=== PATIENT | male | born 1960 | race Caucasian/White ===

== ENCOUNTER 2019-10-28 10:31 | Outpatient (CLI) | payer BC, SELFPAY ==
--- NOTE | ~2019-10-28 | XR_ITS ---
EXAMINATION: XR chest 2V EXAM DATE: 10/28/2019 10:51 INDICATION: Right upper respiratory infection, cough. TECHNIQUE: Frontal and lateral projections of the chest obtained and reviewed. Comparison is made to prior examination from 04/17/2006. FINDINGS: Right midlung zone granuloma. The lungs are otherwise clear. There are no pleural effusio ns. The cardiomediastinal silhouette is within normal limits. There is no pneumothorax suspected. The bones and soft tissues are unremarkable. There is no significant interval change. IMPRESSION: No acute cardiopulmonary findings. Reviewed, dictated and finalized at location A. STRIKER
[2019-10-30 10:50] LABS: CMV IgM Antibody <30.00 AU/mL (<30.00)
[2019-10-30 16:32] LABS: EBV Nuclear Ab Interpretation Past; EBV Virus Capsid Ag IgM Ab <36.00 U/mL (<36.00)
[2019-10-31 10:47] LABS: CMV IgG Antibody <0.60 U/mL (<0.60)
== END 2019-10-28 10:32 | disposition home or self-care (01) ==
PROVIDERS: PCP Family Medicine; Visit Provider Nurse Practitioner Family
DX: J06.9 Acute upper respiratory infection, unspecified (principal)
CPT/HCPCS: 36415; 71046; 86644; 86645; 86664; 86665

== ENCOUNTER 2019-12-03 15:30 | Outpatient (CLI) | payer BC, SELFPAY ==
--- NOTE | ~2019-12-03 | XR_ITS ---
EXAMINATION: XR chest 2V EXAM DATE: 12/03/2019 16:09 INDICATION: Productive cough. TECHNIQUE: Frontal and lateral projections of the chest obtained and reviewed. Comparison is made to prior examination from 10/28/2019. FINDINGS: Right midlung zone granuloma unchanged. The lungs are otherwise clear. There are no pleur al effusions. The cardiomediastinal silhouette is within normal limits. There is no pneumothorax langford spected. The bones and soft tissues are unremarkable. IMPRESSION: No acute cardiopulmonary findings. Reviewed, dictated and finalized at location B.
== END 2019-12-03 15:31 | disposition home or self-care (01) ==
PROVIDERS: PCP Family Medicine; Visit Provider Nurse Practitioner Family
DX: R05 Cough (principal); R53.83 Other fatigue
CPT/HCPCS: 71046

== ENCOUNTER 2019-12-06 09:54 | Outpatient (CLI) | payer BC, SELFPAY ==
[2019-12-06 10:09] LABS: Basophils Percent Auto 0.6 % (0.2-1.2); Eosinophils Absolute Auto 0.1 K/mm3 (0-0.3); Eosinophils Percent Auto 2.2 % (0-4.4); Hematocrit 38.2 % (42.0-52.0); Hemoglobin 13.4 g/dL (14.0-18.0); Immature Granulocyte Absolute 0.02 K/mm3 (0.00-0.031); Immature Granulocyte Percent A 0.3 % (0-0.5); Lymphocytes Absolute Auto 2.55 K/mm3 (0.9-3.2); Mean Corpuscular HGB Conc 35.1 g/dl (32-36); Mean Corpuscular Hemoglobin 33.8 pg (26-34); Mean Corpuscular Volume 96.2 fl (80-100); Mean Platelet Volume 8.7 fl (7.4-10.4); Monocytes Absolute Auto 0.6 K/mm3 (0.1-0.6); Monocytes Percent Auto 9.9 % (2.6-8.5); Platelet Count Result 212 k/mm3 (150-375); Red Blood Count 3.97 M/mm3 (4.6-6.20); Red Cell Distribution Width 11.9 % (11.5-14.5); White Blood Count 6.4 K/mm3 (4.5-10.0)
[2019-12-06 10:21] LABS: Blood Urea Nitrogen 17 mg/dL (9-20); Calcium 8.6 mg/dL (8.4-10.2); Carbon Dioxide 28 mmol/L (22-30); Chloride 101 mmol/L (98-107); Estimated Glomerular Filt Rate > 60; Glucose 115 mg/dL (75-110); Potassium 4.2 mmol/L (3.4-5.0); Sodium 136 mmol/L (137-145)
[2019-12-06 11:07] LABS: Vitamin D 25 Hydroxy 41.8 ng/mL
[2019-12-09 15:58] LABS: Testosterone Total 374 ng/dL (250-1100)
== END 2019-12-06 09:55 | disposition home or self-care (01) ==
PROVIDERS: PCP Family Medicine; Visit Provider Nurse Practitioner Family
DX: R53.83 Other fatigue (principal)
CPT/HCPCS: 36415; 80048; 82306; 84403; 84443; 85025

== ENCOUNTER 2020-10-29 10:27 | Outpatient (CLI) | payer OTHER, SELFPAY ==
[2020-10-29 10:47] LABS: Basophils Absolute Auto 0.1 K/mm3 (0.0-0.1); Basophils Percent Auto 0.9 % (0.2-1.2); Eosinophils Absolute Auto 0.1 K/mm3 (0-0.3); Eosinophils Percent Auto 1.9 % (0-4.4); Hematocrit 42.7 % (42.0-52.0); Immature Granulocyte Absolute 0.01 K/mm3 (0.00-0.031); Immature Granulocyte Percent A 0.2 % (0-0.5); Lymphocytes Absolute Auto 2.13 K/mm3 (0.9-3.2); Lymphocytes Percent Auto 33.4 % (18.3-44.2); Mean Corpuscular HGB Conc 35.1 g/dl (32-36); Mean Corpuscular Hemoglobin 34.4 pg (26-34); Mean Corpuscular Volume 97.9 fl (80-100); Mean Platelet Volume 8.8 fl (7.4-10.4); Monocytes Absolute Auto 0.7 K/mm3 (0.1-0.6); Monocytes Percent Auto 10.8 % (2.6-8.5); Neutrophils Absolute Auto 3.4 K/mm3 (1.3-6.7); Neutrophils Percent Auto 52.8 % (45.5-73.1); Platelet Count Result 217 k/mm3 (150-375); Red Blood Count 4.36 M/mm3 (4.6-6.20); Red Cell Distribution Width 12.3 % (11.5-14.5); White Blood Count 6.4 K/mm3 (4.5-10.0)
[2020-10-29 13:18] LABS: Alanine Aminotransferase 38 U/L (4-50); Albumin Level 4.7 g/dL (3.5-5.1); Alkaline Phosphatase 61 U/L (38-126); Anion Gap 6 mmol/L (8-16); Aspartate Amino Transferase 36 U/L (17-59); Bilirubin,Total 1.2 mg/dL (0.2-1.3); Blood Urea Nitrogen 17 mg/dL (9-20); Calcium 9.4 mg/dL (8.4-10.2); Carbon Dioxide 29 mmol/L (22-30); Chloride 103 mmol/L (98-107); Cholesterol 262 mg/dL (0-200); Estimated Glomerular Filt Rate 56; Glucose 121 mg/dL (75-110); HDL Direct 54 mg/dL; Magnesium 2.1 mg/dL (1.6-2.3); Potassium 4.3 mmol/L (3.4-5.0); Sodium 138 mmol/L (137-145); Triglycerides 190 mg/dL (<150)
[2020-10-29 13:29] LABS: LDL Cholesterol Direct 194 mg/dL
[2020-10-29 13:49] LABS: Prostate Specific Antigen 1.9 ng/mL (< OR = 4.0)
[2020-11-02 11:29] LABS: Testosterone Free 71.8 pg/mL (35.0-155.0); Testosterone Total 443 ng/dL (250-1100)
== END 2020-10-29 10:28 | disposition home or self-care (01) ==
PROVIDERS: PCP Family Medicine; Visit Provider Nurse Practitioner Family
DX: I10 Essential (primary) hypertension (principal); R20.2 Paresthesia of skin; E78.2 Mixed hyperlipidemia; Z13.29 Encounter for screening for other suspected endocrine disorder; E56.9 Vitamin deficiency, unspecified; Z12.5 Encounter for screening for malignant neoplasm of prostate; R79.89 Other specified abnormal findings of blood chemistry
CPT/HCPCS: 36415; 80053; 80061; 82306; 82607; 83735; 84153; 84402; 84403; 84443; 85025; G0103

== ENCOUNTER → 2021-01-07 01:43 | Outpatient (CLI) | payer OTHER, SELFPAY ==
[2021-01-07 19:39] LABS: SARS-CoV-2 RNA PCR Negative
== END ==
PROVIDERS: PCP Family Medicine; Visit Provider Internal Medicine Gastroenterology
DX: Z01.812 Encounter for preprocedural laboratory examination (principal); Z20.822 Contact with and (suspected) exposure to COVID-19
CPT/HCPCS: C9803; U0003; U0005

== ENCOUNTER 2021-01-10 00:48 | Day surgery (SDC) | payer OTHER, SELFPAY ==
[2020-12-30 10:37] VITALS: BMI 28.3
[2021-01-10 08:00] VITALS: BP 136/78; PULSE 97; RESP 18; TEMP 36.6; O2SAT 100; BMI 28.5
[2021-01-10] MEDS: LACTATED RINGERS 1,000 ML 150 ML IV CONT (08:07)
--- NOTE | 2021-01-10 08:25 | PM.HPGS ---
History of Present Illness History of Present Illness Consent: Risks, benefits, and alternatives have been discussed and questions answered. Patient agrees to proceed with procedure. Chief complaint: neoplasm screening, family hx colon CA Narrative: Erickson Hart II is a 60 year old male referred for colon cancer screening. His father had colon cancer Review of Systems Review of Systems: All systems reviewed & are unremarkable except as noted in HPI and below PMFSH Past Medical History Medical History BMI 28.0-28.9,adult Family History Family History Father Carcinoma of colon Family history of primary malignant neoplasm of liver Mother No problems noted. 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 Gender identity (if verbalized by the patient): Male Spiritual care concerns: No Meds Home Medications and Allergies Home Medications Medication Instructions Recorded Confirmed Type albuterol sulfate 90 mcg/actuation 2 inhalation INHALATION Q4H PRN 12/03/19 10/29/20 Rx aerosol inhaler #6.7 gm losartan 100 mg tablet 100 mg PO DAILY #90 tablet 11/01/20 Rx Allergies Allergy/AdvReac Type Severity Reaction Status Date / Time Penicillins Allergy Unknown Unknown Verified 12/30/20 10:40 Vital Signs Vital Signs - 24 hr 01/10/21 08:00 Temperature 36.6 C Pulse Rate 97 Respiratory Rate 18 Blood Pressure 136/78 Pulse Oximetry 100 Exam Resp: Auscultation: clear to auscultation bilaterally Cardio: Rate: regular rate Rhythm: regular rhythm GI: GI Palp: Yes Soft to palpation and No Tenderness to palpation present (GI) Assessment and Plan Assessment and plan (1) Screening for colon cancer: Code(s): Z12.11 - Encounter for screening for malignant neoplasm of colon Status: Acute Assessment and Plan: Colonoscopy with possible biopsy or polypectomy or cautery or injection of substances.
--- NOTE | 2021-01-10 08:44 | P.PNAN_ITS ---
Anes - Initial Pre Proc Eval Procedure: Operation Date: 01/10/21 09:00 Proposed Procedures p Screening Colonoscopy - Sammy Belle MD Date/Time: 01/10/21 08:44 Surgeon: Sammy Belle MD Pre Op Diagnosis: neoplasm screening, family hx colon CA Patient Data Age: 60 Gender: M Height: 6 ft 2 in Weight: 100.9 kg Last Vital Signs Temp 97.8 F 01/10/21 08:00 Pulse 97 01/10/21 08:00 Resp 18 01/10/21 08:00 BP 136/78 01/10/21 08:00 Pulse Ox 100 01/10/21 08:00 Allergies Allergy/AdvReac Type Severity Reaction Status Date / Time Penicillins Allergy Unknown Unknown Verified 12/30/20 10:40 Home Medications Medication Instructions Recorded Confirmed Type albuterol sulfate 90 mcg/actuation 2 inhalation INHALATION Q4H PRN 12/03/19 10/29/20 Rx aerosol inhaler #6.7 gm losartan 100 mg tablet 100 mg PO DAILY #90 tablet 11/01/20 Rx Patient hx anesthesia problems: none Family hx anesthesia problems: none PMFSH Past Medical History Medical History (Updated 01/10/21 @ 08:44 by Sundar Gonzales MD) BMI 28.0-28.9,adult Mixed hyperlipidemia Family History Family History Father Carcinoma of colon Family history of primary malignant neoplasm of liver Mother No problems noted. 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 Questions were solicited and answers provided to the satisfaction of the patient/family/POA.
[2021-01-10 09:19] VITALS: BP 108/71; PULSE 67; RESP 18; O2SAT 100
[2021-01-10 09:29] VITALS: BP 122/78; PULSE 63; RESP 13; O2SAT 99
[2021-01-10 09:39] VITALS: BP 130/72; PULSE 65; RESP 14; O2SAT 97
== END 2021-01-10 10:05 | disposition home or self-care (01) ==
PROVIDERS: PCP Family Medicine; Visit Provider Internal Medicine Gastroenterology
PROC: 0DJD8ZZ Inspection of Lower Intestinal Tract, Via Natural or Artificial Opening Endoscopic (ICD-10-PCS; CPT 45378; principal; 2021-01-10 09:00)
DX: Z12.11 Encounter for screening for malignant neoplasm of colon (principal); K57.30 Diverticulosis of large intestine without perforation or abscess without bleeding; Z80.0 Family history of malignant neoplasm of digestive organs; E78.2 Mixed hyperlipidemia; F17.290 Nicotine dependence, other tobacco product, uncomplicated; Z79.51 Long term (current) use of inhaled steroids
CPT/HCPCS: 45378; C9803; J2704; J7120; U0003; U0005

== ENCOUNTER 2021-03-04 09:19 | Outpatient (CLI) | payer OTHER, SELFPAY ==
[2021-03-04 09:39] LABS: Basophils Absolute Auto 0.1 K/mm3 (0.0-0.1); Basophils Percent Auto 0.9 % (0.2-1.2); Eosinophils Absolute Auto 0.1 K/mm3 (0-0.3); Eosinophils Percent Auto 2.4 % (0-4.4); Hematocrit 41.5 % (42.0-52.0); Hemoglobin 14.6 g/dL (14.0-18.0); Immature Granulocyte Absolute 0.02 K/mm3 (0.00-0.031); Immature Granulocyte Percent A 0.3 % (0-0.5); Lymphocytes Absolute Auto 1.91 K/mm3 (0.9-3.2); Lymphocytes Percent Auto 32.8 % (18.3-44.2); Mean Corpuscular HGB Conc 35.2 g/dl (32-36); Mean Corpuscular Hemoglobin 34.5 pg (26-34); Mean Corpuscular Volume 98.1 fl (80-100); Monocytes Absolute Auto 0.7 K/mm3 (0.1-0.6); Monocytes Percent Auto 11.1 % (2.6-8.5); Neutrophils Absolute Auto 3.1 K/mm3 (1.3-6.7); Neutrophils Percent Auto 52.5 % (45.5-73.1); Platelet Count Result 204 k/mm3 (150-375); Red Blood Count 4.23 M/mm3 (4.6-6.20); Red Cell Distribution Width 12.4 % (11.5-14.5); White Blood Count 5.8 K/mm3 (4.5-10.0)
[2021-03-04 09:54] LABS: Anion Gap 6 mmol/L (8-16); Blood Urea Nitrogen 18 mg/dL (9-20); Calcium 9.4 mg/dL (8.4-10.2); Carbon Dioxide 29 mmol/L (22-30); Chloride 104 mmol/L (98-107); Cholesterol 223 mg/dL (0-200); Estimated Glomerular Filt Rate > 60; Glucose 121 mg/dL (75-110); HDL Direct 51 mg/dL; Sodium 139 mmol/L (137-145); Triglycerides 122 mg/dL (<150)
[2021-03-04 13:55] LABS: Hemoglobin A1C 5.8 % (<5.7)
[2021-03-04 15:30] LABS: LDL Cholesterol Direct 141 mg/dL
== END 2021-03-04 09:20 | disposition home or self-care (01) ==
PROVIDERS: PCP Family Medicine; Visit Provider Nurse Practitioner Family
DX: R94.4 Abnormal results of kidney function studies (principal); E78.2 Mixed hyperlipidemia; D64.9 Anemia, unspecified; R73.09 Other abnormal glucose
CPT/HCPCS: 36415; 80048; 80061; 83036; 85025

== ENCOUNTER 2021-04-29 10:36 | Outpatient (CLI) | payer OTHER, SELFPAY ==
[2021-04-29 11:01] LABS: Iron 102 ug/dL (49-181)
[2021-04-29 11:12] LABS: Percent Iron Saturation 33 % (20-50)
== END 2021-04-29 10:37 | disposition home or self-care (01) ==
PROVIDERS: PCP Family Medicine; Visit Provider Nurse Practitioner Family
DX: D64.9 Anemia, unspecified (principal)
CPT/HCPCS: 36415; 83540; 83550

== ENCOUNTER 2022-03-17 09:18 | Outpatient (CLI) | payer OTHER, SELFPAY ==
[2022-03-17 10:13] LABS: Hematocrit 41.5 % (42.0-52.0); Hemoglobin 14.2 g/dL (14.0-18.0); Mean Corpuscular HGB Conc 34.2 g/dl (32-36); Mean Corpuscular Hemoglobin 33.8 pg (26-34); Mean Corpuscular Volume 98.8 fl (80-100); Mean Platelet Volume 9.4 fl (7.4-10.4); Platelet Count Result 220 k/mm3 (150-375); Red Cell Distribution Width 12.6 % (11.5-14.5); White Blood Count 5.6 K/mm3 (4.5-10.0)
[2022-03-17 10:27] LABS: Alanine Aminotransferase 32 U/L (6-50); Albumin Level 4.5 g/dL (3.5-5.1); Alkaline Phosphatase 60 U/L (38-126); Anion Gap 7 mmol/L (8-16); Aspartate Amino Transferase 30 U/L (17-59); Bilirubin,Total 0.8 mg/dL (0.2-1.3); Blood Urea Nitrogen 17 mg/dL (9-20); Carbon Dioxide 29 mmol/L (22-30); Chloride 103 mmol/L (98-107); Cholesterol 254 mg/dL (0-200); Estimated Glomerular Filt Rate > 60; Glucose 127 mg/dL (65-110); HDL Direct 47 mg/dL; Potassium 4.7 mmol/L (3.4-5.0); Sodium 139 mmol/L (137-145); Triglycerides 189 mg/dL (<150)
[2022-03-17 10:38] LABS: LDL Cholesterol Direct 158 mg/dL
[2022-03-17 10:58] LABS: Prostate Specific Antigen 2.6 ng/mL (< OR = 4.0)
[2022-03-17 11:07] LABS: Vitamin D 25 Hydroxy 62.6 ng/mL
[2022-03-22 10:33] LABS: Testosterone Total 417 ng/dL (250-1100)
== END 2022-03-17 09:19 | disposition home or self-care (01) ==
LOC: ANHLAB 09:19
PROVIDERS: PCP Family Medicine; Visit Provider Nurse Practitioner Family
DX: E55.9 Vitamin D deficiency, unspecified (principal); I10 Essential (primary) hypertension; Z12.5 Encounter for screening for malignant neoplasm of prostate; R79.89 Other specified abnormal findings of blood chemistry; Z13.29 Encounter for screening for other suspected endocrine disorder
CPT/HCPCS: 36415; 80053; 80061; 82306; 84153; 84402; 84403; 84443; 85027; G0103

== ENCOUNTER 2022-04-25 17:44 | Outpatient (CLI) | payer OTHER, SELFPAY ==
[2022-04-25 17:58] LABS: Hematocrit 39.5 % (42.0-52.0); Hemoglobin 13.9 g/dL (14.0-18.0); Mean Corpuscular HGB Conc 35.2 g/dl (32-36); Mean Corpuscular Hemoglobin 34.5 pg (26-34); Mean Platelet Volume 8.8 fl (7.4-10.4); Platelet Count Result 231 k/mm3 (150-375); Red Blood Count 4.03 M/mm3 (4.6-6.20); Red Cell Distribution Width 12.3 % (11.5-14.5); White Blood Count 6.9 K/mm3 (4.5-10.0)
[2022-04-25 18:56] LABS: Hemoglobin A1C 5.9 % (<5.7)
== END 2022-04-25 17:45 | disposition home or self-care (01) ==
LOC: ANHLAB 17:46
PROVIDERS: PCP Family Medicine; Visit Provider Nurse Practitioner Family
DX: R73.09 Other abnormal glucose (principal); D64.9 Anemia, unspecified
CPT/HCPCS: 36415; 83036; 85027

== ENCOUNTER → 2022-07-07 09:39 | Outpatient (CLI) | payer OTHER, SELFPAY ==
--- NOTE | ~2022-07-07 | CT_ITS ---
EXAMINATION: CT abdomen pelvis wo/w con DATE: 07/07/2022 10:48 INDICATION: Right lower quadrant pain and right hip pain for one month. TECHNIQUE: Computed tomography (CT) of the abdomen and pelvis was performed without and with 100 cc O mnipaque 350 intravenous contrast. The dose-length product was 1514.48 mGy-cm. Automated exposure con trol and iterative reconstruction technique were employed. COMPARISON: CT dated 06/05/2012 FINDINGS: Lung bases are unremarkable. No significant pleural or pericardial effusion. Heart size is normal. There are calcified granulomas of the spleen. Ureters are normal in course and caliber withou t evidence for stone or hydronephrosis. Bladder is unremarkable. The liver, spleen, pancreas, adrenal glands and kidneys are unremarkable. The appendix is mildly thic kened and enhancing measuring 9 mm transversely. No significant periappendiceal inflammation is ident ified. No free air or free fluid. No evidence for abscess. Colonic diverticulosis without evidence fo r diverticulitis. Prostate gland is enlarged. No obstruction. There is atherosclerosis of the aorta w ithout aneurysm. No lymphadenopathy. Mild lumbar spondylosis. Small fat-containing umbilical hernia. Small fat-containing right inguinal hernia. No free air or free fluid. IMPRESSION: 1. Mildly thickened enhancing appendix measuring 9 mm transversely. No surrounding inflammatory lopez es are seen. Findings are equivocal for acute appendicitis. Clinically correlate. Reviewed, dictated and finalized at location A. IMPRESSION: 1. Mildly thickened enhancing appendix measuring 9 mm transversely. No surround ing inflammatory changes are seen. Findings are equivocal for acute appendiciti s. Clinically correlate.
[2022-07-07 10:37] LABS: Estimated Glomerular Filt Rate > 60
== END ==
PROVIDERS: PCP Family Medicine; Visit Provider Nurse Practitioner Family
DX: R10.31 Right lower quadrant pain (principal)
CPT/HCPCS: 74178; Q9967

== ENCOUNTER 2022-07-07 13:48 | Outpatient (CLI) | payer OTHER, SELFPAY ==
[2022-07-07 14:21] LABS: Basophils Absolute Auto 0.1 K/mm3 (0.0-0.1); Basophils Percent Auto 0.9 % (0.2-1.2); Eosinophils Absolute Auto 0.1 K/mm3 (0-0.3); Eosinophils Percent Auto 1.1 % (0-4.4); Hematocrit 42.2 % (42.0-52.0); Hemoglobin 14.5 g/dL (14.0-18.0); Immature Granulocyte Absolute 0.02 K/mm3 (0.00-0.031); Immature Granulocyte Percent A 0.3 % (0-0.5); Lymphocytes Absolute Auto 1.85 K/mm3 (0.9-3.2); Lymphocytes Percent Auto 28.1 % (18.3-44.2); Mean Corpuscular HGB Conc 34.4 g/dl (32-36); Mean Corpuscular Hemoglobin 33.7 pg (26-34); Mean Corpuscular Volume 98.1 fl (80-100); Monocytes Absolute Auto 0.6 K/mm3 (0.1-0.6); Monocytes Percent Auto 9.3 % (2.6-8.5); Neutrophils Percent Auto 60.3 % (45.5-73.1); Platelet Count Result 240 k/mm3 (150-375); Red Cell Distribution Width 12.6 % (11.5-14.5); White Blood Count 6.6 K/mm3 (4.5-10.0)
[2022-07-07 14:28] LABS: Alanine Aminotransferase 32 U/L (6-50); Albumin Level 4.5 g/dL (3.5-5.1); Alkaline Phosphatase 71 U/L (38-126); Anion Gap 7 mmol/L (8-16); Aspartate Amino Transferase 27 U/L (17-59); Bilirubin,Total 0.6 mg/dL (0.2-1.3); Blood Urea Nitrogen 16 mg/dL (9-20); Calcium 9.2 mg/dL (8.4-10.2); Carbon Dioxide 30 mmol/L (22-30); Chloride 101 mmol/L (98-107); Estimated Glomerular Filt Rate > 60; Glucose 176 mg/dL (65-110); Potassium 4.5 mmol/L (3.4-5.0); Sodium 138 mmol/L (137-145); Uric Acid 6.3 mg/dL (3.5-8.5)
== END 2022-07-07 13:49 | disposition home or self-care (01) ==
LOC: ANHLAB 13:49
PROVIDERS: PCP Family Medicine; Visit Provider Nurse Practitioner Family
DX: R10.31 Right lower quadrant pain (principal)
CPT/HCPCS: 36415; 80053; 84550; 85025

== ENCOUNTER → 2022-10-27 08:49 | Outpatient (CLI) | payer OTHER, SELFPAY ==
--- NOTE | ~2022-10-27 | XR_ITS ---
AP view of the pelvis and AP and lateral views of the right hip Clinical history: Pain Findings: No acute fracture or dislocation is seen. Osseous alignment is anatomic. Minimal bony promi nence present at the femoral head neck junctions. Bilateral hip and SI joint spaces are preserved. So ft tissues are unremarkable. Impression: Minimal degenerative change of the bilateral hip joints. Reviewed, dictated and finalized at location . 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
--- NOTE | ~2022-10-27 | XR_ITS ---
EXAMINATION: XR lumbar spine 6V w bending DATE: 10/27/2022 09:39 INDICATION: Chronic low back pain TECHNIQUE: Anteroposterior, lateral in neutral, flexion and extension, and bilateral oblique views of the lumbar spine, and cone-down lateral view of the lumbosacral junction were obtained. COMPARISON: CT, 07/07/2022 FINDINGS: There are 2 mm of retrolisthesis of L2 on L3 and L3 on L4. No hypermobility is present with flexion or extension. The vertebral body heights are maintained. There is mild loss of intervertebra l disc space height throughout the lumbar spine. Small degenerative osteophytes project from the ante rior endplates of multiple vertebral bodies. There is mild facet joint osteoarthritis of the lower janet mbar spine. IMPRESSION: 1. Mild lumbar spondylosis without acute findings. Reviewed, dictated and finalized at location B. 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
== END ==
PROVIDERS: PCP Family Medicine; Visit Provider Nurse Practitioner Family
DX: R20.2 Paresthesia of skin (principal); M25.551 Pain in right hip; M43.06 Spondylolysis, lumbar region
CPT/HCPCS: 72114; 73502

== ENCOUNTER → 2022-12-08 14:56 | Outpatient (CLI) | payer OTHER, SELFPAY ==
--- NOTE | ~2022-12-08 | MR_ITS ---
EXAMINATION: MR hip RT wo/w con DATE: 12/08/2022 15:56 INDICATION: Worsening right hip pain TECHNIQUE: Magnetic resonance imaging (MRI) of the right hip was performed without intravenous contr ast. Sequences included full-field axial PD-weighted FS FSE and T1-weighted FSE, coronal of the pelvi s with PD-weighted FS FSE, T2-weighted FSE and T1-weighted FSE, small field of view of the right hip with axial PD-weighted FS FSE, sagittal PD-weighted FS FSE, coronal PD-weighted FS FSE and coronal T2 weighted FSE. Additional radial T1-weighted FGR oriented orthogonal to the acetabular rim were obt ained for evaluation of the labrum. Postcontrast T1-weighted FS FSE and axial view of the pelvis and coronal small field of view of the right hip were obtained. COMPARISON: None FINDINGS: Bones/labrum/cartilage: Alignment is normal. No fracture, avascular necrosis or pathologic marrow replacing process. Mild ri ght hip osteoarthritis with partial thickness cartilage loss without degenerative subchondral changes most prominent along the superolateral aspect of the joint space. There is a tear of the superolater al right acetabular labrum. Similar findings suggested but not diagnostically evaluated the contralat eral left hip on the larger [id number] images. Fluid: Symmetric physiologic amount of fluid within both hip joints. Soft tissues: Normal and symmetric muscle bulk and signal in the pelvis and visualized proximal thighs. The bilater al iliopsoas tendons are normal. Mild increased fluid signal and enhancement along the greater trocha nter consistent with mild gluteus medius and minimus bursitis. There is mild right gluteus minimus te ndinopathy without discrete tear. The remaining bilateral gluteal tendons are normal. Additional mild fluid signal and enhancement consistent with mild left ischial bursitis with mild tendinopathy witho ut discrete tear at the proximal left semimembranosus tendon. The remaining bilateral proximal hamstr ing tendons are normal. Mild sigmoid diverticulosis without adjacent from trace stranding to suggest diverticular colitis. Limited evaluation of visceral organs of the pelvis is otherwise unremarkable. No pathologically enlarged pelvic/inguinal lymphadenopathy. IMPRESSION: 1. Mild right hip osteoarthritis with tear at the superolateral right acetabular labrum. Similar find ings suggested but not diagnostically evaluated the contralateral left hip on the larger [id number] w images. 2. Mild left ischial bursitis with mild tendinopathy without tear of the proximal left semimembranosu s tendon. 3. Mild right gluteus medius and minimus bursitis and mild right gluteus minimus tendinopathy without discrete tear. Reviewed, dictated and finalized at location B. IMPRESSION: 1. Mild right hip osteoarthritis with tear at the superolateral right acetabula r labrum. Similar findings suggested but not diagnostically evaluated the contr alateral left hip on the larger [id number] images. 2. Mild left ischial bursitis with mild tendinopathy without tear of the proxim al left semimembranosus tendon. 3. Mild right gluteus medius and minimus bursitis and mild right gluteus minimu s tendinopathy without discrete tear.
== END ==
PROVIDERS: PCP Family Medicine; Visit Provider Nurse Practitioner Family
DX: R20.2 Paresthesia of skin (principal); M16.11 Unilateral primary osteoarthritis, right hip; M70.71 Other bursitis of hip, right hip
CPT/HCPCS: 73723; A9577

== ENCOUNTER → 2023-07-13 07:10 | Outpatient (CLI) | payer OTHER, SELFPAY ==
--- NOTE | ~2023-07-13 | XR_ITS ---
XR chest 2V DATE: 07/13/2023 07:25 INDICATION: Cough TECHNIQUE: PA and lateral views COMPARISON: None FINDINGS: Normal heart size. No hilar or mediastinal enlargement. No pulmonary infiltrate or consolid ation, pleural effusion or pulmonary vascular congestion or pneumothorax. IMPRESSION: No active cardiopulmonary disease Reviewed, dictated and finalized at location B.
== END ==
PROVIDERS: PCP Nurse Practitioner Family; Visit Provider Nurse Practitioner Family
DX: R05.9 Cough, unspecified (principal)
CPT/HCPCS: 71046

== ENCOUNTER 2023-08-14 06:52 | Outpatient (CLI) | payer OTHER, SELFPAY ==
[2023-08-14 07:15] LABS: Hematocrit 41.6 % (42.0-52.0); Hemoglobin 14.3 g/dL (14.0-18.0); Mean Corpuscular HGB Conc 34.4 g/dl (32-36); Mean Corpuscular Hemoglobin 33.6 pg (26-34); Mean Corpuscular Volume 97.9 fl (80-100); Mean Platelet Volume 8.7 fl (7.4-10.4); Platelet Count Result 215 k/mm3 (150-375); Red Blood Count 4.25 M/mm3 (4.6-6.20); Red Cell Distribution Width 12.4 % (11.5-14.5); White Blood Count 5.6 K/mm3 (4.5-10.0)
[2023-08-14 07:47] LABS: Glucose Fasting 130 mg/dL
[2023-08-14 19:02] LABS: Hemoglobin A1C 6.1 % (<5.7)
[2023-08-14 23:19] LABS: Alanine Aminotransferase 27 U/L (6-50); Albumin Level 4.2 g/dL (3.5-5.1); Alkaline Phosphatase 61 U/L (38-126); Anion Gap 7 mmol/L (8-16); Aspartate Amino Transferase 27 U/L (17-59); Bilirubin,Total 0.6 mg/dL (0.2-1.3); Blood Urea Nitrogen 19 mg/dL (9-20); Calcium 9.3 mg/dL (8.4-10.2); Carbon Dioxide 28 mmol/L (22-30); Chloride 103 mmol/L (98-107); Cholesterol 219 mg/dL (0-200); Estimated Glomerular Filt Rate 56; Glucose 131 mg/dL (65-110); HDL Direct 45 mg/dL; Potassium 4.6 mmol/L (3.4-5.0); Sodium 138 mmol/L (137-145); Triglycerides 150 mg/dL (<150)
[2023-08-14 23:30] LABS: LDL Cholesterol Direct 146 mg/dL
[2023-08-18 19:38] LABS: Testosterone Free 90.5 pg/mL (35.0-155.0); Testosterone Total 484 ng/dL (250-1100)
[2023-08-19 12:22] LABS: ANCA Screen Negative (Negative); Myeloperoxidase Ab <1.0 AI (<1.0); Proteinase-3 Ab <1.0 AI (<1.0); S cerevisiae Ab (IgA) 15.9 U (<=20.0); S cerevisiae Ab (IgG) 4.9 U (<=20.0)
== END 2023-08-14 06:53 | disposition home or self-care (01) ==
LOC: ANHLAB 06:54
PROVIDERS: Nurse Practitioner Family; PCP Nurse Practitioner Family; Visit Provider Nurse Practitioner Family
DX: I10 Essential (primary) hypertension (principal); R10.31 Right lower quadrant pain; Z12.5 Encounter for screening for malignant neoplasm of prostate; Z13.29 Encounter for screening for other suspected endocrine disorder; Z13.220 Encounter for screening for lipoid disorders; R79.89 Other specified abnormal findings of blood chemistry; R73.09 Other abnormal glucose
CPT/HCPCS: 36415; 80053; 80061; 82951; 82952; 83036; 84153; 84402; 84403; 84443; 85027; 86036; 86671; G0103

== ENCOUNTER 2023-11-23 07:38 | Outpatient (CLI) | payer OTHER, SELFPAY ==
[2023-11-23 08:45] LABS: Hematocrit 42.8 % (42.0-52.0); Hemoglobin 14.5 g/dL (14.0-18.0); Mean Corpuscular HGB Conc 33.9 g/dl (32-36); Mean Corpuscular Hemoglobin 33.3 pg (26-34); Mean Corpuscular Volume 98.4 fl (80-100); Mean Platelet Volume 9.4 fl (7.4-10.4); Platelet Count Result 246 k/mm3 (150-375); Red Blood Count 4.35 M/mm3 (4.6-6.20); Red Cell Distribution Width 12.3 % (11.5-14.5); White Blood Count 8.1 K/mm3 (4.5-10.0)
[2023-11-23 09:26] LABS: Prostate Specific Antigen 2.2 ng/mL (< OR = 4.0)
[2023-11-23 09:56] LABS: Hemoglobin A1C 6.6 % (<5.7)
[2023-11-23 10:54] LABS: Anion Gap 4 mmol/L (8-16); Blood Urea Nitrogen 20 mg/dL (9-20); Calcium 9.1 mg/dL (8.4-10.2); Carbon Dioxide 30 mmol/L (22-30); Chloride 102 mmol/L (98-107); Estimated Glomerular Filt Rate > 60; Glucose 123 mg/dL (65-110); Potassium 4.3 mmol/L (3.4-5.0); Sodium 136 mmol/L (137-145)
== END 2023-11-23 07:39 | disposition home or self-care (01) ==
LOC: ANHLAB 07:39
PROVIDERS: Physician Assistant Medical; PCP Family Medicine; Visit Provider Nurse Practitioner Family
DX: N28.9 Disorder of kidney and ureter, unspecified (principal); D64.9 Anemia, unspecified; R97.20 Elevated prostate specific antigen [PSA]; R73.03 Prediabetes
CPT/HCPCS: 36415; 80048; 83036; 84153; 85027; G0103

== ENCOUNTER 2024-05-19 13:18 | Outpatient (CLI) | payer OTHER, SELFPAY ==
[2024-05-19 13:48] LABS: Hematocrit 39.8 % (42.0-52.0); Hemoglobin 14.1 g/dL (14.0-18.0); Mean Corpuscular HGB Conc 35.4 g/dl (32-36); Mean Corpuscular Hemoglobin 34.8 pg (26-34); Mean Corpuscular Volume 98.3 fl (80-100); Platelet Count Result 225 k/mm3 (150-375); Red Blood Count 4.05 M/mm3 (4.6-6.20); Red Cell Distribution Width 12.2 % (11.5-14.5); White Blood Count 5.6 K/mm3 (4.5-10.0)
[2024-05-19 14:01] LABS: Alanine Aminotransferase 31 U/L (6-50); Albumin Level 4.4 g/dL (3.5-5.1); Alkaline Phosphatase 62 U/L (38-126); Anion Gap 9 mmol/L (4-12); Aspartate Amino Transferase 30 U/L (17-59); Bilirubin,Total 0.8 mg/dL (0.2-1.3); Blood Urea Nitrogen 17 mg/dL (9-20); Calcium 9.1 mg/dL (8.4-10.2); Carbon Dioxide 29 mmol/L (22-30); Chloride 99 mmol/L (98-107); Estimated Glomerular Filt Rate 56; Glucose 97 mg/dL (65-110); Potassium 4.3 mmol/L (3.4-5.0); Sodium 137 mmol/L (137-145)
[2024-05-19 15:40] LABS: D Dimer < 0.27 ug/mL (<0.48)
== END 2024-05-19 13:19 | disposition home or self-care (01) ==
LOC: ANHLAB 13:19
PROVIDERS: PCP Family Medicine; Visit Provider Nurse Practitioner Family
DX: R06.02 Shortness of breath (principal); R07.9 Chest pain, unspecified
CPT/HCPCS: 36415; 80053; 85027; 85380

== ENCOUNTER 2024-06-13 15:50 | Outpatient (CLI) | payer OTHER, SELFPAY ==
[2024-06-13 16:07] LABS: Basophils Absolute Auto 0.1 K/mm3 (0.0-0.1); Eosinophils Absolute Auto 0.1 K/mm3 (0-0.3); Hematocrit 41.3 % (42.0-52.0); Hemoglobin 14.6 g/dL (14.0-18.0); Immature Granulocyte Absolute 0.01 K/mm3 (0.00-0.031); Immature Granulocyte Percent A 0.1 % (0-0.5); Lymphocytes Absolute Auto 2.34 K/mm3 (0.9-3.2); Lymphocytes Percent Auto 33.5 % (18.3-44.2); Mean Corpuscular HGB Conc 35.4 g/dl (32-36); Mean Corpuscular Hemoglobin 34.8 pg (26-34); Mean Corpuscular Volume 98.6 fl (80-100); Monocytes Absolute Auto 0.9 K/mm3 (0.1-0.6); Monocytes Percent Auto 13.3 % (2.6-8.5); Neutrophils Absolute Auto 3.5 K/mm3 (1.3-6.7); Neutrophils Percent Auto 50.1 % (45.5-73.1); Platelet Count Result 217 k/mm3 (150-375); Red Blood Count 4.19 M/mm3 (4.6-6.20); Red Cell Distribution Width 12.3 % (11.5-14.5)
[2024-06-13 16:18] LABS: Alanine Aminotransferase 21 U/L (6-50); Albumin Level 4.6 g/dL (3.5-5.1); Alkaline Phosphatase 59 U/L (38-126); Anion Gap 8 mmol/L (4-12); Aspartate Amino Transferase 23 U/L (17-59); Bilirubin,Total 0.8 mg/dL (0.2-1.3); Blood Urea Nitrogen 22 mg/dL (9-20); Calcium 9.2 mg/dL (8.4-10.2); Carbon Dioxide 29 mmol/L (22-30); Chloride 100 mmol/L (98-107); Estimated Glomerular Filt Rate 56; Glucose 88 mg/dL (65-110); Potassium 4.3 mmol/L (3.4-5.0); Sodium 137 mmol/L (137-145)
[2024-06-13 16:27] LABS: Iron 138 ug/dL (49-181)
[2024-06-13 16:38] LABS: Percent Iron Saturation 41 % (20-50)
[2024-06-13 17:23] LABS: Folic Acid 19.8 ng/mL (2.76->20)
== END 2024-06-13 15:51 | disposition home or self-care (01) ==
LOC: ANHLAB 15:52
PROVIDERS: PCP Family Medicine; Visit Provider Nurse Practitioner Family
DX: R10.30 Lower abdominal pain, unspecified (principal); D64.9 Anemia, unspecified
CPT/HCPCS: 36415; 80053; 82607; 82746; 83540; 83550; 85025

== ENCOUNTER 2024-06-13 23:42 | Inpatient (IN) | payer OTHER, SELFPAY ==
--- NOTE | ~2024-06-13 | XR_ITS ---
XR chest 1V portable Ordering provider: Kevin Figueroa MD History: 63 years Male with . chest pain . Comparison: July 13, 2023 FINDINGS: MEDIASTINUM: The cardiac silhouette is not enlarged. LUNGS: No infiltrates, effusions or pneumothorax. OTHER: No free air under the diaphragm. IMPRESSION: No acute cardiopulmonary pathology. Reviewed, dictated and finalized at location A.
--- NOTE | 2024-06-13 23:44 | ECG_ITS ---
Test Date: 2024-06-13 23:47:45 Measurements Intervals [place] Rate: 90 P: 71 WI: 195 QRS: 61 QRSD: 112 T: 41 QT: 355 QTc: 436 Interpretive Statements SINUS RHYTHM POSSIBLE LEFT ATRIAL ENLARGEMENT INTRAVENTRICULAR CONDUCTION DELAY ST-T WAVE ABNORMALITY IN DIFFUSE LEADS- CONSIDER ISCHEMIA ABNORMAL ECG No previous ECG available for comparison Electronically Signed On 06-14-2024 07:50:27 CDT by Osmani Campos D.O.
[2024-06-13 23:47] VITALS: BP 180/92; PULSE 84; RESP 15; TEMP 36.5; O2SAT 100
[2024-06-14] VITALS (19 sets, daily range): BP systolic 112–150; BP diastolic 64–86; PULSE 54–87; RESP 12–24; TEMP 36.3–36.9; O2SAT 95–100; BMI 27.9; BMI 27.8
[2024-06-14 00:01] LABS: Basophils Absolute Auto 0.1 K/mm3 (0.0-0.1); Basophils Percent Auto 0.6 % (0.2-1.2); Eosinophils Absolute Auto 0.2 K/mm3 (0-0.3); Eosinophils Percent Auto 2.6 % (0-4.4); Hematocrit 41.1 % (42.0-52.0); Hemoglobin 14.6 g/dL (14.0-18.0); Immature Granulocyte Absolute 0.01 K/mm3 (0.00-0.031); Immature Granulocyte Percent A 0.1 % (0-0.5); Lymphocytes Absolute Auto 2.84 K/mm3 (0.9-3.2); Lymphocytes Percent Auto 35.2 % (18.3-44.2); Mean Corpuscular HGB Conc 35.5 g/dl (32-36); Mean Corpuscular Hemoglobin 34.8 pg (26-34); Mean Corpuscular Volume 97.9 fl (80-100); Mean Platelet Volume 9.2 fl (7.4-10.4); Monocytes Percent Auto 12.3 % (2.6-8.5); Neutrophils Percent Auto 49.2 % (45.5-73.1); Platelet Count Result 220 k/mm3 (150-375); Red Cell Distribution Width 12.3 % (11.5-14.5); White Blood Count 8.1 K/mm3 (4.5-10.0)
[2024-06-14] MEDS: NITROGLYCERIN SL 0.4 MG TABLET SUBLINGUAL (00:11)
[2024-06-14 00:12] LABS: Alanine Aminotransferase 22 U/L (6-50); Albumin Level 4.6 g/dL (3.5-5.1); Alkaline Phosphatase 82 U/L (38-126); Anion Gap 11 mmol/L (4-12); Aspartate Amino Transferase 26 U/L (17-59); Bilirubin,Total 0.5 mg/dL (0.2-1.3); Blood Urea Nitrogen 26 mg/dL (9-20); Calcium 9.4 mg/dL (8.4-10.2); Carbon Dioxide 25 mmol/L (22-30); Chloride 99 mmol/L (98-107); Estimated CRCL calculation 56 ml/min; Estimated Glomerular Filt Rate 51; Glucose 157 mg/dL (65-110); Lipase 128 U/L (23-300); Potassium 3.9 mmol/L (3.4-5.0); Sodium 135 mmol/L (137-145)
[2024-06-14 00:19] LABS: Prothrombin Time 13.7 Seconds (11.1-14.7)
[2024-06-14 00:20] LABS: Partial Thromboplastin Time 27.6 Seconds (22.3-36.8)
--- NOTE | 2024-06-14 00:20 | ED.GENADULT ---
HPI - General Adult General Chief complaint: Chest Pain Stated complaint: chest pain Time Seen by Provider: 06/13/24 23:47 History of Present Illness HPI narrative: Patient is a 63-year-old gentleman presents emergency department with chief complaint of left arm discomfort and fluttering in his chest. Patient states symptoms ongoing for the last month report that been getting more frequent and reports that they are worse with exertion. Patient reports that he is scheduled for a stress test next week but reports that today that discomfort in his arm continued after he stops exerting himself patient reports was worse whenever [place] and also reports that it was worse whenever he walked up the stairs. Related Data Allergies Allergy/AdvReac Type Severity Reaction Status Date / Time Penicillins Allergy Unknown Unknown Verified 05/19/24 12:36 Review of Systems Review of Systems: A 10 system review of systems was completed on the patient and is negative except for what is stated in the HPI. Nursing and ancillary documentation was reviewed. [facility] Past Medical History Medical History Acute bronchitis Cataract associated with other syndromes Elevated hemoglobin A1c Labral tear of hip joint Mixed hyperlipidemia New onset type 2 diabetes mellitus Paresthesia of right leg Prediabetes Screening for colon cancer Screening for malignant neoplasm of prostate Family History Family History Father Carcinoma of colon Family history of primary malignant neoplasm of liver Cerebrovascular accident Mother Acute myocardial infarction Other Diabetes mellitus Hypertension Social History Social History Smoking status: Current some day smoker (has one cigar every couple of months) Tobacco type: cigars Second hand tobacco smoke exposure: Yes Smoking end date: 09/24/81 Alcohol intake: current Drinks per week: 10 Substance use: never Substance use type: does not use Do You Feel Safe in your Home?: Yes Lack of Transportation: YES Lack of Food: Never True Current Housing: I Have Housing Concerned About Future Housing: No Difficulty Paying Gas/Electric Bills: No Difficulty Paying for Meds: No Currently Unemployed: No Education: Bachelor's Degree Difficulty w/ Childcare or Family Care: No Living arrangements: with family Occupation/Education: occupation 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 HEAD: Normocephalic, atraumatic. EYES: PERRLA and EOMI. ENT: Nares clear, no rhinorrhea or epistaxis. Mucous membranes moist. NECK: Supple. CHEST: Clear to auscultation. No respiratory distress. HEART: Regular rate and rhythm. No murmur heard. Normal peripheral pulses. ABDOMEN: Soft, nontender, nondistended, normal active bowel sounds. EXTREMITIES: Normal range of motion. No edema. SKIN: Warm, dry, no rash. NEURO: No focal deficits. Alert and oriented x3. PSYCH: Normal mood and affect. Course Vital Signs Vital signs: Vital Signs Temperature 36.5 C 06/13/24 23:47 Pulse Rate 84 06/13/24 23:47 Respiratory Rate 15 06/13/24 23:47 Blood Pressure 180/92 H 06/13/24 23:47 Pulse Oximetry 100 06/13/24 23:47 Oxygen Delivery Room Air 06/13/24 23:47 Temperature 36.5 C 06/13/24 23:47 Pulse Rate 86 06/14/24 01:47 Respiratory Rate 15 06/14/24 01:47 Blood Pressure 112/86 06/14/24 01:47 Pulse Oximetry 99 06/14/24 01:47 Oxygen Delivery Room Air 06/13/24 23:47 Medical Decision Making MDM Narrative Medical decision making narrat
[2024-06-14 00:24] LABS: Troponin I 0.016 ng/mL (0.000-0.034)
--- NOTE | 2024-06-14 03:00 | ECG_ITS ---
Test Date: 2024-06-14 02:52:52 Measurements Intervals [place] Rate: 63 P: 62 MD: 189 QRS: 12 QRSD: 115 T: 23 QT: 427 QTc: 440 Interpretive Statements SINUS RHYTHM INTRAVENTRICULAR CONDUCTION DELAY BORDERLINE ST-T WAVE ABNORMALITY- ANT/INF LEADS BORDERLINE ECG Compared to ECG 06/13/2024 23:47:45 Possible ischemia no longer present Electronically Signed On 06-14-2024 07:53:01 CDT by Osmani Campos D.O.
[2024-06-14 03:46] LABS: Troponin I 0.058 ng/mL (0.000-0.034)
--- NOTE | 2024-06-14 04:52 | PC.NURSE ---
Report to GINGER Peña. Reports no questions at this time.
--- NOTE | 2024-06-14 05:03 | ADMGEN ---
This patient, Erickson Hart II, was admitted to IMU Room 210-01 at 0500. Patient/family oriented to hospital policies and general routines including ID bracelet, bed and alarms, visiting hours, pain management, procedures, bathroom and other care routines, personal items, smoking policy, room service/diet, and visiting hours. Information on how to activate the Rapid Response Team has been discussed. Patient/Family are encouraged to report perceived risks to care and to ask questions if they do not understand what they are told or what they should do.
[2024-06-14 06:47] LABS: Troponin I 0.135 ng/mL (0.000-0.034)
--- NOTE | 2024-06-14 08:44 | PM.IMHP ---
H&P: HPI History of Present Illness Date/Time: 06/14/24 08:44 Chief Complaint: Chest pain Narrative: Patient is a 63-year-old gentleman presents emergency department with chief complaint of left arm discomfort and fluttering in his chest. Patient states symptoms ongoing for the last month report that been getting more frequent and reports that they are worse with exertion. Patient reports that he is scheduled for a stress test next week but reports that today that discomfort in his arm continued after he stops exerting himself patient reports was worse whenever he was walking around at the [place] and also reports that it was worse whenever he walked up the stairs. Review of Systems Review of Systems: - CONSTITUTIONAL: Denies weight loss, fever and chills. - HEENT: Denies changes in vision and hearing - RESPIRATORY: Denies SOB and cough. - CV: reports palpitations and CP. - GI: Denies abdominal pain, nausea, vomiting and diarrhea. - : Denies dysuria and urinary frequency. - MSK: Denies myalgia and joint pain. - SKIN: Denies rash and pruritus. - NEUROLOGICAL: Denies headache and syncope. - PSYCHIATRIC: Denies recent changes in mood. Denies anxiety and depression. [facility] Past Medical History Medical History Acute bronchitis Cataract associated with other syndromes Elevated hemoglobin A1c Labral tear of hip joint Mixed hyperlipidemia New onset type 2 diabetes mellitus Paresthesia of right leg Prediabetes Screening for colon cancer Screening for malignant neoplasm of prostate Family History Family History Father Carcinoma of colon Family history of primary malignant neoplasm of liver Cerebrovascular accident Mother Acute myocardial infarction Other Diabetes mellitus Hypertension Social History Social History Smoking status: Current some day smoker Tobacco type: cigars Second hand tobacco smoke exposure: Yes Smoking end date: 09/24/81 Alcohol intake: current Drinks per week: 10 Substance use: never Substance use type: does not use Do You Feel Safe in your Home?: Yes Lack of Transportation: No Lack of Food: Never True Current Housing: I Have Housing Concerned About Future Housing: No Difficulty Paying Gas/Electric Bills: No Difficulty Paying for Meds: No Currently Unemployed: No Education: Decline to Answer Difficulty w/ Childcare or Family Care: No Living arrangements: with family Occupation/Education: occupation 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 Gender identity (if verbalized by the patient): Male Spiritual care concerns: No Meds Home Medications and Allergies Home Medications Medication Instructions Recorded Confirmed Type blood sugar diagnostic (OneTouch #100 ea 11/30/23 06/14/24 Rx Ultra Test strips) blood-glucose meter (OneTouch #1 ea 11/30/23 06/14/24 Rx Ultra2 Meter) lancets 30 gauge (OneTouch #100 ea 11/30/23 06/14/24 Rx UltraSoft 2 Lancet) losartan 100 mg tablet 100 mg PO DAILY #90 tabs 03/17/24 06/14/24 Rx metformin 500 mg tablet,extended 500 mg PO DAILY 06/14/24 06/14/24 History release 24 hr Allergies Allergy/AdvReac Type Severity Reaction Status Date / Time Penicillins Allergy Unknown Unknown Verified 05/19/24 12:36 Vital Signs Vital Signs - 24 hr 06/13/24 23:47 06/14/24 01:47 06/14/24 04:12 Temperature 97.7 F Pulse Rate 84 86 87 Respiratory Rate 15 15 15 Blood Pressure 180/92 H 112/86 146/82 H Pulse Oximetry 100 99 97 Oxygen Delivery Room Air 06/14/24 05:17 06/14/24 05:06 06/14/24 05:00 Temperature 97.4 F L Pulse Rate 80 69 Respiratory Rate 18 Blood Pressure 150/74 H Pulse Oximetry 98 Oxygen Delivery Room Air 06/14/24
[2024-06-14] MEDS: ASPIRIN 81 MG CHEWABLE TABLET PO (09:12)
--- NOTE | 2024-06-14 09:12 | PM.CNCAR ---
Assessment and Plan Assessment and plan (1) Chest pain: Code(s): R07.9 - Chest pain, unspecified Status: Acute (2) Elevated troponin: Code(s): R79.89 - Other specified abnormal findings of blood chemistry Status: Acute Plan this is a 63-year-old man with hypertension and non insulin-dependent diabetes who enters the hospital with exertional chest and left arm discomfort of recent onset which has been accelerating and culminating in unstable angina/ acute coronary syndrome. Appropriate medical therapy for this has been recommended. I will also start a beta-speedy which is of course indicated in the setting of ACS. If he is stable as he is at the moment we will plan for angiography on Sunday. If his condition destabilize is obviously that will occur urgently over the weekend. Cornel Jay MD [facility] History of Present Illness History of Present Illness Consult date/time: 06/14/24 09:12 Reason For Visit: chest pain, elevated troponin Narrative: this is a 63-year-old man without prior history of heart disease who enters the hospital with chest pain with exertion it has been going on for about a month or 2. The symptoms have been accelerating and he has decided to come to the emergency room last evening for evaluation. He states that over the course of the last 1-2 months he has noticed that with activity such as climbing an incline or hill or walking distances with a load to carry he is having some discomfort in the left axilla associated with shortness of breath. The 1st of these episodes occurred when he was attending the [facility] and noticed the symptoms and had to sit down to rest the symptoms have been very easily alleviated by resting. Yesterday he had an episode of these symptoms that occurred while climbing up the stairs to get to his bedroom and the symptoms were more persistent and did not resolve with rest very easily for that reason he decided to come to the emergency department for admit for evaluation. He his PCP has been notified of the symptoms and has actually scheduled him for a stress test which has not yet occurred. He has no other complaints his electrocardiogram shows sinus rhythm with some nonspecific T-wave abnormalities and no significant current of injury is identified. His troponin levels were normal on admission and had a slight rise to 0.1 and in this setting I am seeing him in consultation. Because of the troponin elevation a heparin drip has been ordered which has not yet been started. He is receiving aspirin, statin and appears to be very comfortable at this time. Explained to the patient and his was in the room that these are symptoms highly suggestive of unstable angina and rather than a stress test we would recommend proceeding with the angiogram. I discussed the details of coronary angiography and the risks he is agreeable to proceeding with this. The procedure is clearly not an emergency and this would be routinely planned for Sunday. Review of Systems Constitutional: Constitutional: Reports no additional constitutional complaints Eyes: Eyes: Reports no additional eye complaints ENT: Reports system reviewed and no additional complaints, except as documented Cardiovascular: Cardiovascular: Reports as per HPI and Reports chest pain Respiratory: Respiratory: Reports dyspnea on exertion Gastrointestinal: Gastrointestinal: Reports no additional gastrointestinal complaints Genitourinary: Genitourinary: Reports no additional male genitourinary complaints Musculoskeletal: Musculoskeletal: Reports no additional musculoskeletal complaints Integumentary/Breasts: Skin/Breast: Reports system reviewed and no additional complaints, except as docu Neurologic: Reports system reviewed and no additional complaints, except as documented Endocrine: Endocrine: Reports no additional endocrine complaints Hematologic/Lymphatic: Hematologic/Lymphatic: Reports
[2024-06-14] MEDS: ATORVASTATIN 40 MG TABLET 80 MG PO (09:15)
[2024-06-14] MEDS: LOSARTAN POTASSIUM 100 MG TABLET PO (09:22)
[2024-06-14 09:28] LABS: Basophils Absolute Auto 0.1 K/mm3 (0.0-0.1); Basophils Percent Auto 0.9 % (0.2-1.2); Eosinophils Absolute Auto 0.2 K/mm3 (0-0.3); Eosinophils Percent Auto 2.5 % (0-4.4); Hematocrit 42.1 % (42.0-52.0); Hemoglobin 14.9 g/dL (14.0-18.0); Immature Granulocyte Absolute 0.01 K/mm3 (0.00-0.031); Immature Granulocyte Percent A 0.2 % (0-0.5); Lymphocytes Absolute Auto 2.02 K/mm3 (0.9-3.2); Lymphocytes Percent Auto 31.4 % (18.3-44.2); Mean Corpuscular HGB Conc 35.4 g/dl (32-36); Mean Corpuscular Hemoglobin 34.5 pg (26-34); Mean Corpuscular Volume 97.5 fl (80-100); Monocytes Absolute Auto 0.7 K/mm3 (0.1-0.6); Neutrophils Absolute Auto 3.5 K/mm3 (1.3-6.7); Platelet Count Result 215 k/mm3 (150-375); Red Blood Count 4.32 M/mm3 (4.6-6.20); Red Cell Distribution Width 12.1 % (11.5-14.5); White Blood Count 6.4 K/mm3 (4.5-10.0)
[2024-06-14] MEDS: HEPARIN SODIUM 5,000 UNITS/ML VIAL 4000 UNITS IV PUSH ×2 (09:28→18:32)
[2024-06-14] MEDS: METOPROLOL TARTRATE 25 MG TABLET PO ×2 (09:29→20:59)
[2024-06-14] MEDS: HEPARIN SOD/D5W 100 UNITS/ML 25,000 UNITS/250 ML BAG 10 UNITS IV CONT (09:30)
[2024-06-14 09:36] LABS: Cholesterol 213 mg/dL (0-200); HDL Direct 42 mg/dL; Triglycerides 129 mg/dL (<150)
[2024-06-14 09:39] LABS: Prothrombin Time 13.5 Seconds (11.1-14.7)
[2024-06-14 09:44] LABS: Hemoglobin A1C 6.2 % (<5.7)
[2024-06-14 09:47] LABS: LDL Cholesterol Direct 147 mg/dL
[2024-06-14 11:58] LABS: Glucose Point of Care 176 mg/dl (65-105)
[2024-06-14 16:41] LABS: Partial Thromboplastin Time 48.6 Seconds (22.3-36.8)
[2024-06-14 16:57] LABS: Glucose Point of Care 93 mg/dl (65-105)
[2024-06-14 20:38] LABS: Glucose Point of Care 120 mg/dl (65-105)
[2024-06-15] VITALS (18 sets, daily range): BP systolic 111–146; BP diastolic 65–73; PULSE 52–78; RESP 18–20; TEMP 36.2–36.6; O2SAT 98–100
[2024-06-15 01:21] LABS: Partial Thromboplastin Time 116.1 Seconds (22.3-36.8)
[2024-06-15] MEDS: HEPARIN SOD/D5W 100 UNITS/ML 25,000 UNITS/250 ML BAG 12 UNITS IV CONT (07:00)
[2024-06-15 08:06] LABS: Glucose Point of Care 135 mg/dl (65-105)
[2024-06-15 08:32] LABS: Basophils Absolute Auto 0.1 K/mm3 (0.0-0.1); Eosinophils Absolute Auto 0.2 K/mm3 (0-0.3); Eosinophils Percent Auto 2.1 % (0-4.4); Hematocrit 43.2 % (42.0-52.0); Hemoglobin 15.4 g/dL (14.0-18.0); Immature Granulocyte Absolute 0.02 K/mm3 (0.00-0.031); Immature Granulocyte Percent A 0.3 % (0-0.5); Lymphocytes Absolute Auto 2.51 K/mm3 (0.9-3.2); Lymphocytes Percent Auto 34.6 % (18.3-44.2); Mean Corpuscular HGB Conc 35.6 g/dl (32-36); Mean Corpuscular Hemoglobin 34.8 pg (26-34); Mean Corpuscular Volume 97.7 fl (80-100); Mean Platelet Volume 9.4 fl (7.4-10.4); Monocytes Absolute Auto 0.6 K/mm3 (0.1-0.6); Monocytes Percent Auto 8.6 % (2.6-8.5); Neutrophils Absolute Auto 3.9 K/mm3 (1.3-6.7); Neutrophils Percent Auto 53.4 % (45.5-73.1); Platelet Count Result 233 k/mm3 (150-375); Red Blood Count 4.42 M/mm3 (4.6-6.20); Red Cell Distribution Width 12.2 % (11.5-14.5); White Blood Count 7.3 K/mm3 (4.5-10.0)
[2024-06-15 08:33] LABS: Alanine Aminotransferase 21 U/L (6-50); Albumin Level 4.6 g/dL (3.5-5.1); Alkaline Phosphatase 65 U/L (38-126); Anion Gap 9 mmol/L (4-12); Aspartate Amino Transferase 24 U/L (17-59); Bilirubin,Total 1.2 mg/dL (0.2-1.3); Blood Urea Nitrogen 18 mg/dL (9-20); Calcium 9.1 mg/dL (8.4-10.2); Carbon Dioxide 23 mmol/L (22-30); Chloride 101 mmol/L (98-107); Estimated CRCL calculation 70 ml/min; Estimated Glomerular Filt Rate > 60; Glucose 177 mg/dL (65-110); Magnesium 2.3 mg/dL (1.6-2.3); Potassium 4.3 mmol/L (3.4-5.0); Sodium 133 mmol/L (137-145)
[2024-06-15 08:41] LABS: Partial Thromboplastin Time 96.3 Seconds (22.3-36.8)
[2024-06-15] MEDS: ATORVASTATIN 40 MG TABLET 80 MG PO (08:44)
[2024-06-15] MEDS: ASPIRIN 81 MG CHEWABLE TABLET PO (08:44)
[2024-06-15] MEDS: METOPROLOL TARTRATE 25 MG TABLET PO ×2 (08:45→20:44)
[2024-06-15] MEDS: LOSARTAN POTASSIUM 100 MG TABLET PO (08:45)
--- NOTE | 2024-06-15 10:15 | PM.PNCARD ---
Progress Note: A&P Assessment and Plan (1) Chest pain: Code(s): R07.9 - Chest pain, unspecified Status: Acute (2) Elevated troponin: Code(s): R79.89 - Other specified abnormal findings of blood chemistry Status: Acute Plan 63-year-old man with previous history of hypertension and non insulin-dependent diabetes. He is anticipating left heart catheterization tomorrow for evaluation of recent onset of exertional angina. Will discontinue heparin prior to the catheterization and further recommendations regarding treatment will be determined by the angiographic findings Cornel Jay MD [facility] Subjective Date/time seen: date of service:06/15/24 10:15 Interval history: Follow-up visit in this 63-year-old man with: Exertional anginal-type chest pain with acceleration in days leading up to admission. He is asymptomatic in the hospital while and sedentary activity on intravenous heparin infusion. Catheterization recommended for tomorrow morning. Patient understands this and is looking forward to completing his ischemic evaluation. All questions answered regarding procedure. Exam Const: General: comfortable and no acute distress HENMT: Mouth: Yes moist mucous membranes Eyes: Sclera: sclerae normal Neck: Neck: supple and no JVD Resp: Effort & Inspection: normal respiratory effort Auscultation: clear to auscultation bilaterally Cardio: Rate: regular rate Rhythm: regular rhythm GI: GI Palp: Yes Soft to palpation Auscultation: normal bowel sounds Skin: General skin exam: normal color Neuro: Other: Alert and oriented x3 Extrem: General: normal to inspection Objective Data Vital Signs Vital Signs: Vital Signs - 24 hr 06/14/24 11:55 06/14/24 12:00 06/14/24 12:00 Temperature 36.6 C Pulse Rate 56 L 60 Respiratory Rate 12 Blood Pressure 141/75 H Pulse Oximetry 95 98 Oxygen Delivery Room Air 06/14/24 12:00 06/14/24 14:00 06/14/24 16:00 Temperature 36.6 C Pulse Rate 58 L 58 L Respiratory Rate 24 H Blood Pressure 130/68 Pulse Oximetry 99 Oxygen Delivery Room Air 06/14/24 16:00 06/14/24 18:00 06/14/24 16:00 Temperature Pulse Rate 56 L 60 Respiratory Rate Blood Pressure Pulse Oximetry Oxygen Delivery Room Air 06/14/24 19:58 06/14/24 20:59 06/14/24 20:00 Temperature 36.7 C Pulse Rate 58 L 68 60 Respiratory Rate 20 Blood Pressure 131/64 Pulse Oximetry 97 Oxygen Delivery 06/14/24 20:00 06/14/24 22:00 06/14/24 23:52 Temperature 36.6 C Pulse Rate 54 L 56 L Respiratory Rate 20 Blood Pressure 148/73 H Pulse Oximetry 100 Oxygen Delivery Room Air 06/15/24 00:00 06/15/24 00:00 06/15/24 02:00 Temperature Pulse Rate 52 L 55 L Respiratory Rate Blood Pressure Pulse Oximetry Oxygen Delivery Room Air 06/15/24 04:00 06/15/24 04:00 06/15/24 05:07 Temperature 36.4 C Pulse Rate 54 L 60 Respiratory Rate 20 Blood Pressure 132/70 Pulse Oximetry 98 Oxygen Delivery Room Air 06/15/24 06:00 06/15/24 07:56 06/15/24 08:45 Temperature 36.4 C Pulse Rate 54 L 66 66 Respiratory Rate 18 Blood Pressure 128/72 Pulse Oximetry 99 Oxygen Delivery 06/15/24 08:00 06/15/24 08:00 Temperature Pulse Rate 70 Respiratory Rate Blood Pressure Pulse Oximetry Oxygen Delivery Room Air Intake/Output Intake/Output: Intake & Output 06/12/24 06/13/24 06/14/24 06/15/24 23:59 23:59 23:59 23:59 Intake Total 1209.8 975.4 Output Total 800 600 Balance 409.8 375.4 Meds/Results Medications: Active Medications Generic Name Dose Route Start Last Admin Trade Name Freq PRN Reason Stop Dose Admin Aspirin 81 mg 06/14/24 08:00 06/15/24 08:44 Aspirin 81 Mg Chewable Tablet PO 81 mg DAILY@0800 CARL Administration Atorvastatin Calcium 80 mg 06/14/24 09:00 06/15/24 08:44 Atorvastatin 40 Mg Tablet PO 80 mg DAILY SC
[2024-06-15 11:38] LABS: Glucose Point of Care 94 mg/dl (65-105)
--- NOTE | 2024-06-15 12:05 | PM.IMPN ---
Progress Note: A&P Assessment and Plan (1) Non-STEMI (non-ST elevated myocardial infarction): Code(s): I21.4 - Non-ST elevation (NSTEMI) myocardial infarction Status: Acute (2) Diabetes mellitus: Qualifiers: Diabetes mellitus type: type 2 Diabetes mellitus nursing home insulin use: without nursing home use Diabetes mellitus complication status: without complication Qualified Code(s): E11.9 - Type 2 diabetes mellitus without complications Code(s): E11.9 - Type 2 diabetes mellitus without complications Status: Acute (3) Essential hypertension: Code(s): I10 - Essential (primary) hypertension Status: Acute Plan Patient is a 63-year-old gentleman presents emergency department with chief complaint of left arm discomfort and fluttering in his chest. Patient states symptoms ongoing for the last month report that been getting more frequent and reports that they are worse with exertion. Patient reports that he is scheduled for a stress test next week but reports that today that discomfort in his arm continued after he stops exerting himself patient reports was worse whenever he was walking around [place] the [place] and also reports that it was worse whenever he walked up the stairs. Presented to the ED for evaluation. initial EKG with ST depression in lateral leads. Initial troponin negative. Rest of the labs were unremarkable. Repeat EKG with resolution of the ST depression and up trend of troponin. troponin trend 0.016-0.05 8-0.135. Presentation suggestive of non ST elevation AL. received aspirin 325 mg and will continue on aspirin 81 mg daily. Added atorvastatin 80 mg daily check lipid profile and A1c. Cardiology has been consulted will also start anti coagulation with IV heparin. Beta-speedy added as tolerated. Resume losartan Type 2 diabetes on Jardiance Hypertension Screen for hyperlipidemia DVT prophylaxis heparin drip Code status full code Subjective Date/time seen: 06/15/24 12:05 Interval history: No new complaint. Enjoying his video game. No chest pain no shortness of breath Review of Systems Review of Systems: All systems reviewed & are unremarkable except as noted in HPI and below Exam Narrative: GENERAL: Well-appearing, well-nourished, and in no acute distress. HEAD: Normocephalic, atraumatic. EYES: PERRLA and EOMI. ENT: Nares clear, no rhinorrhea or epistaxis. Mucous membranes moist. NECK: Supple. CHEST: Clear to auscultation. No respiratory distress. HEART: Regular rate and rhythm. No murmur heard. Normal peripheral pulses. ABDOMEN: Soft, nontender, nondistended, normal active bowel sounds. EXTREMITIES: Normal range of motion. No edema. SKIN: Warm, dry, no rash. NEURO: No focal deficits. Alert and oriented x3. PSYCH: Normal mood and affect. Objective Data Vital Signs Vital Signs: Vital Signs - 24 hr 06/14/24 14:00 06/14/24 16:00 06/14/24 16:00 Temperature 97.8 F Pulse Rate 58 L 58 L 56 L Respiratory Rate 24 H Blood Pressure 130/68 Pulse Oximetry 99 Oxygen Delivery 06/14/24 18:00 06/14/24 16:00 06/14/24 19:58 Temperature 98.1 F Pulse Rate 60 58 L Respiratory Rate 20 Blood Pressure 131/64 Pulse Oximetry 97 Oxygen Delivery Room Air 06/14/24 20:59 06/14/24 20:00 06/14/24 20:00 Temperature Pulse Rate 68 60 Respiratory Rate Blood Pressure Pulse Oximetry Oxygen Delivery Room Air 06/14/24 22:00 06/14/24 23:52 06/15/24 00:00 Temperature 97.8 F Pulse Rate 54 L 56 L 52 L Respiratory Rate 20 Blood Pressure 148/73 H Pulse Oximetry 100 Oxygen Delivery 06/15/24 00:00 06/15/24 02:00 06/15/24 04:00 Temperature Pulse Rate 55 L 54 L Respiratory Rate Blood Pressure Pulse Oximetry Oxygen Delivery Room Air 06/15/24 04:00 06/15/24 05:07 06/15/24 06:00 Temperature 97.6 F Pulse Rate 60 54 L Respiratory Rate 20 Blood Pressure 132/70 Pulse Oximetry 98
[2024-06-15 13:53] LABS: Partial Thromboplastin Time 88.2 Seconds (22.3-36.8)
[2024-06-15 16:50] LABS: Glucose Point of Care 99 mg/dl (65-105)
[2024-06-15 21:06] LABS: Glucose Point of Care 107 mg/dl (65-105)
[2024-06-16] VITALS (31 sets, daily range): BP systolic 100–151; BP diastolic 58–77; PULSE 51–78; RESP 12–20; TEMP 36.1–37.1; O2SAT 96–100
--- NOTE | 2024-06-16 | ECHO_ITS ---
Patient Info Name: Erickson Hart Age: 63 years : 1960 Gender: Male Ht: 74 in Wt: 212 lbs BSA: 2.25 m2 HR: 61 bpm BP: 125 / 69 mmHg Technical Quality: Fair Exam Date: 06/16/2024 11:56 AM Exam Location: Echo Lab Patient Status: Outpatient Admit Date: 06/14/2024 Staff Ordering Physician: Stan Bautista MD Patient Care: Carina Ackerman RDCS Attending Provider: Makeda Nichole MD Exam Type: CA echo doppler color flow Study Info Indications - ACS Complete two-dimensional, color flow and Doppler transthoracic echocardiogram is performed. Summary 1. Complete two-dimensional, color flow and Doppler transthoracic echocardiogram is performed. 2. Normal left and right ventricular size and function. 3. The aortic valve is thickened and calcified. There is no aortic stenosis. There is mild aortic regurgitation. Left Ventricle Normal left ventricular chamber size. Normal LV systolic function. Right Ventricle Normal right ventricle size and systolic function. Left Atria Normal left atrial size. Right Atria Normal right atrial size. Aortic Valve Aortic valve leaflets are thickened. The right coronary cusp is calcified. The gradients across the valve do not suggest stenosis. The regurgitation visually and by pressure half time is mild. Pulmonic Valve Pulmonary valve is not well visualized. There is no stenosis or regurgitation visualized. Mitral Valve Mitral valve leaflets are thin and pliable. Trivial mitral regurgitation. Tricuspid Valve The tricuspid valve is thin and pliable. Trivial regurgitation. There is insufficient TR jet to calculate RVSP. Pericardium/Pleural Pericardium is normal in appearance with no evidence for significant pericardial effusion. Inferior Vena Cava Inferior vena cava is not well visualized. Aorta The aortic root size at the sinus of Valsalva is normal. Left Ventricular Outflow Tract Name Value Normal LVOT 2D LVOT Diameter 2.1 cm LVOT Doppler LVOT Peak Gradient 3 mmHg LVOT Mean Gradient 1 mmHg LVOT VTI 18 cm LVOT VTI/AV VTI Ratio 0.5 LVOT Stroke Volume 65 ml LVOT CO 3.4 l/min LVOT CI 1.5 l/min/m2 Pulmonic Valve Name Value Normal PV Doppler PV Peak Gradient 4 mmHg PV Regurgitation Doppler VA Peak End Diastolic Velocity 108 cm/s Mitral Valve Name Value Normal MV Doppler MV Decel Phelps 170 cm/s2 MV PHT
[2024-06-16] MEDS: HEPARIN SOD/D5W 100 UNITS/ML 25,000 UNITS/250 ML BAG 12 UNITS IV CONT ×2 (03:34→21:05)
[2024-06-16 05:19] LABS: Basophils Absolute Auto 0.1 K/mm3 (0.0-0.1); Basophils Percent Auto 0.7 % (0.2-1.2); Eosinophils Absolute Auto 0.2 K/mm3 (0-0.3); Eosinophils Percent Auto 2.2 % (0-4.4); Hematocrit 41.3 % (42.0-52.0); Hemoglobin 14.3 g/dL (14.0-18.0); Lymphocytes Absolute Auto 3.21 K/mm3 (0.9-3.2); Mean Corpuscular HGB Conc 34.6 g/dl (32-36); Mean Corpuscular Hemoglobin 33.9 pg (26-34); Mean Corpuscular Volume 97.9 fl (80-100); Mean Platelet Volume 9.4 fl (7.4-10.4); Monocytes Absolute Auto 0.9 K/mm3 (0.1-0.6); Neutrophils Absolute Auto 3.7 K/mm3 (1.3-6.7); Neutrophils Percent Auto 46.1 % (45.5-73.1); Platelet Count Result 214 k/mm3 (150-375); Red Blood Count 4.22 M/mm3 (4.6-6.20); Red Cell Distribution Width 12.2 % (11.5-14.5)
[2024-06-16 05:31] LABS: Alanine Aminotransferase 20 U/L (6-50); Albumin Level 4.2 g/dL (3.5-5.1); Alkaline Phosphatase 68 U/L (38-126); Anion Gap 8 mmol/L (4-12); Aspartate Amino Transferase 25 U/L (17-59); Bilirubin,Total 1.1 mg/dL (0.2-1.3); Blood Urea Nitrogen 19 mg/dL (9-20); Calcium 9.2 mg/dL (8.4-10.2); Carbon Dioxide 27 mmol/L (22-30); Chloride 101 mmol/L (98-107); Estimated CRCL calculation 60 ml/min; Estimated Glomerular Filt Rate 56; Glucose 109 mg/dL (65-110); Magnesium 2.2 mg/dL (1.6-2.3); Sodium 136 mmol/L (137-145)
[2024-06-16 05:34] LABS: Partial Thromboplastin Time 104.4 Seconds (22.3-36.8)
[2024-06-16 07:35] LABS: Glucose Point of Care 133 mg/dl (65-105)
[2024-06-16] MEDS: ATORVASTATIN 40 MG TABLET 80 MG PO (08:20)
[2024-06-16] MEDS: ASPIRIN 81 MG CHEWABLE TABLET PO (08:20)
[2024-06-16] MEDS: METOPROLOL TARTRATE 25 MG TABLET PO (08:20)
[2024-06-16] MEDS: LOSARTAN POTASSIUM 100 MG TABLET PO (08:20)
--- NOTE | 2024-06-16 10:06 | PM.PNCARD ---
Progress Note: A&P Assessment and Plan (1) Non-STEMI (non-ST elevated myocardial infarction): Code(s): I21.4 - Non-ST elevation (NSTEMI) myocardial infarction Status: Acute (2) Diabetes mellitus: Qualifiers: Diabetes mellitus complication status: without complication Diabetes mellitus long term acute care registered nurse insulin use: without long term acute care registered nurse use Diabetes mellitus type: type 2 Qualified Code(s): E11.9 - Type 2 diabetes mellitus without complications Code(s): E11.9 - Type 2 diabetes mellitus without complications Status: Acute Plan 63 yo man with DM type 2 and HLD presented with arm pain whose clinical presentation is consistent with NSTEMI NSTEMI - [facility] [place] today and will need TTE - currently on heparin drip - continue asa 81mg, losartan 100mg - switch lopressor to toprol 50mg daily and switch atorvastatin to rosuvastatin 40mg every evening HLD - uncontrolled without meds at home - previously did not tolerate atorvastatin; can try rosuvastatin 40mg every evening DM type 2 - glucose controlled inpatient under 200 Subjective Date/time seen: 06/16/24 10:06 Interval history: chest pain free today. no dyspnea. Review of Systems Review of Systems: All systems reviewed & are unremarkable except as noted in HPI and below Exam Const: General: comfortable HENMT: Mouth: Yes moist mucous membranes Eyes: EOM: EOMs intact bilaterally Neck: Neck: no JVD Resp: Effort & Inspection: normal respiratory effort Auscultation: clear to auscultation bilaterally Cardio: Rate: regular rate Rhythm: regular rhythm Heart sounds: no gallops, no murmurs and no rubs GI: GI Palp: Yes Soft to palpation Skin: General skin exam: normal color Neuro: Speech: normal speech Extrem: General: no edema and no pedal edema Psych: Affect: normal affect Objective Data Vital Signs Vital Signs: Vital Signs - 24 hr 06/15/24 11:37 06/15/24 16:00 06/15/24 12:00 Temperature 36.3 C L 36.6 C Pulse Rate 56 L 58 L 71 Respiratory Rate 19 18 Blood Pressure 111/65 146/73 H Pulse Oximetry 99 100 Oxygen Delivery 06/15/24 14:00 06/15/24 16:00 06/15/24 12:00 Temperature Pulse Rate 68 60 Respiratory Rate Blood Pressure Pulse Oximetry Oxygen Delivery Room Air 06/15/24 16:00 06/15/24 18:00 06/15/24 18:55 Temperature 36.2 C L Pulse Rate 78 63 Respiratory Rate 18 Blood Pressure 137/68 Pulse Oximetry 99 Oxygen Delivery Room Air 06/15/24 20:44 06/15/24 20:00 06/16/24 00:00 Temperature Pulse Rate 65 Respiratory Rate Blood Pressure Pulse Oximetry Oxygen Delivery Room Air Room Air 06/16/24 00:00 06/15/24 20:00 06/15/24 22:00 Temperature 36.6 C Pulse Rate 55 L 60 54 L Respiratory Rate 20 Blood Pressure 130/68 Pulse Oximetry 100 Oxygen Delivery 06/16/24 00:00 06/16/24 02:00 06/16/24 03:52 Temperature 36.5 C Pulse Rate 53 L 51 L 53 L Respiratory Rate 18 Blood Pressure 125/62 Pulse Oximetry 100 Oxygen Delivery 06/16/24 04:00 06/16/24 04:00 06/16/24 06:00 Temperature Pulse Rate 51 L 51 L Respiratory Rate Blood Pressure Pulse Oximetry Oxygen Delivery Room Air 06/16/24 07:40 06/16/24 08:20 06/16/24 08:00 Temperature 36.5 C Pulse Rate 78 61 Respiratory Rate 18 Blood Pressure 125/69 Pulse Oximetry 100 Oxygen Delivery Room Air 06/16/24 08:00 06/16/24 10:00 Temperature Pulse Rate 63 53 L Respiratory Rate Blood Pressure Pulse Oximetry Oxygen Delivery Intake/Output Intake/Output: Intake & Output 06/13/24 06/14/24 06/15/24 06/16/24 23:59 23:59 23:59 23:59 Intake Total 1209.8 1514.2 737.6 Output Total 800 2350 850 Balance 409.8 -835.8 -112.4 Meds/Results Medications: Active Medications Generic Name Dose Route Start Last Admin Trade Name Freq PRN Reason Stop Dose Admin Aspirin 81 mg 06/14/24 08:00 06/16/24 08:20 Aspirin 81 Mg Chewable T
--- NOTE | 2024-06-16 10:50 | WPDMODSED ---
Moderate Sedation Note-Pt Data Patient Data Diagnosis: NSTEMI Present Complaint: chest pain Procedure to be performed/Plan: [facility] Allergies Allergy/AdvReac Type Severity Reaction Status Date / Time Penicillins Allergy Unknown Unknown Verified 05/19/24 12:36 Home Medications Medication Instructions Recorded Confirmed Type blood sugar diagnostic (OneTouch #100 ea 11/30/23 06/14/24 Rx Ultra Test strips) blood-glucose meter (OneTouch #1 ea 11/30/23 06/14/24 Rx Ultra2 Meter) lancets 30 gauge (OneTouch #100 ea 11/30/23 06/14/24 Rx UltraSoft 2 Lancet) losartan 100 mg tablet 100 mg PO DAILY #90 tabs 03/17/24 06/14/24 Rx metformin 500 mg tablet,extended 500 mg PO DAILY 06/14/24 06/14/24 History release 24 hr Current Medications: Active Medications Aspirin (Aspirin 81 Mg Chewable Tablet) 81 mg PO DAILY@0800 [facility] Last Admin: 06/16/24 08:20 Dose: 81 mg Dextrose (Dextrose 50% 25 Gm/50 Ml Syringe) 12.5 gm IV PUSH PRN PRN; Protocol PRN Reason: Hypoglycemia Glucagon (Glucagon For Inj 1 Mg Vial) 1 mg IM PRN PRN; Protocol PRN Reason: Hypoglycemia Glucose (Glucose Oral Gel 15 Gm Of Glucse In 37.5 Gm Tube) 15 gm PO PRN PRN; Protocol PRN Reason: Hypoglycemia Heparin Sodium (Porcine) (Heparin Sodium 5,000 Units/Ml Vial) 4,000 units IV PUSH PRN PRN PRN Reason: aPTT less than 55 seconds Last Admin: 06/14/24 18:32 Dose: 4,000 units Heparin Sodium (Porcine) (Heparin Sodium 5,000 Units/Ml Vial) 4,000 units IV PUSH PRN PRN PRN Reason: aPTT 55 - 70 seconds Heparin Sodium/Dextrose (Heparin Sodium/D5w 100 Units/Ml) 25,000 units in 250 mls @ 12 mls/hr IV CONT .[id number] [facility]; Protocol Last Titration: 06/16/24 05:38 Dose: 1,200 units/hr, 12 mls/hr Dextrose (Dextrose 5% 1,000 Ml) 1,000 mls @ 100 mls/hr IVPB PRN PRN; Protocol PRN Reason: Hypoglycemia Insulin Aspart (Insulin Aspart (*Bkc) 100 Units/Ml) 2 - 5 units SUB-Q TIDWM CARL; Protocol Last Admin: 06/16/24 08:19 Dose: Not Given Losartan Potassium (Losartan Potassium 100 Mg Tablet) 100 mg PO DAILY CARL Last Admin: 06/16/24 08:20 Dose: 100 mg Metoprolol Succinate (Metoprolol Succinate Ext Rel 50 Mg Tabcr) 50 mg PO QAM CARL Morphine Sulfate (Morphine Sulfate (*Crx) 2 Mg/Ml Inj) 2 mg IV PUSH Q4H PRN PRN Reason: Pain Rated 7-10 Nitroglycerin (Nitroglycerin Sl 0.4 Mg Tablet) 0.4 mg SUBLINGUAL Q5MIN PRN PRN Reason: Chest Pain Ondansetron HCl (Ondansetron Inj 4 Mg/2 Ml Vial) 4 mg IV PUSH Q4H PRN PRN Reason: Nausea Perflutren Lipid Microsphere (Perflutren Lipid Microspheres 1.5 Ml Vial Diluted To 10 Ml Total Volume) 0 ml IV PUSH ONCE PRN; Protocol PRN Reason: adequate visualization Stop: 06/19/24 09:41 Rosuvastatin Calcium (Rosuvastatin 20 Mg Tablet) 40 mg PO QAM [facility] Sedation/Anesthesia: No previous sedation/anesthesia problems (including family history). [facility] Past Medical History Medical History (Updated 06/16/24 @ 10:13 by Stan Bautista MD) Acute bronchitis Cataract associated with other syndromes Elevated hemoglobin A1c Labral tear of hip joint Mixed hyperlipidemia New onset type 2 diabetes mellitus Paresthesia of right leg Prediabetes Screening for colon cancer Screening for malignant neoplasm of prostate Family History Family History Father Carcinoma of colon Family history of primary malignant neoplasm of liver Cerebrovascular accident Mother Acute myocardial infarction Other Diabetes mellitus Hypertension Social History Social History Smoking status: Current some day smoker Tobacco type: cigars Second hand tobacco smoke exposure: Yes Smoking end date: 09/24/81 Alcohol intake: current Drinks per week: 10 Substance use: never Substance use type: does not use Do You Feel Safe in your Home?: Yes Lack of Transportation: No Lack of Food: Never True Curr
--- NOTE | 2024-06-16 11:03 | WPDMODSED ---
Moderate Sedation Note-Pt Data Patient Data Diagnosis: NSTEMI Present Complaint: Chest P Allergies Allergy/AdvReac Type Severity Reaction Status Date / Time Penicillins Allergy Unknown Unknown Verified 05/19/24 12:36 Home Medications Medication Instructions Recorded Confirmed Type blood sugar diagnostic (OneTouch #100 ea 11/30/23 06/14/24 Rx Ultra Test strips) blood-glucose meter (OneTouch #1 ea 11/30/23 06/14/24 Rx Ultra2 Meter) lancets 30 gauge (OneTouch #100 ea 11/30/23 06/14/24 Rx UltraSoft 2 Lancet) losartan 100 mg tablet 100 mg PO DAILY #90 tabs 03/17/24 06/14/24 Rx metformin 500 mg tablet,extended 500 mg PO DAILY 06/14/24 06/14/24 History release 24 hr Current Medications: Active Medications Aspirin (Aspirin 81 Mg Chewable Tablet) 81 mg PO DAILY@0800 [facility] Last Admin: 06/16/24 08:20 Dose: 81 mg Dextrose (Dextrose 50% 25 Gm/50 Ml Syringe) 12.5 gm IV PUSH PRN PRN; Protocol PRN Reason: Hypoglycemia Glucagon (Glucagon For Inj 1 Mg Vial) 1 mg IM PRN PRN; Protocol PRN Reason: Hypoglycemia Glucose (Glucose Oral Gel 15 Gm Of Glucse In 37.5 Gm Tube) 15 gm PO PRN PRN; Protocol PRN Reason: Hypoglycemia Heparin Sodium (Porcine) (Heparin Sodium 5,000 Units/Ml Vial) 4,000 units IV PUSH PRN PRN PRN Reason: aPTT less than 55 seconds Last Admin: 06/14/24 18:32 Dose: 4,000 units Heparin Sodium (Porcine) (Heparin Sodium 5,000 Units/Ml Vial) 4,000 units IV PUSH PRN PRN PRN Reason: aPTT 55 - 70 seconds Heparin Sodium/Dextrose (Heparin Sodium/D5w 100 Units/Ml) 25,000 units in 250 mls @ 12 mls/hr IV CONT .[id number] [facility]; Protocol Last Titration: 06/16/24 05:38 Dose: 1,200 units/hr, 12 mls/hr Dextrose (Dextrose 5% 1,000 Ml) 1,000 mls @ 100 mls/hr IVPB PRN PRN; Protocol PRN Reason: Hypoglycemia Insulin Aspart (Insulin Aspart (*Bkc) 100 Units/Ml) 2 - 5 units SUB-Q TIDWM [facility]; Protocol Last Admin: 06/16/24 08:19 Dose: Not Given Losartan Potassium (Losartan Potassium 100 Mg Tablet) 100 mg PO DAILY [facility] Last Admin: 06/16/24 08:20 Dose: 100 mg Metoprolol Succinate (Metoprolol Succinate Ext Rel 50 Mg Tabcr) 50 mg PO QAM [facility] Morphine Sulfate (Morphine Sulfate (*Crx) 2 Mg/Ml Inj) 2 mg IV PUSH Q4H PRN PRN Reason: Pain Rated 7-10 Nitroglycerin (Nitroglycerin Sl 0.4 Mg Tablet) 0.4 mg SUBLINGUAL Q5MIN PRN PRN Reason: Chest Pain Ondansetron HCl (Ondansetron Inj 4 Mg/2 Ml Vial) 4 mg IV PUSH Q4H PRN PRN Reason: Nausea Perflutren Lipid Microsphere (Perflutren Lipid Microspheres 1.5 Ml Vial Diluted To 10 Ml Total Volume) 0 ml IV PUSH ONCE PRN; Protocol PRN Reason: adequate visualization Stop: 06/19/24 09:41 Rosuvastatin Calcium (Rosuvastatin 20 Mg Tablet) 40 mg PO QAM [facility] Sedation/Anesthesia: No previous sedation/anesthesia problems (including family history). [facility] Past Medical History Medical History (Updated 06/16/24 @ 10:13 by Stan Bautista MD) Acute bronchitis Cataract associated with other syndromes Elevated hemoglobin A1c Labral tear of hip joint Mixed hyperlipidemia New onset type 2 diabetes mellitus Paresthesia of right leg Prediabetes Screening for colon cancer Screening for malignant neoplasm of prostate Family History Family History Father Carcinoma of colon Family history of primary malignant neoplasm of liver Cerebrovascular accident Mother Acute myocardial infarction Other Diabetes mellitus Hypertension Social History Social History Smoking status: Current some day smoker Tobacco type: cigars Second hand tobacco smoke exposure: Yes Smoking end date: 09/24/81 Alcohol intake: current Drinks per week: 10 Substance use: never Substance use type: does not use Do You Feel Safe in your Home?: Yes Lack of Transportation: No Lack of Food: Never True Current Housing: I Have Housing Concerned Abo
--- NOTE | 2024-06-16 11:06 | WPDCARDPROC ---
Cardiac Cath Procedure Note Date of procedure:: 06/16/24 Performing physician:: CATHETERIZATION LABORATORY REPORT Procedure Date: 06/16/2024 Referring Physician: Dr. Candelario Anesthesia: Versed and Fentanyl were ordered and given in my presence at 1414, procedure ended at 1424. Supervision of nurse, Muna Kinney monitored moderate sedation with Versed and Fentanyl was provided for 10 minutes. Pre-op Diagnosis: NSTEMI Post-op Diagnosis: NSTEMI Procedure(s): Left heart catheterization with coronary angiography Access Site: Right radial artery; TR band for hemostasis Brief History and Clinical Indications: All risks, benefits and alternatives to left heart catheterization with or without percutaneous coronary intervention was discussed at length with the patient. Risk of complications including but not limited to bleeding, infection, arrhythmia, stroke, worsening kidney function, blood loss, groin hematoma, limb loss, emergency coronary artery bypass grafting, and even were discussed with the patient and all questions were answered. The patient understood and wished to proceed. Time out called, patient name, date of , medical record number, allergies, procedure performed, identify Rooter Operator, patient and staff member concurred with accurate data, procedure carried on. Findings: LEFT HEART CATHETERIZATION FINDINGS: 1. Left main: The left main coronary artery is widely patent without any significant obstructive disease. 2. Left anterior descending: The LAD has a high grade stenosis of 90% in the proximal vessel involving the first diagonal (1, 1, 0). The remainder of the vessel has luminal irregularities. 3. Left circumflex: The left circumflex artery gives off 2 main OM branches. Right before the bifurcation of to the OM1 and OM2 branches, there is a 70% stenosis. The remainder of the marginal branches have mild luminal irregularities without any significant obstructive angiographic disease. 4. Right coronary artery: The RCA is subtotaled at the ostium with left to right collaterals 5. Left ventricle: A. End-diastolic pressure 14 mmHg. B. LV gram deferred. C. No significant gradient across aortic valve on catheter pullback. Description of Procedure: Informed consent signed and placed in the chart. Patient transferred to environmental laboratory technician room. Prepped and draped in usual sterile fashion. 2% lidocaine injected subcutaneously in right wrist area. 22-gauge venipuncture catheter used to access the right radial artery with the Seldinger technique. 6-FR slender sheath placed in right radial artery. Radial cocktail consisting of nitroglycerin 200mcg, verapamil 2.5mg, and heparin 5000U was given. A radial TIG diagnostic catheter was used to engaged the LMCA and RCA as well as obtaining an LVEDP. Multiple orthogonal angiogram obtained and reviewed Assessment: Multivessel CAD Post Operative Condition: Stable No significant blood loss Disposition: Transfer to [facility] for CABG eval Plan: Can resume heparin drip tonight (7pm) without bolus as troponin has not peaked Continue toprol and asa Transfer to [facility] for CABG eval Stan Bautista Interventional Cardiology
[2024-06-16 11:20] LABS: Glucose Point of Care 114 mg/dl (65-105)
--- NOTE | 2024-06-16 11:31 | PM.IMPN ---
Progress Note: A&P Assessment and Plan (1) Non-STEMI (non-ST elevated myocardial infarction): Code(s): I21.4 - Non-ST elevation (NSTEMI) myocardial infarction Status: Acute (2) Diabetes mellitus: Qualifiers: Diabetes mellitus type: type 2 Diabetes mellitus skilled nursing insulin use: without tank terminal gauger use Diabetes mellitus complication status: without complication Qualified Code(s): E11.9 - Type 2 diabetes mellitus without complications Code(s): E11.9 - Type 2 diabetes mellitus without complications Status: Acute (3) Essential hypertension: Code(s): I10 - Essential (primary) hypertension Status: Acute Plan Patient is a 63-year-old gentleman presents emergency department with chief complaint of left arm discomfort and fluttering in his chest. Patient states symptoms ongoing for the last month report that been getting more frequent and reports that they are worse with exertion. Patient reports that he is scheduled for a stress test next week but reports that today that discomfort in his arm continued after he stops exerting himself patient reports was worse whenever he was walking around [place] the [place] and also reports that it was worse whenever he walked up the stairs. Presented to the ED for evaluation. initial EKG with ST depression in lateral leads. Initial troponin negative. Rest of the labs were unremarkable. Repeat EKG with resolution of the ST depression and up trend of troponin. troponin trend 0.016-0.05 8-0.135. Presentation suggestive of non ST elevation HI. received aspirin 325 mg and will continue on aspirin 81 mg daily. Added atorvastatin 80 mg daily check lipid profile and A1c. Cardiology has been consulted will also start anti coagulation with IV heparin. Beta-speedy added as tolerated. Resume losartan Type 2 diabetes on Jardiance Hypertension Screen for hyperlipidemia DVT prophylaxis heparin drip Code status full code Subjective Date/time seen: 06/16/24 11:31 Interval history: no overnight events no chest pain going for catheterization today. Review of Systems Review of Systems: All systems reviewed & are unremarkable except as noted in HPI and below Exam Narrative: GENERAL: Well-appearing, well-nourished, and in no acute distress. HEAD: Normocephalic, atraumatic. EYES: PERRLA and EOMI. ENT: Nares clear, no rhinorrhea or epistaxis. Mucous membranes moist. NECK: Supple. CHEST: Clear to auscultation. No respiratory distress. HEART: Regular rate and rhythm. No murmur heard. Normal peripheral pulses. ABDOMEN: Soft, nontender, nondistended, normal active bowel sounds. EXTREMITIES: Normal range of motion. No edema. SKIN: Warm, dry, no rash. NEURO: No focal deficits. Alert and oriented x3. PSYCH: Normal mood and affect. Objective Data Vital Signs Vital Signs: Vital Signs - 24 hr 06/15/24 11:37 06/15/24 16:00 06/15/24 12:00 Temperature 97.3 F L 98 F Pulse Rate 56 L 58 L 71 Respiratory Rate 19 18 Blood Pressure 111/65 146/73 H Pulse Oximetry 99 100 Oxygen Delivery 06/15/24 14:00 06/15/24 16:00 06/15/24 12:00 Temperature Pulse Rate 68 60 Respiratory Rate Blood Pressure Pulse Oximetry Oxygen Delivery Room Air 06/15/24 16:00 06/15/24 18:00 06/15/24 18:55 Temperature 97.1 F L Pulse Rate 78 63 Respiratory Rate 18 Blood Pressure 137/68 Pulse Oximetry 99 Oxygen Delivery Room Air 06/15/24 20:44 06/15/24 20:00 06/16/24 00:00 Temperature Pulse Rate 65 Respiratory Rate Blood Pressure Pulse Oximetry Oxygen Delivery Room Air Room Air 06/16/24 00:00 06/15/24 20:00 06/15/24 22:00 Temperature 97.8 F Pulse Rate 55 L 60 54 L Respiratory Rate 20 Blood Pressure 130/68 Pulse Oximetry 100 Oxygen Delivery 06/16/24 00:00 06/16/24 02:00 06/16/24 03:52 Temperature 97.7 F Pulse Rate 53 L 51 L 53 L Respiratory Rate 18 Blood Pressure 125/62 Pulse Oximetry
--- NOTE | 2024-06-16 13:50 | PC.NURSE ---
Pt to cath lab radiological technologist via stretcher for cardiac catheterization. Heparin drip stopped by cath lab radiological technologist RN.
--- NOTE | 2024-06-16 18:20 | PC.NURSE ---
Pt returned from lab engineer via wheelchair. No issues noted. at bedside
[2024-06-16] MEDS: SODIUM CHLORIDE 0.9% IV 1,000 ML 125 ML IV CONT (18:30)
[2024-06-16 21:40] LABS: Glucose Point of Care 134 mg/dl (65-105)
[2024-06-17] VITALS (17 sets, daily range): BP systolic 118–172; BP diastolic 58–82; PULSE 55–78; RESP 12–20; TEMP 36–36.9; O2SAT 97–100
--- NOTE | 2024-06-17 01:59 | ECG_ITS ---
Test Date: 2024-06-17 02:14:50 Measurements Intervals [place] Rate: 73 P: 103 MN: 187 QRS: 130 QRSD: 115 T: 164 QT: 393 QTc: 435 Interpretive Statements SINUS RHYTHM ARM LEADS REVERSED INTRAVENTRICULAR CONDUCTION DELAY ST-T WAVE ABNORMALITY IN ANTERAOLAT/INF LEADS- CONSIDER ISCHEMIA BASELINE ARTIFACT- II, III, AVF, V3 ABNORMAL ECG Compared to ECG 06/14/2024 02:52:52 ST-T WAVE ABNORMALITY, CONSIDER ISCHEMIA NOW PRESENT Electronically Signed On 06-17-2024 06:40:11 CDT by Osmani Campos D.O.
[2024-06-17] MEDS: NITROGLYCERIN SL 0.4 MG TABLET SUBLINGUAL ×2 (02:10→05:45)
[2024-06-17] MEDS: MORPHINE SULFATE (*CRX) 2 MG/ML INJ 1 MG IV PUSH (02:15)
--- NOTE | 2024-06-17 02:39 | ECG_ITS ---
Test Date: 2024-06-17 02:41:55 Measurements Intervals [place] Rate: 60 P: 77 AR: 187 QRS: 40 QRSD: 115 T: 18 QT: 426 QTc: 429 Interpretive Statements SINUS RHYTHM INTRAVENTRICULAR CONDUCTION DELAY BORDERLINE ST-T WAVE ABNORMALITY- INF/LAT LEADS BORDERLINE ECG Compared to ECG 06/17/2024 02:14:50 POSSIBLE ISCHEMIA NOW RESOLVED Electronically Signed On 06-17-2024 06:41:02 CDT by Osmani Campos D.O.
[2024-06-17 05:17] LABS: Partial Thromboplastin Time 62.1 Seconds (22.3-36.8)
[2024-06-17] MEDS: HEPARIN SODIUM 5,000 UNITS/ML VIAL 4000 UNITS IV PUSH (05:27)
[2024-06-17] MEDS: HEPARIN SOD/D5W 100 UNITS/ML 25,000 UNITS/250 ML BAG 14 UNITS IV CONT (06:29)
[2024-06-17 07:43] LABS: Glucose Point of Care 110 mg/dl (65-105)
[2024-06-17] MEDS: ASPIRIN 81 MG CHEWABLE TABLET PO (08:06)
[2024-06-17] MEDS: METOPROLOL SUCCINATE EXT REL 50 MG TABCR PO (08:06)
[2024-06-17] MEDS: LOSARTAN POTASSIUM 100 MG TABLET PO (08:06)
[2024-06-17] MEDS: ROSUVASTATIN 20 MG TABLET 40 MG PO (08:06)
[2024-06-17 11:56] LABS: Glucose Point of Care 145 mg/dl (65-105)
--- NOTE | 2024-06-17 12:01 | PC.NURSE ---
Pt transferred to [facility] Room 926 bed 1 via [facility] with Heparin drip infusing. , Narcisa, at bedside and aware of transfer. GINGER Moeller at receiving hospital called and updated with pt leaving and rate of infusion. All personal belongings transferred with pt's .
--- NOTE | 2024-06-17 12:04 | PM.TDS ---
Transfer Discharge Sum: Prov Provider Date of admission: 06/14/24 03:50 Primary care physician: Zain Cabrera MD Admitting clinician: Makeda Nichole MD Consults: 06/14/24 03:52 Consult to Physician Routine Comment: Consulting Provider: Cornel Jay call person/MD group to consult: cardiology Reason for consultation: Chest pain elevated troponin Has provider been notified: Yes DS: Admitting Diagnosis Discharge Date 06/16/2024 Admitting Diagnosis chest pain DS: Discharge Diagnosis Discharge Diagnosis (1) Non-STEMI (non-ST elevated myocardial infarction): Code(s): I21.4 - Non-ST elevation (NSTEMI) myocardial infarction Status: Acute (2) Diabetes mellitus: Qualifiers: Diabetes mellitus complication status: without complication Diabetes mellitus fci insulin use: without intermediate project manager use Diabetes mellitus type: type 2 Qualified Code(s): E11.9 - Type 2 diabetes mellitus without complications Code(s): E11.9 - Type 2 diabetes mellitus without complications Status: Acute (3) Essential hypertension: Code(s): I10 - Essential (primary) hypertension Status: Acute Transfer Discharge Sum: Med Medications Active and Home Medications: Home Medications blood sugar diagnostic (OneTouch Ultra Test strips) #100 ea 11/30/23 [Rx Confirmed 06/14/24] blood-glucose meter ([employer]comTouch Ultra2 Meter) #1 ea 11/30/23 [Rx Confirmed 06/14/24] lancets 30 gauge (OneTouch UltraSoft 2 Lancet) #100 ea 11/30/23 [Rx Confirmed 06/14/24] losartan 100 mg tablet 100 mg PO DAILY #90 tabs 03/17/24 [Rx Confirmed 06/14/24] metformin 500 mg tablet,extended release 24 hr 500 mg PO DAILY 06/14/24 [History Confirmed 06/14/24] Active Medications Aspirin (Aspirin 81 Mg Chewable Tablet) 81 mg PO DAILY@0800 [facility] Last Admin: 06/16/24 08:20 Dose: 81 mg Dextrose (Dextrose 50% 25 Gm/50 Ml Syringe) 12.5 gm IV PUSH PRN PRN; Protocol PRN Reason: Hypoglycemia Glucagon (Glucagon For Inj 1 Mg Vial) 1 mg IM PRN PRN; Protocol PRN Reason: Hypoglycemia Glucose (Glucose Oral Gel 15 Gm Of Glucse In 37.5 Gm Tube) 15 gm PO PRN PRN; Protocol PRN Reason: Hypoglycemia Heparin Sodium (Porcine) (Heparin Sodium 5,000 Units/Ml Vial) 4,000 units IV PUSH PRN PRN PRN Reason: aPTT less than 55 seconds Last Admin: 06/14/24 18:32 Dose: 4,000 units Heparin Sodium (Porcine) (Heparin Sodium 5,000 Units/Ml Vial) 4,000 units IV PUSH PRN PRN PRN Reason: aPTT 55 - 70 seconds Heparin Sodium/Dextrose (Heparin Sodium/D5w 100 Units/Ml) 25,000 units in 250 mls @ 0 mls/hr IV CONT .Q0M [facility]; Protocol Last Titration: 06/16/24 13:50 Dose: 0 units/hr, 0 mls/hr Dextrose (Dextrose 5% 1,000 Ml) 1,000 mls @ 100 mls/hr IVPB PRN PRN; Protocol PRN Reason: Hypoglycemia Sodium Chloride (Normal Saline Iv) 1,000 mls @ 125 mls/hr IV CONT .Q8H ONE Stop: 06/16/24 22:51 Insulin Aspart (Insulin Aspart (*Bkc) 100 Units/Ml) 2 - 5 units SUB-Q TIDWM [facility]; Protocol Last Admin: 06/16/24 11:27 Dose: Not Given Losartan Potassium (Losartan Potassium 100 Mg Tablet) 100 mg PO DAILY [facility] Last Admin: 06/16/24 08:20 Dose: 100 mg Metoprolol Succinate (Metoprolol Succinate Ext Rel 50 Mg Tabcr) 50 mg PO QAM [facility] Morphine Sulfate (Morphine Sulfate (*Crx) 2 Mg/Ml Inj) 2 mg IV PUSH Q4H PRN PRN Reason: Pain Rated 7-10 Nitroglycerin (Nitroglycerin Sl 0.4 Mg Tablet) 0.4 mg SUBLINGUAL Q5MIN PRN PRN Reason: Chest Pain Ondansetron HCl (Ondansetron Inj 4 Mg/2 Ml Vial) 4 mg IV PUSH Q4H PRN PRN Reason: Nausea Perflutren Lipid Microsphere (Perflutren Lipid Microspheres 1.5 Ml Vial Diluted To 10 Ml Total Volume) 0 ml IV PUSH ONCE PRN; Protocol PRN Reason: adequate visualization Stop: 06/19/24 09:41 Rosuvastatin Calcium (Rosuvastatin 20 Mg Tablet) 40 mg PO QAM [facility] Transfer Discharge Sum: Hosp Hospital Course Hospital course: Erickson Hart II is a 63 year old male who presents to the emergency department with chief complaint of
== END 2024-06-17 12:02 | disposition short-term general hospital (02) | DRG 282 ==
LOC: ANHED 06-14 03:54 → ANHIMU 06-14 04:41
PROVIDERS: Internal Medicine; Specialist; Admitting Provider Internal Medicine; Emergency Provider Emergency Medicine; PCP Family Medicine; Visit Provider Internal Medicine
PROC: 4A023N7 Measurement of Cardiac Sampling and Pressure, Left Heart, Percutaneous Approach (ICD-10-PCS; CPT 93452; principal; 2024-06-16 13:00)
DX: I21.4 Non-ST elevation (NSTEMI) myocardial infarction (principal); E11.9 Type 2 diabetes mellitus without complications; I10 Essential (primary) hypertension; E78.2 Mixed hyperlipidemia; F17.290 Nicotine dependence, other tobacco product, uncomplicated
CPT/HCPCS: 36415; 71045; 80053; 80061; 82607; 82746; 82948; 83036; 83540; 83550; 83690; 83735; 84484; 85025; 85610; 85730; 93005; 93306; 93458; 96365; 96366; 99285; A9270; C1769; C1887; C1894; G0378; J1644; J2250; J2270; J2305; J3010; J7030

== ENCOUNTER 2024-08-28 13:30 | Outpatient (RCR) | payer OTHER, SELFPAY ==
[2024-07-31 10:47] VITALS: BMI 27.1
[2024-08-28 13:35] VITALS: BMI 27.1
== END 2024-10-20 09:47 | disposition home or self-care (01) ==
LOC: ANHDMC 13:30
PROVIDERS: PCP Family Medicine; Visit Provider Nurse Practitioner Family
DX: E11.9 Type 2 diabetes mellitus without complications (principal); Z98.890 Other specified postprocedural states; Z71.3 Dietary counseling and surveillance
CPT/HCPCS: 97802; 97803

== ENCOUNTER 2024-09-05 10:29 | Outpatient (CLI) | payer OTHER, SELFPAY ==
[2024-09-05 11:29] LABS: Hematocrit 39.3 % (42.0-52.0); Hemoglobin 13.2 g/dL (14.0-18.0); Mean Corpuscular HGB Conc 33.6 g/dl (32-36); Mean Corpuscular Hemoglobin 32.1 pg (26-34); Mean Corpuscular Volume 95.6 fl (80-100); Mean Platelet Volume 9.5 fl (7.4-10.4); Platelet Count Result 247 k/mm3 (150-375); Red Blood Count 4.11 M/mm3 (4.6-6.20); Red Cell Distribution Width 12.9 % (11.5-14.5); White Blood Count 6.4 K/mm3 (4.5-10.0)
[2024-09-05 11:44] LABS: Alanine Aminotransferase 24 U/L (6-50); Albumin Level 4.5 g/dL (3.5-5.1); Alkaline Phosphatase 65 U/L (38-126); Anion Gap 4 mmol/L (4-12); Aspartate Amino Transferase 30 U/L (17-59); Bilirubin,Total 0.9 mg/dL (0.2-1.3); Blood Urea Nitrogen 23 mg/dL (9-20); Calcium 9.5 mg/dL (8.4-10.2); Carbon Dioxide 30 mmol/L (22-30); Chloride 103 mmol/L (98-107); Estimated Glomerular Filt Rate 51; Glucose 113 mg/dL (65-110); Potassium 5.1 mmol/L (3.4-5.0); Sodium 137 mmol/L (137-145)
[2024-09-05 12:14] LABS: Prostate Specific Antigen 1.3 ng/mL (< OR = 4.0)
[2024-09-05 12:16] LABS: Vitamin D 25 Hydroxy 38.8 ng/mL
== END 2024-09-05 10:30 | disposition home or self-care (01) ==
PROVIDERS: PCP Family Medicine; Visit Provider Nurse Practitioner Family
DX: N40.0 Benign prostatic hyperplasia without lower urinary tract symptoms (principal); R35.1 Nocturia; I25.10 Atherosclerotic heart disease of native coronary artery without angina pectoris; E78.2 Mixed hyperlipidemia; E55.9 Vitamin D deficiency, unspecified; Z13.29 Encounter for screening for other suspected endocrine disorder; R53.83 Other fatigue; E78.5 Hyperlipidemia, unspecified
CPT/HCPCS: 36415; 80053; 82306; 84153; 84443; 85027

== ENCOUNTER 2024-10-14 08:26 | Outpatient (CLI) | payer OTHER, SELFPAY ==
[2024-10-14 08:50] LABS: Hematocrit 39.7 % (42.0-52.0); Hemoglobin 13.5 g/dL (14.0-18.0); Mean Corpuscular Hemoglobin 31.8 pg (26-34); Mean Corpuscular Volume 93.6 fl (80-100); Mean Platelet Volume 8.9 fl (7.4-10.4); Platelet Count Result 226 k/mm3 (150-375); Red Blood Count 4.24 M/mm3 (4.6-6.20); Red Cell Distribution Width 13.4 % (11.5-14.5); White Blood Count 7.9 K/mm3 (4.5-10.0)
[2024-10-14 09:38] LABS: Anion Gap 11 mmol/L (4-12); Blood Urea Nitrogen 26 mg/dL (9-20); Calcium 9.3 mg/dL (8.4-10.2); Carbon Dioxide 27 mmol/L (22-30); Chloride 103 mmol/L (98-107); Estimated Glomerular Filt Rate 49; Glucose 117 mg/dL (65-110); Potassium 5.1 mmol/L (3.4-5.0); Sodium 141 mmol/L (137-145)
[2024-10-14 09:39] LABS: Iron 97 ug/dL (49-181)
[2024-10-14 09:48] LABS: Percent Iron Saturation 27 % (20-50)
--- OUTSIDE RECORDS SUMMARY | 2024-10-16 16:13 | XMS_ITS | Clinical Summary ---
Author Organization [facility] Address [address] [place] [address] Care Team Providers Care Lead Miner Blasting Name Role Phone Erickson Alejandre MD Primary Care Provider Source Comments [facility] [employer],non-owned Affiliates and Associated Physician Practices is amultiple site organization consisting of ambulatory clinics and hospital sitesin [place], [place], [place] and [place]. This disclosure is being madepursuant to the Care Everywhere program and may not contain all information available regarding this patient. Last updated 18.[facility] [employer] Immunizations Name Administration Dates Next Due INFLUENZA VACCINE, QUADR. (F LUZONE; FLULAVAL; FLUARIX; AFLURIA QUADRIVALENT; 6MO+), 0.5 ML (IIV4) 07/30/2020 Social History Tobacco Use Types Packs/Day Years Used Date Smoking Tobacco: Never Assessed Sex and Gender Information Value Date Recorded Sex Assigned at Not on file Gender Identity Not on file Sexual Orientation Not on file Plan of Treatment Health Maintenance Due Date Last Done Comments COLOGUARD (AGES 45-75) - COL ON CA SCREENING 1959 COLON MONITORING 1959 COLONOSCOPY - COLON CA SCREENING 1959 CT COLONOGRAPHY - COLON CA SCREENING 1959 Colorectal Cancer Screening 1959 FIT - COLON CA SCREENING 1959 FLEX SIG - COLON CA SCREENING 1959 LIPID TESTING 1959 HIV SCREENING 12/28/1974 HEPATITIS C SCREENING 12/24/1977 DTAP/TDAP/TD VACCINES (1 - Tdap) 12/28/1978 PNEUMOCOCCAL VACCINE 50+ (1 of 1 - PCV) 12/28/2009 ZOSTER VACCINE (1 of 2) 12/28/2009 COVID-19 VACCINE ( - 2023-2 5 season) 2024 INFLUENZA VACCINE (#1) 2024 07/30/2020 DEPRESSION SCREENING 09/24/2024 Respiratory Syncytial Virus (RSV) Vaccine Pt: or over 60 yrs (1 - 1-dose 75+ series) 12/28/2034 HEPATITIS B VACCINE Aged Out No longe r eligible based on patient's age to complete this topic HIB VACCINE Aged Out No longer eligi ble based on patient's age to complete this topic HPV VACCINE Aged Out No longer eligi ble based on patient's age to complete this topic MENINGOCOCCAL (Group B) VACCINE Aged Out No longer eligible based on patient's age to complete this topic MENINGOCOCCAL VACCINE Aged Out No tao myranda eligible based on patient's age to complete this topic PNEUMOCOCCAL VACCINE Aged Out No long er eligible based on patient's age to complete this topic Care Teams Lead Miner Blasting Relationship Specialty Start Date End Date Erickson Alejandre MD [address] [place] [address] PCP - General 02/14/11
--- OUTSIDE RECORDS SUMMARY | 2024-10-16 16:13 | XMS_ITS | Clinical Summary ---
Author Organization [facility] Address [address] [place] [address] Care Team Providers Care Clinical Athletic Instructor Name Role Phone Zain Cabrera MD Primary Care Provider [phone] Pantera Dewitt MD Unavailable [phone] Celine Lujan NP Unavailable [phone] Miscellaneous, Not In File Unavailable Unava ilable Allergies Active Allergy Reactions Criticality Noted Date Comments Penicillin Unknown 02/21/2023 Medications metFORMIN (FORTAMET) 500 mg 24 hr tabletIndicatio ns:type 2 diabetes mellitus Take 1 tablet (500 mg total) by mouth daily with breakfast Active traMADoL (ULTRAM) 50 mg tabletIndicatio ns:Pain Take 1 tablet (50 mg total) by mouth every 6 (six) hours as needed for pain for up to 7 days 24 tablet 4 Active Additional Information Patient not taking.Reported on 07/10/2024 acetaminophen 500 mg capsuleIndicati ons:pain/fever Take 2 capsules (1,000 mg total) by mouth every 6 (six) hours as needed for pain or headaches 4 Active senna-docusate (PERICOLACE) 8.6-50 mgIndications:c onstipation Take 1 tablet by mouth daily as needed for constipation 30 tablet 4 Active Additional Information Patient not taking.Reported on 07/10/2024 aspirin 81 mg enteric coated tabletIndicatio ns:prevention of thrombosis Take 1 tablet (81 mg total) by mouth daily 30 tablet 2 4 12/08/19 25 Active atorvastatin (LIPITOR) 40 mg tabletIndicatio ns:hyperlipidem ia Take 1 tablet (40 mg total) by mouth nightly 30 tablet 2 4 12/08/19 25 Active clopidogreL (PLAVIX) 75 mg tabletIndicatio ns:Thrombosis Prevention after PCI Take 1 tablet (75 mg total) by mouth daily 30 tablet 2 4 12/08/19 25 Active metoprolol tartrate (LOPRESSOR) 25 mg immediate release tabletIndicatio ns:coronary artery disease,hyperte nsion Take 1 tablet (25 mg total) by mouth 2 (two) times a day 60 tablet 2 4 12/08/19 25 Active Active Problems Problem Noted Date Diagnosed Date Coronary artery disease (CAD) excluded 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 stable angina pectoris 06/18/2024 Coronary artery disease invo lving kotlik coronary artery of kotlik heart with angina pectoris 06/17/2024 Hypertension 06/17/2024 Hyperlipidemia 06/17/2024 Type 2 diabetes mellitus 06/17/2024 Encounters Date Type Department Care Team Description 10/14/2024 8:00 AM TAPROOM ATTENDANT Office Visit [facility] Medical [facility] Cardiology [address] [place] [address] [address] [place] [address] Stan Bautista MD Coronary artery disease involving kotlik coronary artery of kotlik heart with angina pectoris (HCC) (Primary Dx) 09/08/2024 Telephone [facility] Medical [facility] Cardiology [address] [place] [address] [address] [place] [phone] Stan Bautista MD Med Refill 07/25/2024 9:00 AM CDT Home Care Visit [place] [address] [address] [place] [address] Tom Brower RN SN NON OASIS DISCHARGE 07/24/2024 11:30 AM CDT Office Visit [facility] Surgery [address] [facility] [address] [place] [address] Pantera Dewitt MD S/P CABG x 4 (Primary Dx) 07/18/2024 3:00 PM CDT Home Care Visit [address] [place] [address] [address] [place] [id number] Margy Ferrara RN SN HOME VISIT from Last 3 Months Surgical History Surgery Date Site/Laterality Comments APPENDECTOMY INGUINAL HERNIA REPAIR Right in KNEE ARTHROSCOPY Right SKIN CANCER EXCISION CORONARY ARTERY BYPASS GRAFT 06/19/2024 Medical History Medical History Date Comments Hypertension Hyperlipidemia Diabetes mellitus (HCC) Coronary artery disease 06/16/2024 Family History Medical History Relation Name Comments Stroke Father Diabetes Mother Hypertension Mother Relation Name Status Comments Father Mother Social History Tobacco Use Types Packs/Day Years Used Date Smoking Tobacco: Some Days Cigars Smokeless Tobacco: Never Tobacco Cessation:Ready to Q uit: Not Asked; Counseling Given: Not Answered OASIS D0700: Social Isolation Answer Da te Recorded Frequency of experiencing loneliness or isolatio n Never 07/25/2024 OASIS A1250: Transportation Answer Date Recorded Lack of Transportation (Medical) No 07/25/2024 Lack of Transportation (Non-Medical) No 07/25/2024 Patient Unable or Declines to Respond No 07/25/2024 OASIS B1300: Health Literacy Answer Maninder e Recorded Frequency of needing help to read materials from doctor or pharmacy Never 07/25/2024 [facility] Utilities Answer Date Recorded In the past 12 months has e electric, gas, oil, or water company threatened to shut off services in your home? No 06/18/2024 Social Connection and Isolat ion Panel [NHANES] Answer Date Recorded In a typical week, how many times do you talk on the phone with family, friends, or neighbors? More than three times a week 06/18/2024 How often do you get togethe r with friends or relatives? More than three times a week 06/18/2024 How often do you attend chur ch or jehovah's witness services? Never 06/18/2024 Do you belong to any clubs o r organizations such as congregation groups, unions, fraternal or athletic groups, or school groups? Yes 06/18/2024 How often do you attend meet ings of the clubs or organizations you belong to? Never 06/18/2024 Are you , , di vorced, , never , or living with a partner? 06/18/2024 AUDIT-C Answer Date Recorded Q1: How often do you have a drink containing alc ohol? 2-4 times a month 06/17/2024 Average Number of Drinks Not on file 024 Frequency of Binge Drinking Not on file 05/26 Overall Financial Resource Strain (CARDIA) Answe r Date Recorded How hard is it for you to pa y for the very basics like food, housing, medical care, and heating? Not hard at all 06/18/2024 Hunger Vital Sign Answer Date Recorded Within the past 12 months, y ou worried that your food would run out before you got the money to buy more. Never true 06/18/20 24 Within the past 12 months, t he food you bought just didn't last and you didn't have money to get more. Never true 06/18/2024 PRAPARE - Transportation Answer Date Re corded In the past 12 months, has l ack of transportation kept you from medical appointments or from getting medications? No 05/26 In the past 12 months, has l ack of transportation kept you from meetings, work, or from getting things needed for daily living? No 06/18/2024 Housing Stability Vital Sign Answer Maninder e Recorded In the last 12 months, was t here a time when you were not able to pay the mortgage or rent on time? No 06/18/2024 In the past 12 months, how m any times have you moved where you were living? 0 06/18/2024 At any time in the past 12 m [facility], were you homeless or living in a fdc (including now)? No 06/18/2024 Personal Safety Answer Date Recorded Have you ever been in or are you currently in a harmful physical or emotional relationship or is someone making you feel afraid or unsafe? Denies 06/17/2024 Sex and Gender Information Value Date Recorded Sex Assigned at Not on file Legal Sex Male 4:46 AM TAPROOM ATTENDANT Gender Identity Not on file Sexual Orientation Not on file Obstetrics History Last Filed Vital Signs Vital Sign Reading Time Taken Comments Blood Pressure 122/70 10/14/2024 8:04 AM TAPROOM ATTENDANT Pulse 65 10/14/2024 8:04 AM TAPROOM ATTENDANT Temperature 37.1 ??C (98.7 ??F) 07/25/2024 9:15 AM CD T Respiratory Rate 18 07/25/2024 9:15 AM CDT Oxygen Saturation 99% 10/14/2024 8:04 AM TAPROOM ATTENDANT Inhaled Oxygen Concentration - - Weight 94.8 kg (209 lb) 10/14/2024 8:04 AM TAPROOM ATTENDANT Height 188 cm (6' 2 ) 10/14/2024 8:04 AM TAPROOM ATTENDANT Body Mass Index 26.83 10/14/2024 8:04 AM TAPROOM ATTENDANT Plan of Treatment Health Maintenance Due Date Last Done Comments Albumin Creatinine Ratio, Urine 1959 Colon Cancer Screening-Colonoscopy 1959 Depression Screening 1959 Hemoglobin A1C 1959 Hepatitis C Screening 1959 Prostate Cancer Screening-PSA 1959 Dilated Eye Exam 1959 Foot Exam 1959 Pneumococcal vaccine <65 (1 of 2 - PCV) 12/28/1965 DTaP/Tdap/Td Vaccine (1 - Tdap) 12/28/1970 Hepatitis B Screening 12/28/1977 Regular Well Visit/Exam 18-64 12/28/1977 Zoster Vaccine (1 of 2) 12/28/2009 Influenza Vaccine (#1) 2024 , 07/30/2020, 08/09/2019 eGFR 06/30/2025 06/30/2024, 05/27, 06/22/2024, Additional history exists Lipid Panel 07/10/2025 07/10/2024 Medical Devices Implanted Type Area Hide Dropper Device Identifier Shelf Expiration Date Model / Serial / Lot [employer] Plate Bone Low Profile 4 Hole Box Sternum Ti 115.103.04 - [id number] Implanted:Qty: 1 on 06/19/2024 by Pantera Dewitt MD at [facility] [place]A: Chest Wall [employer] 115.103.04 / / [employer] Plate Bone Low Profile 6 Hole H Shape Sternum Ti 115.102.06 - [id number] Implanted:Qty: 1 on 06/19/2024 by Pantera Dewitt MD at [facility] N/A: Chest Wall [employer] 115.102.06 / / [employer] Plate Bone Low Profile 6 Hole O Concave Sternum Ti 115.604.06 - [id number] Implanted:Qty: 1 on 06/19/2024 by Pantera Dewitt MD at [facility] N/A: Chest Wall [employer] 115.604.06 / / [employer] Screw Bone Slf Drl Full Thread Locking 3.5x16mm Ti 100.035.16 - [id number] Implanted:Qty: 16 on 06/19/2024 by Pantera Dewitt MD at [facility] N/A: Chest Wall [employer] 100.035.16 / / Procedures Procedure Name Priority Date/Time Associated Diagnosis Comments POCT LIPID PANEL Routine 07/10/2024 3:56 PM CDT Hyperlipidemia associated with type 2 diabetes mellitus (HCC) EGFR Routine 06/30/2024 12:40 PM CDT from Last 3 Months or Most Recently Relevant to Health Maintenance Results * POCT lipid panel (07/10/2024 3:56 PM CDT) Cholesterol, POC 114 mg/dL HDL, POC 32 mg/dL Triglycerides, POC 147 mg/dL LDL Cholesterol POC 53 mg/dL Chol/HDL Ratio, POC 1.6 Non-HDL Cholesterol, POC 82 mg/dL Cholesterol Total, POC 114 mg/dL Capillary blood 07/10/2024 3 :56 PM CDT Celine Lujan NP POINT OF CARE TEST ORDERA BLES Final Result * (ABNORMAL) eGFR (06/30/2024 12:40 PM CDT) eGFR 51(L) >=60 mL/min/1. 73 m2 Comment: Interpretive Data Reference Interval Normal ?>/= 90 mL/min/1.73m2 Mildly decreased* ? 60 - 89 mL/min/1.73m2 Mildly to moderately decreased ?45 - 59 mL/min/1.73m2 Moderately to severely decreased ??30 - 44 mL/min/1.73m2 Severely decreased ?15 - 29 mL/min/1.73m2 Kidney Failure ?< 15 ??mL/min/1.73m2 *Relative to young adult level Estimated glomerular filtration rate is determined by the 2020 CKD-EPI equation recommended by the National Kidney Foundation (A Unifying Approach to GFR Estimation: Recommendations of the NKF-ASK Task Force on Reassessing the Inclusion of Race in Diagnosing Kidney Disease, JASN 2020). The CKD-EPI equation should not be used for patients with unstable renal function and has not been validated in children and those over 70. Current interpretive data was last reviewed 2021. Blood 06/30/2024 12:4 0 PM CDT 06/30/2024 6:16 PM CDT Pantera Dewitt MD LAB BLOOD ORDERABLES Final Res ult Performing Organization Address City/State/[facility] Co de Phone Number [facility] Department [place] [address] from Last 3 Months or Most Recently Relevant to Health Maintenance Insurance Room 21 Media OPEN ACCESS [facility] OPEN ACCESS Advance Directives For more information, please contact: [phone] * Full Code (Latest Code Status on File) Date Activated Date Inactivated Comments 06/17/2024 12:52 PM 06/23/2024 8:34 PM Care Teams Clinical Athletic Instructor Relationship Specialty Start Date End Date Zain Cabrera MD PCP - General Family Medicine 02/21/23 Pantera Dewitt MD [id number] [place] [address] Surgeon Cardiothoracic Surgery 06/23/24 Celine Lujan NP [address] [facility] [address] [place] [address] Nurse Practitioner Cardiovascular Disease 06/23/24 Miscellaneous, Not In File 06/23/24
--- OUTSIDE RECORDS SUMMARY | 2024-10-16 16:13 | XMS_ITS | Referral Summary ---
Author Organization [facility] Address [address] [place] [address] Care Team Providers Care Courtroom Deputy Name Role Phone Erickson Alejandre MD Primary Care Provider Source Comments [facility],non-owned Affiliates and Associated Physician Practices is amultiple site organization consisting of ambulatory clinics and hospital sitesin [place] and [place]. This disclosure is being madepursuant to the Care Everywhere program and may not contain all information available regarding this patient. Last updated 18.[facility] Immunizations Name Administration Dates Next Due INFLUENZA VACCINE, QUADR. (F LUZONE; FLULAVAL; FLUARIX; AFLURIA QUADRIVALENT; 6MO+), 0.5 ML (IIV4) 07/30/2020 Social History Tobacco Use Types Packs/Day Years Used Date Smoking Tobacco: Never Assessed Sex and Gender Information Value Date Recorded Sex Assigned at Not on file Gender Identity Not on file Sexual Orientation Not on file Plan of Treatment Not on file Care Teams Courtroom Deputy Relationship Specialty Start Date End Date Erickson Alejandre MD [address] [place] [address] PCP - General 02/14/11
--- OUTSIDE RECORDS SUMMARY | 2024-10-16 16:13 | XMS_ITS | Patient Health Summary ---
Author Organization [facility] Address [address] [place] [address] Care Team Providers Care Fox Raiser Name Role Phone Erickson Alejandre MD Primary Care Provider Note from [facility],non-owned Affiliates and Associated Physician Practices is amultiple site organization consisting of ambulatory clinics and hospital sitesin [place], [place], [place] and [place]. This disclosure is being madepursuant to the Care Everywhere program and may not contain all information available regarding this patient. Last updated 18.[facility] Immunizations * INFLUENZA VACCINE, QUADR. (FLUZONE; FLULAVAL; FLUARIX; AFLURIA QUADRIVALENT; 6MO+), 0.5 ML (IIV4)(Given 07/30/2020) Social History Tobacco Use Types Packs/Day Years Used Date Smoking Tobacco: Never Assessed Sex and Gender Information Value Date Recorded Sex Assigned at Not on file Gender Identity Not on file Sexual Orientation Not on file Care Teams Fox Raiser Relationship Specialty Start Date End Date Erickson Alejandre MD [address] [place] [address] PCP - General 02/14/11
--- OUTSIDE RECORDS SUMMARY | 2024-10-16 16:13 | XMS_ITS | Referral Summary ---
Author Organization [facility] Address [address] [place] [address] Care Team Providers Care Fur Operator Name Role Phone Zain Cabrera MD Primary Care Provider [phone] Pantera Dewitt MD Unavailable [phone] Celine Lujan NP Unavailable [phone] Miscellaneous, Not In File Unavailable Unava ilable Encounters Date Type Department Care Team Description 10/14/2024 8:00 AM PRODUCTION MECHANIC Office Visit [facility] Medical [facility] Cardiology [address] [place] [address] [place] [phone] Stan Bautista MD Coronary artery disease involving lime coronary artery of lime heart with angina pectoris (HCC) (Primary Dx) 09/08/2024 Telephone [facility] Medical [facility] Cardiology [address] [place] [address] [address] [place] [phone] Stan Bautista MD Med Refill 07/25/2024 9:00 AM CDT Home Care Visit [address] [address] [address] [place] [address] Tom Brower RN SN NON OASIS DISCHARGE 07/24/2024 11:30 AM CDT Office Visit [facility] Surgery [address] [facility] [address] [place] [address] Pantera Dewitt MD S/P CABG x 4 (Primary Dx) 07/18/2024 3:00 PM CDT Home Care Visit [place] [address] [address] [place] [address] Margy Ferrara RN SN HOME VISIT from Last 3 Months Allergies Active Allergy Reactions Criticality Noted Date [...] Diagnosed Date Coronary artery disease (CAD) excluded 4 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 stable angina pectoris 06/18/2024 Coronary artery disease invo lving lime coronary artery of lime heart with angina pectoris 06/17/2024 Hypertension 06/17/2024 Hyperlipidemia 06/17/2024 Type 2 diabetes mellitus 06/17/2024 Social History Tobacco Use Types Packs/Day Years [...] materials from doctor or pharmacy Never 07/25/2024 [facility] Utilities Answer Date Recorded In the past 12 months has th e electric, gas, oil, or water company [...] often do you attend chur ch or faith services? Never 06/18/2024 Do you belong to any clubs o r organizations such as cheondoism groups, unions, fraternal or athletic groups, or [...] any time in the past 12 m [facility], were you homeless or living in a snf (including now)? No 06/18/2024 Personal Safety Answer Date Recorded Have you ever been in or are you currently in a harmful physical or emotional relationship or is someone making you feel afraid or unsafe? Denies 06/17/2024 Sex and Gender Information Value Date Recorded Sex Assigned at Not on file Legal Sex Male 4:46 AM PRODUCTION MECHANIC Gender Identity Not on file Sexual Orientation Not on file Last Filed Vital Signs Vital Sign Reading Time Taken Comments Blood Pressure 122/70 10/14/2024 8:04 AM PRODUCTION MECHANIC Pulse 65 10/14/2024 8:04 AM PRODUCTION MECHANIC Temperature 37.1 ??C (98.7 ??F) 07/25/2024 9:15 AM CD T Respiratory Rate 18 07/25/2024 9:15 AM CDT Oxygen Saturation 99% 10/14/2024 8:04 AM PRODUCTION MECHANIC Inhaled Oxygen Concentration - - Weight 94.8 kg (209 lb) 10/14/2024 8:04 AM PRODUCTION MECHANIC Height 188 cm (6' 2 ) 10/14/2024 8:04 AM PRODUCTION MECHANIC Body Mass Index 26.83 10/14/2024 8:04 AM PRODUCTION MECHANIC Plan of Treatment Not on file Medical Devices Implanted Type Area Mower Mechanic Device Identifier Shelf Expiration Date Model / Serial / Lot [employer] Plate Bone Low Profile 4 Hole Box Sternum Ti 115.103.04 - [id number] Implanted:Qty: 1 on 06/19/2024 by Pantera Dewitt MD at [facility] N/A: Chest Wall [employer] 115.103.04 / / [employer] Plate Bone Low Profile 6 Hole H Shape Sternum Ti 115.102.06 - [id number] Implanted:Qty: 1 on 06/19/2024 by Pantera Dewitt MD at [facility] N/A: Chest Wall [employer] 115.102.06 / / [employer] Plate Bone Low Profile 6 Hole O Concave Sternum Ti 115.604.06 - [id number] Implanted:Qty: 1 on 06/19/2024 by Pantera Dewitt MD at [facility] N/A: Chest Wall [employer] 115.604.06 / / [employer] Screw Bone Slf Drl Full Thread Locking 3.5x16mm Ti 100.035.16 - [id number] Implanted:Qty: 16 on 06/19/2024 by Pantera Dewitt MD at [facility] N/A: Chest Wall [employer] 100.035.16 [...] Capillary blood 07/10/2024 3 :56 PM CDT us Celine Lujan NP POINT OF CARE TEST [...] of Race in Diagnosing Kidney Disease, JASN 202). The CKD-EPI equation should not be used for patients with unstable renal function and has not been validated in children and those over 70. Current interpretive data was last reviewed 2021. Blood 06/30/2024 12:4 0 PM CDT 06/30/2024 6:16 PM CDT us Pantera Dewitt MD LAB BLOOD ORDERABLES Final Res ult [facility] Department of Laboratories [place], [place] [id number] from Last 3 Months or Most Recently Relevant to Health Maintenance [facility] OPEN ACCESS Advance Directives For more information, please contact: [phone] * Full Code (Latest Code Status on File) Date Activated Date Inactivated Comments 06/17/2024 12:52 PM 06/23/2024 8:34 PM Care Teams Fur Operator Relationship Specialty Start Date End Date Zain Cabrera MD PCP - General Family Medicine 02/21/23 Pantera Dewitt MD [id number] [place] [address] Surgeon Cardiothoracic Surgery 06/23/24 Celine Lujan NP [address] [place] [address] Nurse Practitioner Cardiovascular Disease 06/23/24 Miscellaneous, Not In File 06/23/24
--- OUTSIDE RECORDS SUMMARY | 2024-10-16 16:13 | XMS_ITS | Encounter Summary ---
Author Organization [facility] Healthcare Address [address] [place] [address] Care Team Providers Care Perlite Grinder Name Role Phone Zain Cabrera MD Primary Care Provider + [phone] Pantera Dewitt MD Unavailable Celine Lujan NP Unavailable [phone] Miscellaneous, Not In File Unavailable Unava ilable Reason for Visit * Reason Comments Coronary Artery Disease Hypertension Hyperlipidemia Encounter Details Date Type Department Care Team (Late st Contact Info) Description 10/14/2024 8:00 AM BEST SECOND JOBS Office Visit [facility] Cardiology [address] [place] [address] Stan Bautista MD [address] [place] [address] Coronary artery disease involving [place] coronary artery of [place] heart with angina pectoris (HCC) (Primary Dx) Social History Tobacco Use Types Packs/Day Years Used Date Smoking Tobacco: Some Days Cigars Smokeless Tobacco: Never OASIS [id number]: Social Isolation Answer Da te [...] materials from doctor or pharmacy Never 07/25/2024 [facility] Utilities Answer Date Recorded In the past [...] often do you attend chur ch or restoration services? Never 06/18/2024 Do you belong to any clubs o r organizations such as adventism groups, unions, fraternal or athletic groups, or [...] any time in the past 12 m [facility], were you homeless or living in a [place] [facility] [place] facility (including now)? No 06/18/2024 Personal Safety Answer Date Recorded Have you ever been in or are you currently in a harmful physical or emotional relationship or is someone making you feel afraid or unsafe? Denies 06/17/2024 Sex and Gender Information Value Date Recorded Sex Assigned at Not on file Legal Sex Male 4:46 AM BEST SECOND [employer] Gender Identity Not on file Sexual Orientation Not on file documented as of this encounter Last Filed Vital Signs Vital Sign Reading Time Taken Comments Blood Pressure 122/70 10/14/2024 8:04 AM BEST SECOND JOBS Pulse 65 10/14/2024 8:04 AM BEST SECOND JOBS Temperature - - Respiratory Rate - - Oxygen Saturation 99% 10/14/2024 8:04 AM BEST SECOND JOBS Inhaled Oxygen Concentration - - Weight 94.8 kg (209 lb) 10/14/2024 8:04 AM BEST SECOND JOBS Height 188 cm (6' 2 ) 10/14/2024 8:04 AM BEST SECOND JOBS Body Mass Index 26.83 10/14/2024 8:04 AM BEST SECOND JO[employer] documented in this encounter Progress Notes * Stan Bautista MD - 10/14/2024 8:00 AM CST [facility] CARDIOLOGY CHIEF COMPLAINT / REASON FOR CONSULT: follow up post CABG HISTORY: Erickson Hart is a 63 y.o. male with DM, HTN/HLD, and CAD sp CABG 05/2024 (DICKSON-LAD, radial sequential to diag and OM, SVG to RCA) returns for follow up of his cardiac care. He is doing wellwithout exertional chest discomfort. Denies orthopnea and syncope. Exercise Tolerance: Exercising and now lifting 80 lb Social: Family History: Medications: Aspirin 81 mg p.o. daily Plavix 75 mg p.o. daily Atorvastatin 40 mg every evening Lopressor 25 mg p.o. b.i.d. Metformin REVIEW OF SYSTEMS: GENERAL: As per HPI CVS: As per HPI HEME: No bruising, no bleeding PHYSICAL EXAMINATION: BP 122/70 (BP Location: Left arm, Patient Position: Sitting) Pulse 65 Ht 188 cm (6' 2 ) Wt 94.8 kg (209 lb) SpO2 99% BMI 26.83 kg/m?? GENERAL: Alert, in no distress HEAD: Normocephalic and atraumatic EYES: Extraocular movement intact ENT: Unremarkable NECK: no jugular venous distention CHEST: Clear to auscultation, no wheezes, rales or rhonchi, symmetric air entry CARDIAC: Regular rate and rhythm, S1 S2 normal, no murmur, rub, heaves, thrills or gallops ABDOMEN: soft, nontender, no bruit EXTREMITIES: No edema PERIPHERAL PULSES: Peripheral pulses symmetrical SKIN: Warm and dry NEURO: Alert and oriented x 3 LABS: No results found for: CHOL No results found for: HDL No results found for: LDLCALC No results found for: TRIG No results found for: CHOLHDL No results found for: HGBA1C CARDIAC IMAGING RESULTS REVIEW: Echo 05/2024: Normal biventricular size and systolic function. Mild aortic stenosis. Cardiac CT Stress Test Cardiac Monitors Cath 05/2024: lm patent, pLAD 90%, pLCx 70%, subtotal RCA ASSESSMENT/PLAN: 63 y.o. male with DM, HTN/HLD, and CAD sp CABG 05/2024 (DICKSON- LAD, radial sequentialto diag and OM, SVG to RCA) returns for follow up of his cardiac care CAD sp CABG 05/2024 - presentation of unstable angina and should continue DAPT for a year HTN - continue lopressor 25mg PO BID for goal SBP < 130mmHg HLD - continue atorvastatin 40mg qhs RTC in 9 months as he would like to discuss discontinuation of plavix and lopressor at that time Stan Bautista MD SECOND JOBS documented in this encounter Plan of Treatment Not on file documented as of this encounter Visit Diagnoses Diagnosis Coronary artery disease involving mechoopda coronary artery of mechoopda heart with angina pectoris (HCC)- Primary documented in this encounter Care Teams Perlite Grinder Relationship Specialty Start Date End Date Zain Cabrera MD PCP - General Family Medicine 02/21/23 Pantera Dewitt MD [id number] [place] [address] Surgeon Cardiothoracic Surgery 06/23/24 Celine Lujan NP [address] [address] Nurse Practitioner Cardiovascular Disease 06/23/24 Miscellaneous, Not In File 06/23/24 documented as of this encounter
== END 2024-10-14 08:27 | disposition home or self-care (01) ==
LOC: ANHLAB 08:28
PROVIDERS: PCP Family Medicine; Visit Provider Nurse Practitioner Family
DX: E87.5 Hyperkalemia (principal)
CPT/HCPCS: 36415; 80048; 83540; 83550; 85027

== ENCOUNTER 2025-01-04 15:49 | Emergency (ER) | payer OTHER, SELFPAY ==
--- NOTE | ~2025-01-04 | XR_ITS ---
EXAM: XR finger 3rd LT min 2V DATE: 01/04/2025 16:08 HISTORY: laceration to dorsal finger/chainsaw . COMPARISON: None available. FINDINGS: Normal mineralization. No fracture or dislocation. No lytic or blastic lesion. Joint space s are maintained. No erosion or periosteal change. Deep soft tissue laceration over the dorsal left t hird finger, with possible extension to the PIP joint. Linear radiopaque foreign body along the poste romedial aspect of the laceration. Overlying bandage material. IMPRESSION: No definite acute osseous finding in the third finger. Deep dorsal soft tissue laceration , with possible extension to the PIP joint. Small radiopaque foreign body in the posteromedial lacera tion. Reviewed, dictated and finalized at location K. IMPRESSION: No definite acute osseous finding in the third finger. Deep dorsal soft tissue laceration, with possible extension to the PIP joint. Small radiopa que foreign body in the posteromedial laceration.
--- NOTE | 2025-01-04 15:50 | ED.WOUNDLAC ---
HPI - Wound/Laceration General Chief Complaint: Wound/Laceration Stated Complaint: middle finger left hand cut Time Seen by Provider: 01/04/25 15:49 Source: patient Mode of arrival: ambulatory Limitations: no limitations History of Present Illness HPI narrative: Erickson is a 64-year-old male patient presenting to the clinic today with complaints a laceration to his left middle finger. He reports he cut it using a chain saw approximately 1-2 hours ago. Was about [place] this occurred. Bleeding is controlled. He is on Plavix and aspirin. Tetanus shot is not up-to-date. Is able to flex and extend the left middle finger. Laceration is to the dorsal proximal distal phalanx Related Data Home Medications ?Medication ?Instructions ?Recorded ?Confirmed ?Last Taken ?Type aspirin 81 mg tablet,delayed mg PO DAILY 07/17/24 08/28/24 Unknown History release clopidogrel 75 mg tablet mg PO DAILY 07/17/24 08/28/24 Unknown History metoprolol tartrate 25 mg tablet mg PO DAILY 07/17/24 08/28/24 Unknown History Allergies Allergy/AdvReac Type Severity Reaction Status Date / Time Penicillins Allergy Unknown Unknown Verified 01/04/25 16:22 Review of Systems Review of Systems: Pertinent positives per HPI. Patient denies any fever, chills, rash, headache, visual changes, dizziness, cough, runny nose, sore throat, shortness of breath, chest pain, palpitations, nausea, vomiting, diarrhea, constipation, abdominal pain, or any urinary issues. [facility] Past Medical History Medical History Non-STEMI (non-ST elevated myocardial infarction) Elevated troponin Chest pain Shortness of breath on exertion Chest pain New onset type 2 diabetes mellitus Acute bronchitis Prediabetes Labral tear of hip joint Paresthesia of right leg Cataract associated with other syndromes Screening for malignant neoplasm of prostate Screening for colon cancer Elevated hemoglobin A1c Mixed hyperlipidemia Surgical History Surgical History History of open heart surgery Family History Family History Father Carcinoma of colon Family history of primary malignant neoplasm of liver Cerebrovascular accident Mother Acute myocardial infarction Other Diabetes mellitus Hypertension Social History Social History Smoking status: Former smoker Tobacco type: cigars Second hand tobacco smoke exposure: Yes Smoking end date: 09/24/81 Alcohol intake: current Drinks per week: 10 Substance use: never Substance use type: does not use Do You Feel Safe in your Home?: Yes Lack of Transportation: No Lack of Food: Never True Current Housing: I Have Housing Concerned About Future Housing: No Difficulty Paying Gas/Electric Bills: No Difficulty Paying for Meds: No Currently Unemployed: No Education: Decline to Answer Difficulty w/ Childcare or Family Care: No Living arrangements: with family Occupation/Education: occupation 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 There is no relevant family history pertinent to the patient complaint. Exam Narrative: General: Well-developed, well nourished, in no apparent distress Head: Normocephalic, atraumatic. Cardio: Regular rate and rhythm, s1 and s2 normal, no murmur appreciated. Resp: Clear to auscultation bilaterally, no rhonchi, rales, wheezing or rubs. Integumentary: [place], warm, and dry, gapping 4cm proximal laceration and 2.5cm distal laceration to the left dorsal index finger-bleeding controlled-able to flex and extend the DIP and PIP joints Course Course Emergency Course: Portions of this record may have been created with voice recognition software. Level of Care: Express Care Visit Vital Signs Vital signs: Vital Signs Temperature 36.8 C 01/04/25 15:59 Pulse Rate 73 01/04/25 15:59 Respiratory Rate 19 01/04/25 15:59 Blood Pressure 165/79 H 01/04/25 15:59 Pulse Oximetry 100 01/04/25 15:59 Oxygen Delivery Room Air 01/04/25 15:59 Temperature 36.8 C 01/04/25 15:59 Pulse Rate 73 01/04/25 15:59 Respiratory Rate 19 01/04/25 15:59 Blood Pressure 165/79 H 01/04/25 15:59 Pulse Oximetry 100 01/04/25 15:59 Oxygen Delivery Room Air 01/04/25 15:59 Vital signs reviewed Procedures Laceration Laceration 1: Date: 01/04/25 Site: hand (finger) Side (If applicable): left Size (cm): 7.5 Description: linear, irregular and contaminated Depth: simple, single layer Local Anesthetic: lidocaine 1% Amount of anesthesia used (mL): 3 Pre-repair: wound explored, irrigated, irrigated extensively and other (No visualized FB) ====== Skin Level ====== Skin layer closed with: nylon Size (cm): 5-0 Number of sutures: 17 Technique: simple, interrupted ====== Subcutaneous Layer ====== ====== Muscle Layer ====== ====== Tendon Layer ====== Dressing: Verbal consent obtained for laceration repair. Risk and benefits explained and patient voiced understanding. Area was cleansed with antiseptic wound wash and normal saline and a 27 gauge needle was then used to instill (3.5) ml of 1% lidocaine without epi into the wound edges. Wound was irrigated and no FB was visualized. Area was prepped and draped using sterile technique. A 5-0 suture on a p needle was used to place (17) interrupted sutures bringing the wound edges together- well approximated. Patient tolerated procedure well. Sterile dressing applied. MDM - Wound/Laceration MDM Narrative Medical decision making narrative: At the time of visit patient is resting comfortably on the exam table. Patient appears to be nontoxic. Diagnostics: No definite acute osseous finding in the third finger. Deep dorsal soft tissue laceration, with possible extension to the PIP joint. Small radiopaque foreign body in the posteromedial laceration Procedures: Laceration repair was performed-17 interrupted sutures were placed. Wound was irrigated extensively and there was no visualization of foreign body after irrigation was performed of the wound. Will place the patient on doxycycline prophylactically as he has allergies to penicillin Medications: Tetanus shot updated in the clinic today Plan: I suspect patient has to laceration to the dorsal left middle finger measuring 4 cm and 2.5 cm. Seventeen interrupted sutures were placed. Wound was irrigated extensively with antiseptic wound soap and normal saline and no foreign body was visualized after irrigation was performed. X-ray was negative for any fracture. Patient is able to flex and extend his PIP and the IP joint of the left middle finger. Metal finger splint was applied. Sutures out and 10-14 days. Supportive measures were discussed with the patient and they voiced understanding discharge instructions and agrees to treatment plan. Return precautions reviewed Differential Diagnosis Differential diagnosis: Likely laceration, abrasion and avulsion of skin Imaging Data Radiologist's impression: ITS Impressions Finger X-Ray 01/04/25 16:39 IMPRESSION: No definite acute osseous finding in the third finger. Deep dorsal soft tissue laceration, with possible extension to the PIP joint. Small radiopaque foreign body in the posteromedial laceration. Discharge Plan Discharge Clinical Impression: Finger laceration Qualifiers: Encounter type: initial encounter Finger: middle finger Damage to nail status: without damage Foreign body presence: without foreign body Laterality: left Qualified Code(s): S61.213A - Laceration without foreign body of left middle finger without damage to nail, initial encounter Patient Disposition: Home Condition: Stable Instructions: Antibiotic Form, Finger Laceration (ED) Additional Instructions: X-ray shows no acute osseous injury Leave bandage on for 24 hours then may remove and apply band aide covering as needed. Keep wound clean and dry Skin sutures out in 10-14 days. Wear metal finger splint as directed Take doxycycline as prescribed Watch for signs and symptoms of infection- redness, streaking, swelling, purulent discharge, or increase in pain. Follow up with your PCP for suture removal or return to the Express care. Patient Language: Czech Prescriptions: New doxycycline monohydrate 100 mg capsule 100 mg PO BID 7 Days Qty: 14 0RF No Action aspirin 81 mg tablet,delayed release (DR/EC) PO DAILY metoprolol tartrate 25 mg tablet PO DAILY clopidogrel 75 mg tablet PO DAILY (DME) OneTouch Ultra Test Strip See Rx Instructions .Route Qty: 100 3RF Rx Instructions: As directed for blood glucose monitoring daily (DME) lancets [OneTouch UltraSoft 2 Lancet] 30 gauge misc See Rx Instructions .Route Qty: 100 4RF Rx Instructions: As directed for blood glucose monitoring daily (DME) FreeStyle Veronica 3 Plus Sensor Device See Rx Instructions .Route Qty: 1 0RF Rx Instructions: As directed atorvastatin 40 mg tablet 40 mg PO DAILY Qty: 1 0RF Rx Instructions: cardio (DME) blood-glucose meter [OneTouch Ultra2 Meter] Misc See Rx Instructions .Route Qty: 1 0RF Rx Instructions: As directed for blood glucose monitoring daily fluticasone propionate [Flonase Allergy Relief] 50 mcg/actuation spray,suspension 1 spray intranasal DAILY Qty: 16 0RF Rx Instructions: administer into right nostril metformin 500 mg tablet extended release 24 hr See Rx Instructions .ROUTE .COMPLEX Qty: 90 0RF Dose Instruction: TAKE 1 TABLET BY MOUTH DAILY Rx Instructions: TAKE 1 TABLET BY MOUTH DAILY Follow-up/Referrals: Zain Cabrera MD [Primary Care Provider] - Time of Disposition: 17:02 Quality NIHSS Nursing Documentation ED NIHSS nursing documentation: reviewed/agree
[2025-01-04 15:59] VITALS: BP 165/79; PULSE 73; RESP 19; TEMP 36.8; O2SAT 100
[2025-01-04] MEDS: TETANUS,DIPHTHERIA,AC PERTUSSIS ADULT (0.5 ML) BOOSTRIX IM (16:17)
[2025-01-04] MEDS: LIDOCAINE 1% LOCAL INJ 2 ML AMPUL 4 ML INFILTRATE (16:18)
== END 2025-01-04 17:15 | disposition home or self-care (01) ==
PROVIDERS: Emergency Provider Nurse Practitioner Family; PCP Family Medicine
DX: S61.213A Laceration without foreign body of left middle finger without damage to nail, initial encounter (principal); W29.3XXA Contact with powered garden and outdoor hand tools and machinery, initial encounter; Z23 Encounter for immunization; I25.2 Old myocardial infarction; E78.2 Mixed hyperlipidemia; R73.03 Prediabetes; Z79.01 Long term (current) use of anticoagulants; Z79.82 Long term (current) use of aspirin; Z87.891 Personal history of nicotine dependence
CPT/HCPCS: 12002; 73140; 90471; 90715; 99213; G0463; J2003

== ENCOUNTER 2025-01-19 07:01 | Outpatient (CLI) | payer OTHER, SELFPAY ==
--- OUTSIDE RECORDS SUMMARY | 2025-01-19 07:03 | XMS_ITS | Clinical Summary ---
Author Organization [facility] Address [address] [place] [address] Care Team Providers Care Crate Tier Name Role Phone Erickson Alejandre MD Primary Care Provider [phone] Source Comments [facility],non-owned Affiliates and Associated Physician Practices is amultiple site organization consisting of ambulatory clinics and hospital sitesin [place], [place], [place] and [place]. This disclosure is being madepursuant to the Care Everywhere program and may not contain all information available regarding this patient. Last updated 18.[facility] Immunizations Immunization Administration Dates Next Due INFLUENZA VACCINE, QUADR. 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 Gender Identity Not on file Sexual Orientation [...] VACCINE (1 of 2) 12/28/2009 COVID-19 VACCINE (1 - 2023-2 5 season) 2024 DEPRESSION SCREENING 09/24/2024 INFLUENZA VACCINE (Season Ended) 2025 07/30/20 20 Respiratory Syncytial Virus (RSV) Vaccine Pt: or [...] to complete this topic MENINGOCOCCAL (Group B) VACC INE SHARED DECISION-MAKING Aged Out No longer eligibl e based on patient's age to complete this topic MENINGOCOCCAL GROUPS A/C/Y/W VACCINE Aged Out No longer eligible b ased on patient's age to complete this topic Care Teams Crate Tier Relationship Specialty Start Date End Date Erickson Alejandre MD [address] [place] [address] PCP - General 02/14/11
--- OUTSIDE RECORDS SUMMARY | 2025-01-19 07:04 | XMS_ITS | Referral Summary ---
Author Organization [facility] Address [address] [place] [address] Care Team Providers Care Pumper Brewery Name Role Phone Zain Cabrera MD Primary Care Provider [phone] Pantera Dewitt MD Unavailable [phone] Celine Lujan NP Unavailable [phone] Miscellaneous, Not In File Unavailable Unava ilable Encounters Date Type Department Care Team Description 10/23/2024 11:00 AM KILN MAINTENANCE Office Visit [facility] Surgery [address] [place] [address] Daylin Martin, BURTON S/P CABG x 4 (Primary Dx) from Last 3 Months Allergies Active Allergy [...] by mouth daily 30 tablet 2 4 Active metoprolol tartrate (LOPRESSOR) 25 mg immediate release tablet TAKE 1 TABLET(25 MG) BY MOUTH TWICE DAILY 60 tablet 2 5 Active clopidogreL (PLAVIX) 75 mg tablet TAKE 1 TABLET(75 MG) BY MOUTH DAILY 30 tablet 2 5 Active atorvastatin (LIPITOR) 40 mg tablet TAKE 1 TABLET(40 MG) BY MOUTH EVERY NIGHT 30 tablet 2 5 Active Active Problems Problem Noted Date Diagnosed Date Coronary artery disease (CAD) excluded 4 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 stable angina pectoris 06/18/2024 Coronary artery disease invo lving [place] coronary artery of [place] heart with angina pectoris 06/17/2024 Hypertension 06/17/2024 [...] materials from doctor or pharmacy Never 07/25/2024 [facility] Utilities Answer Date Recorded In the past 12 months has th e [employer], gas, oil, or water company threatened to [...] often do you attend chur ch or jainism services? Never 06/18/2024 Do you belong to any clubs o r organizations such as jehovah's witness groups, unions, fraternal or athletic groups, or [...] any time in the past 12 m [facility], were you homeless or living in a penitentiary (including now)? No 06/18/2024 Personal Safety Answer Date Recorded Have you ever been in or are you currently in a harmful physical or emotional relationship or is someone making you feel afraid or unsafe? Denies 06/17/2024 Sex and Gender Information Value Date Recorded Sex Assigned at Not on file Legal Sex Male 4:46 AM KILN MAINTENANCE Gender Identity Not on file Sexual Orientation Not on file Last Filed Vital Signs Vital Sign Reading Time Taken Comments Blood Pressure 138/72 10/23/2024 11:08 AM KILN MAINTENANCE Pulse 80 10/23/2024 11:08 AM KILN MAINTENANCE Temperature 37.1 C (98.7 F) 07/25/2024 9:15 AM CDT Respiratory Rate 16 10/23/2024 11:08 AM KILN MAINTENANCE Oxygen Saturation 96% 10/23/2024 11:08 AM KILN MAINTENANCE Inhaled Oxygen Concentration - - Weight 93 kg (205 lb) 10/23/2024 11:08 AM KILN MAINTENANCE Height 188 cm (6' 2 ) 10/23/2024 11:08 AM KILN MAINTENANCE Body Mass Index 26.32 10/23/2024 11:08 AM KILN MAINTENANCE Plan of Treatment Not on file Medical Devices Implanted Type Area Animal Care Worker Device Identifier Shelf Expiration Date Model / Serial / Lot [employer] Plate Bone Low Profile 4 Hole Box Sternum Ti 115.103.04 - [id number] Implanted:Qty: 1 on 06/19/2024 by Pantera Dewitt MD at [facility] N/A: Chest Wall [employer] 115.103.04 / / [employer] Plate Bone Low Profile 6 Hole H Shape Sternum Ti 115.102.06 - [id number] Implanted:Qty: 1 on 06/19/2024 by Pantera Dewitt MD at [facility] N/A: Chest Wall [employer] 115.102.06 / / [employer] Plate Bone Low Profile 6 Hole O Concave Sternum Ti 115.604.06 - [id number] Implanted:Qty: 1 on 06/19/2024 by Pantera Dewitt MD at [facility] N/A: Chest Wall [employer] 115.604.06 / / [employer] Screw Bone Slf Drl Full Thread Locking 3.5x16mm Ti 100.035.16 - [id number] Implanted:Qty: 16 on 06/19/2024 by Pantera Dewitt MD at [facility] N/A: Chest Wall [employer] 100.035.16 [...] m2 Comment: Interpretive Data Reference Interval Normal >/= 90 mL/min/1.73m2 Mildly decreased* 60 - 89 mL/min/1.73m2 Mildly to moderately decreased 45 - 59 mL/min/1.73m2 Moderately to severely decreased 30 - 44 mL/min/1.73m2 Severely decreased 15 - 29 mL/min/1.73m2 Kidney Failure < 15 mL/min/1.73m2 *Relative to young adult level Estimated glomerular [...] MD LAB BLOOD ORDERABLES Final Res ult [facility] Department [place] [address] from Last 3 Months or Most Recently Relevant to Health Maintenance Insurance [employer] OPEN ACCESS [employer] OPEN ACCESS Advance Directives For more information, please contact: [phone] * Full Code (Latest Code Status on File) Date Activated Date Inactivated Comments 06/17/2024 12:52 PM 06/23/2024 8:34 PM Care Teams Pumper Brewery Relationship Specialty Start Date End Date Zain Cabrera MD PCP - General Family Medicine 02/21/23 Pantera Dewitt MD [id number] [place] [address] Surgeon Cardiothoracic Surgery 06/23/24 Celine Lujan NP [address] [place] [id number] Nurse Practitioner Cardiovascular Disease 06/23/24 Miscellaneous, Not In File 06/23/24
--- OUTSIDE RECORDS SUMMARY | 2025-01-19 07:04 | XMS_ITS | Clinical Summary ---
Author Organization [facility] Address [address] [place] [address] Care Team Providers Care Visitor Services Assistant Name Role Phone Zain Cabrera MD Primary Care Provider + [phone] Pantera Dewitt MD Unavailable [phone] Celine Lujan NP Unavailable [phone] Miscellaneous, Not In File Unavailable Unava ilable [...] pectoris 06/18/2024 Coronary artery disease invo lving [place] coronary artery of [place] heart with angina pectoris 06/17/2024 Hypertension 06/17/2024 Hyperlipidemia 06/17/2024 Type 2 diabetes mellitus 06/17/2024 Encounters Date Type Department Care Team Description 10/23/2024 11:00 AM TREKKING GUIDE Office Visit [facility] Surgery [address] [place] [phone] Daylin Martin NP S/P CABG x 4 (Primary Dx) from Last 3 Months Surgical History Surgery [...] materials from doctor or pharmacy Never 07/25/2024 [facility] Utilities Answer Date Recorded In the past 12 months has th e [employer], gas, oil, or water company threatened to [...] often do you attend chur ch or quaker services? Never 06/18/2024 Do you belong to any clubs o r organizations such as sikhism groups, unions, fraternal or athletic groups, or [...] any time in the past 12 m [facility], were you homeless or living in a m[facility]p (including now)? No 06/18/2024 Personal Safety Answer Date Recorded Have you ever been in or are you currently in a harmful physical or emotional relationship or is someone making you feel afraid or unsafe? Denies 06/17/2024 Sex and Gender Information Value Date Recorded Sex Assigned at Not on file Legal Sex Male 4:46 AM TREKKING GUIDE Gender Identity Not on file Sexual Orientation Not on file Obstetrics History Last Filed Vital Signs Vital Sign Reading Time Taken Comments Blood Pressure 138/72 10/23/2024 11:08 AM TREKKING GUIDE Pulse 80 10/23/2024 11:08 AM TREKKING GUIDE Temperature 37.1 C (98.7 F) 07/25/2024 9:15 AM CDT Respiratory Rate 16 10/23/2024 11:08 AM TREKKING GUIDE Oxygen Saturation 96% 10/23/2024 11:08 AM TREKKING GUIDE Inhaled Oxygen Concentration - - Weight 93 kg (205 lb) 10/23/2024 11:08 AM TREKKING GUIDE Height 188 cm (6' 2 ) 10/23/2024 11:08 AM TREKKING GUIDE Body Mass Index 26.32 10/23/2024 11:08 AM TREKKING GUIDE Plan of Treatment Health Maintenance Due Date Last Done Comments Albumin Creatinine Ratio, Urine 1959 Colon Cancer Screening-Colonoscopy 1959 Depression Screening 1959 Hemoglobin A1C 1959 Hepatitis C Screening 1959 Prostate Cancer Screening-PSA 1959 Dilated Eye Exam 1959 Foot Exam 1959 DTaP/Tdap/Td Vaccine (1 - Tdap) 12/28/1970 Hepatitis B Screening 12/28/1977 Pneumococcal vaccine 65+ (1 of 2 - PCV) 12/28/1978 Zoster Vaccine (1 of 2) 12/28/2009 Abdominal Aortic Aneurysm (A AA) Screen 12/28/2024 Well Visit 65+ 12/28/2024 Influenza Vaccine (Season Ended) 2025 05/23/2021, 07/30/2020, 08/09/2019 Fall Risk Assessment 06/23/2025 06/23/2024 eGFR 06/30/2025 06/30/2024, 05/27, 06/22/2024, Additional history exists Lipid Panel 07/10/2025 07/10/2024 Medical Devices Implanted Type Area Benzene Washer Device Identifier Shelf Expiration Date Model / Serial / Lot [employer] Plate Bone Low Profile 4 Hole Box Sternum Ti 115.103.04 - [id number] Implanted:Qty: 1 on 06/19/2024 by Pantera Dewitt MD at [facility] N/A: Chest Wall [employer] 115.103.04 / / [employer] Plate Bone Low Profile 6 Hole H Shape Sternum Ti 115.102.06 - [id number] Implanted:Qty: 1 on 06/19/2024 by Pantera Dewitt MD at [facility] N/A: Chest Wall [employer] 115.102.06 / / [employer] Plate Bone Low Profile 6 Hole O Concave Sternum Ti 115.604.06 - [id number] Implanted:Qty: 1 on 06/19/2024 by Pantera Dewitt MD at [facility] N/A: Chest Wall [employer] 115.604.06 / / [employer] Screw Bone Slf Drl Full Thread Locking 3.5x16mm Ti 100.035.16 - [id number] Implanted:Qty: 16 on 06/19/2024 by Pantera Dewitt MD at [facility] N/A: Chest Wall [employer] [...] LAB BLOOD ORDERABLES Final Res ult [facility] Department [place] [address] from Last 3 Months or Most Recently Relevant to Health Maintenance Insurance [facility] OPEN ACCESS [facility] OPEN ACCESS Advance Directives For more information, please contact: [phone] * Full Code (Latest Code Status on File) Date Activated Date Inactivated Comments 06/17/2024 12:52 PM 06/23/2024 8:34 PM Care Teams Visitor Services Assistant Relationship Specialty Start Date End Date Zain Cabrera MD PCP - General Family Medicine 02/21/23 Pantera Dewitt MD [id number] [place] [address] Surgeon Cardiothoracic Surgery 06/23/24 Celine Lujan NP [address] [address] Nurse Practitioner Cardiovascular Disease 06/23/24 Miscellaneous, Not In File 06/23/24
[2025-01-19 07:52] LABS: Hematocrit 39.8 % (42.0-52.0); Hemoglobin 13.6 g/dL (14.0-18.0); Mean Corpuscular HGB Conc 34.2 g/dl (32-36); Mean Corpuscular Hemoglobin 33.2 pg (26-34); Mean Corpuscular Volume 97.1 fl (80-100); Mean Platelet Volume 9.2 fl (7.4-10.4); Platelet Count Result 212 k/mm3 (150-375); Red Cell Distribution Width 13.1 % (11.5-14.5); White Blood Count 6.1 K/mm3 (4.5-10.0)
[2025-01-19 08:49] LABS: Anion Gap 6 mmol/L (4-12); Blood Urea Nitrogen 20 mg/dL (9-20); Calcium 8.9 mg/dL (8.4-10.2); Carbon Dioxide 29 mmol/L (22-30); Chloride 103 mmol/L (98-107); Estimated Glomerular Filt Rate 55; Glucose 106 mg/dL (65-110); Potassium 4.4 mmol/L (3.4-5.0); Sodium 138 mmol/L (137-145)
== END 2025-01-19 07:02 | disposition home or self-care (01) ==
PROVIDERS: PCP Family Medicine; Visit Provider Nurse Practitioner Family
DX: N28.9 Disorder of kidney and ureter, unspecified (principal); E87.5 Hyperkalemia; D64.9 Anemia, unspecified
CPT/HCPCS: 36415; 80048; 85027

== ENCOUNTER 2025-02-05 08:01 | Outpatient (CLI) | payer OTHER, SELFPAY ==
--- OUTSIDE RECORDS SUMMARY | 2025-02-05 08:05 | XMS_ITS | Clinical Summary ---
Author Organization [facility] Address [address] [place] [address] Care Team Providers Care Yard Rigger Name Role Phone Erickson Alejandre MD Primary Care Provider Source Comments [facility],non-owned Affiliates and Associated Physician Practices is amultiple site organization consisting of ambulatory clinics and hospital sitesin [place], [place], [place] and [place]. This disclosure is being madepursuant to the Care Everywhere program and may not contain all information available regarding this patient. Last updated 18.[facility] Immunizations Immunization Administration Dates Next Due INFLUENZA VACCINE, QUADR. 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
--- OUTSIDE RECORDS SUMMARY | 2025-02-05 08:05 | XMS_ITS | Clinical Summary ---
Author Organization [facility] Address [address] [place] [address] Care Team Providers Care Bicycle Racer Name Role Phone Zain Cabrera MD Primary Care Provider + [phone] Pantera Dewitt MD Unavailable [phone] Celine Lujan NP Unavailable [phone] Miscellaneous, Not In File Unavailable Unava ilable [...] pectoris 06/18/2024 Coronary artery disease invo lving [place] coronary artery of [place] heart with angina pectoris 06/17/2024 Hypertension 06/17/2024 Hyperlipidemia 06/17/2024 Type 2 diabetes mellitus 06/17/2024 Surgical History Surgery Date Site/Laterality Comments APPENDECTOMY [...] materials from doctor or pharmacy Never 07/25/2024 [facility] Utilities Answer Date Recorded In the past 12 months has th e [employer], gas, oil, or water company threatened to [...] often do you attend chur ch or hinduism services? Never 06/18/2024 Do you belong to any clubs o r organizations such as moravian groups, unions, fraternal or athletic groups, or [...] any time in the past 12 m [facility], were you homeless or living in a [facility] (including now)? No 06/18/2024 Personal Safety Answer Date Recorded Have you ever been in or are you currently in a harmful physical or emotional relationship or is someone making you feel afraid or unsafe? Denies 06/17/2024 Sex and Gender Information Value Date Recorded Sex Assigned at Not on file Legal Sex Male 4:46 AM PHYSICIAN GENERAL INTERNAL MEDICINE Gender Identity Not on file Sexual Orientation Not on file Obstetrics History Last Filed Vital Signs Vital Sign Reading Time Taken Comments Blood Pressure 138/72 10/23/2024 11:08 AM PHYSICIAN GENERAL INTERNAL MEDICINE Pulse 80 10/23/2024 11:08 AM PHYSICIAN GENERAL INTERNAL MEDICINE Temperature 37.1 C (98.7 F) 07/25/2024 9:15 AM CDT Respiratory Rate 16 10/23/2024 11:08 AM PHYSICIAN GENERAL INTERNAL MEDICINE Oxygen Saturation 96% 10/23/2024 11:08 AM PHYSICIAN GENERAL INTERNAL MEDICINE Inhaled Oxygen Concentration - - Weight 93 kg (205 lb) 10/23/2024 11:08 AM PHYSICIAN GENERAL INTERNAL MEDICINE Height 188 cm (6' 2 ) 10/23/2024 11:08 AM PHYSICIAN GENERAL INTERNAL MEDICINE Body Mass Index 26.32 10/23/2024 11:08 AM PHYSICIAN GENERAL INTERNAL MEDICINE Plan of Treatment Health Maintenance Due Date [...] 07/10/2025 07/10/2024 Medical Devices Implanted Type Area Inventory Assistant Device Identifier Shelf Expiration Date Model / Serial / Lot [employer] Plate Bone Low Profile 4 Hole Box Sternum Ti 115.103.04 - [id number] Implanted:Qty: 1 on 06/19/2024 by Pantera Dewitt MD at [facility] N/A: Chest Wall [employer] 115.103.04 / / [employer] Plate Bone Low Profile 6 Hole H Shape Sternum Ti 115.102.06 - [id number] Implanted:Qty: 1 on 06/19/2024 by Pantera Dewitt MD at [facility] N/A: Chest Wall [employer] 115.102.06 / / [employer] Plate Bone Low Profile 6 Hole O Concave Sternum Ti 115.604.06 - [id number] Implanted:Qty: 1 on 06/19/2024 by Pantera Dewitt MD at [facility] N/A: Chest Wall [employer] 115.604.06 / / [employer] Screw Bone Slf Drl Full Thread Locking 3.5x16mm Ti 100.035.16 - [id number] Implanted:Qty: 16 on 06/19/2024 by Pantera Dewitt MD at [facility] N/A: Chest Wall [employer] 100.035.16 [...] Res ult [facility] Department of Laboratories [place], [place] [id number] from Last 3 Months or Most Recently Relevant to Health Maintenance Insurance [employer] OPEN ACCESS [facility] OPEN ACCESS Advance Directives For more information, please contact: [phone] * Full Code (Latest Code Status on File) Date Activated Date Inactivated Comments 06/17/2024 12:52 PM 06/23/2024 8:34 PM Care Teams Bicycle Racer Relationship Specialty Start Date End Date Zain Cabrera MD PCP - General Family Medicine 02/21/23 Pantera Dewitt MD [id number] [place] [address] Surgeon Cardiothoracic Surgery 06/23/24 Celine Lujan NP [address] [facility] [address] [place] [address] Nurse Practitioner Cardiovascular Disease 06/23/24 Miscellaneous, Not In File 06/23/24
--- OUTSIDE RECORDS SUMMARY | 2025-02-05 08:05 | XMS_ITS | Referral Summary ---
Author Organization [facility] Address [address] [place] [address] Care Team Providers Care Assembler Hydraulic Backhoe Name Role Phone Zain Cabrera MD Primary Care Provider + [phone] Pantera Dewitt MD Unavailable [phone] Celine Lujan NP Unavailable [phone] Miscellaneous, Not In File Unavailable Unava ilable [...] pectoris 06/18/2024 Coronary artery disease invo lving [place] coronary artery of [place] heart with angina pectoris 06/17/2024 Hypertension 06/17/2024 [...] materials from doctor or pharmacy Never 07/25/2024 [facility] Utilities Answer Date Recorded In the past 12 months has e [employer], [employer], oil, or water [employer] threatened to shut off services in your [...] often do you attend chur ch or mormonism services? Never 06/18/2024 Do you belong to any clubs o r organizations such as caodaism groups, unions, fraternal or athletic groups, or [...] any time in the past 12 m [facility], were you homeless or living in a jail (including now)? No 06/18/2024 Personal Safety Answer Date Recorded Have you ever been in or are you currently in a harmful physical or emotional relationship or is someone making you feel afraid or unsafe? Denies 06/17/2024 Sex and Gender Information Value Date Recorded Sex Assigned at Not on file Legal Sex Male 4:46 AM OIL LABORATORY ANALYST Gender Identity Not on file Sexual Orientation Not on file Last Filed Vital Signs Vital Sign Reading Time Taken Comments Blood Pressure 138/72 10/23/2024 11:08 AM OIL LABORATORY ANALYST Pulse 80 10/23/2024 11:08 AM OIL LABORATORY ANALYST Temperature 37.1 C (98.7 F) 07/25/2024 9:15 AM CDT Respiratory Rate 16 10/23/2024 11:08 AM OIL LABORATORY ANALYST Oxygen Saturation 96% 10/23/2024 11:08 AM OIL LABORATORY ANALYST Inhaled Oxygen Concentration - - Weight 93 kg (205 lb) 10/23/2024 11:08 AM OIL LABORATORY ANALYST Height 188 cm (6' 2 ) 10/23/2024 11:08 AM OIL LABORATORY ANALYST Body Mass Index 26.32 10/23/2024 11:08 AM OIL LABORATORY ANALYST Plan of Treatment Not on file Medical Devices Implanted Type Area Liquefaction And Regasification Helper Device Identifier Shelf Expiration Date Model / Serial / Lot [employer] Plate Bone Low Profile 4 Hole Box Sternum Ti 115.103.04 - [id number] Implanted:Qty: 1 on 06/19/2024 by Pantera Dewitt MD at [facility] N/A: Chest Wall [employer] 115.103.04 / / [employer] Plate Bone Low Profile 6 Hole H Shape Sternum Ti 115.102.06 - [id number] Implanted:Qty: 1 on 06/19/2024 by Pantera Dewitt MD at [facility] N/A: Chest Wall [employer] 115.102.06 / / [employer] Plate Bone Low Profile 6 Hole O Concave Sternum Ti 115.604.06 - [id number] Implanted:Qty: 1 on 06/19/2024 by Pantera Dewitt MD at [facility] N/A: Chest Wall [employer] 115.604.06 / / [employer] Screw Bone Slf Drl Full Thread Locking 3.5x16mm Ti 100.035.16 - [id number] Implanted:Qty: 16 on 06/19/2024 by Pantera Dewitt MD at [facility] N/A: Chest Wall [employer] [...] MD LAB BLOOD ORDERABLES Final Res [facility] Department [place] [address] from Last 3 Months or Most Recently Relevant to Health Maintenance Insurance [employer] OPEN ACCESS [employer] OPEN ACCESS Advance Directives For more information, please contact: [phone] * Full Code (Latest Code Status on File) Date Activated Date Inactivated Comments 06/17/2024 12:52 PM 06/23/2024 8:34 PM Care Teams Assembler Hydraulic Backhoe Relationship Specialty Start Date End Date Zain Cabrera MD PCP - General Family Medicine 02/21/23 Pantera Dewitt MD [id number] [place] [address] Surgeon Cardiothoracic Surgery 06/23/24 Celine Lujan NP [address] [address] Nurse Practitioner Cardiovascular Disease 06/23/24 Miscellaneous, Not In File 06/23/24
== END 2025-02-05 08:02 | disposition home or self-care (01) ==
LOC: ANHAUDIO 08:02
PROVIDERS: PCP Family Medicine; Visit Provider Nurse Practitioner Family
DX: H90.3 Sensorineural hearing loss, bilateral (principal); H93.19 Tinnitus, unspecified ear
CPT/HCPCS: 92557; 92567

== ENCOUNTER 2025-07-03 07:14 | Outpatient (CLI) | payer OTHER, SELFPAY ==
--- OUTSIDE RECORDS SUMMARY | 2025-07-03 07:17 | XMS_ITS | Encounter Summary ---
Author Organization [facility] Address [address] [place] [address] Care Team Providers Care Office Equipment Mechanic Name Role Phone aZin Cabrera MD Primary Care Provider + [phone] Pantera Dewitt MD Unavailable [phone] Celine Lujan NP Unavailable [phone] Miscellaneous, Not In File Unavailable Unava ilable Encounter Details Date Type Department Care Team (Late st Contact Info) Description 06/05/2025 Telephone [facility] Medical Group Cardiology [address] [place] [address] Stan Bautista MD [address] [place] [address] Social History Tobacco Use Types Packs/Day Years [...] materials from doctor or pharmacy Never 07/25/[address] [facility] Utilities Answer Date Recorded In the past 12 months has e electric, gas, oil, or water company threatened to shut off services in your home? No 06/18/2024 Social Connection and Isolation Panel Answer Date Recorded In a typical week, [...] any clubs o r organizations such as congregational groups, unions, fraternal or athletic groups, or [...] time in the past 12 m [facility], were you homeless or living [...] on file Legal Sex Male 4:46 AM EMULSION OPERATOR Gender Identity Not on file Sexual Orientation Not on file documented as of this encounter Miscellaneous Notes * Telephone Encounter - Andreea Peralta RN - 06/05/2025 10:09 AM CDT Please see previous telephone thread. * Telephone Encounter - Pastora Hancock - 06/05/2025 10:00 AM CDT Patient states that simvastatin is causing muscle, joint, and tendon pain. Patient states his joints feel like they are falling apart. Requesting call back to discuss. Thank you. Contact : [phone] documented in this encounter Plan of Treatment Not on file documented as of this encounter Visit Diagnoses Not on filedocumented in this encounter Care Teams Office Equipment Mechanic Relationship Specialty Start Date End Date Zain Cabrrea MD PCP - General Family Medicine 02/21/23 Pantera Dewitt MD Surgeon Cardiothoracic Surgery 06/23/24 Celine Lujan NP [address] [place] [address] Nurse Practitioner Cardiovascular Disease 06/23/24 Miscellaneous, Not In File 06/23/24 documented as of this encounter
--- OUTSIDE RECORDS SUMMARY | 2025-07-03 07:17 | XMS_ITS | Clinical Summary ---
Author Organization [facility] Address [address] [place] [address] Care Team Providers Care Corporate Logistics Manager Name Role Phone Zain Cabrera MD Primary Care Provider + [phone] Pantera Dewitt MD Unavailable [phone] Celine Lujan NP Unavailable [phone] Miscellaneous, Not In File Unavailable Unava ilable Allergies Active Allergy Reactions Criticality Noted Date Comments Atorvastatin Muscle pain High 05/12/2025 Penicillin Unknown 02/21/2023 Simvastatin Muscle pain High 06/05/2025 Medications metFORMIN (FORTAMET) 500 mg 24 hr tabletIndicati ons:type 2 diabetes mellitus Take 1 tablet (500 mg total) by mouth daily with breakfast Active traMADoL (ULTRAM) 50 mg tabletIndicati ons:Pain Take 1 tablet (50 mg total) by mouth every 6 (six) hours as needed for pain for up to 7 days 24 tablet 06/23/20 24 Active Additional Information Patient not taking.Reported on 07/10/2024 acetaminophen 500 mg capsuleIndicat ions:pain/feve r Take 2 capsules (1,000 mg total) by mouth every 6 (six) hours as needed for pain or headaches 06/23/20 24 Active senna-docusate (PERICOLACE) 8.6-50 mgIndications: constipation Take 1 tablet by mouth daily as needed for constipation 30 tablet 06/23/20 24 Active Additional Information Patient not taking.Reported on 07/10/2024 aspirin 81 mg enteric coated tabletIndicati ons:prevention of thrombosis Take 1 tablet (81 mg total) by mouth daily 30 tablet 2 09/08/20 24 Active simvastatin (ZOCOR) 20 mg tablet Take 1 tablet (20 mg total) by mouth nightly 30 tablet 11 05/12/20 25 026 Active metoprolol tartrate (LOPRESSOR) 25 mg immediate release tablet Take 1 tablet (25 mg total) by mouth 2 (two) times a day 60 tablet 06/22/20 25 025 Active clopidogreL (PLAVIX) 75 mg tablet TAKE 1 TABLET(75 MG) BY MOUTH DAILY 30 tablet 06/22/20 25 Active metoprolol tartrate (LOPRESSOR) 25 mg immediate release tablet TAKE 1 TABLET(25 MG) BY MOUTH TWICE DAILY 60 tablet 2 03/18/20 25 025 Discontinued clopidogreL (PLAVIX) 75 mg tablet TAKE 1 TABLET(75 MG) BY MOUTH DAILY 30 tablet 2 03/18/20 25 025 Discontinued Active Problems Problem Noted Date Diagnosed Date Coronary artery disease (CAD) excluded 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 stable angina pectoris 06/18/2024 Coronary artery disease invo lving [place] coronary artery of [place] heart with angina pectoris 06/17/2024 Hypertension 06/17/2024 Hyperlipidemia 06/17/2024 Type 2 diabetes mellitus 06/17/2024 Encounters Date Type Department Care Team Description 06/22/[address] [facility] Medical Group Cardiology [address] [facility] [address] [place] [phone] Stan Bautista MD 06/05/2025 Telephone [facility] Cardiology [address] [facility] [address] [place] [phone] Stan Bautista MD 05/07/2025 Telephone [facility] Cardiology [address] [place] [phone] Stan Bautista MD from Last 3 Months Surgical History Surgery Date Site/Laterality Comments APPENDECTOMY INGUINAL HERNIA REPAIR Right in 1989' KNEE ARTHROSCOPY Right SKIN CANCER EXCISION CORONARY ARTERY BYPASS GRAFT 06/19/2024 Medical History Medical History Date Comments Hypertension Hyperlipidemia Diabetes mellitus Coronary artery disease 06/16/2024 Family History Medical [...] materials from doctor or pharmacy Never 07/25/2024 [facility] Utilities Answer Date Recorded In [...] often do you attend chur ch or mandaeism services? Never 06/18/2024 Do you belong to any clubs o r organizations such as adventist groups, unions, fraternal or athletic groups, or [...] in the past 12 m [facility], were you homeless or living in a care home (including now)? No 06/18/2024 Personal Safety Answer Date Recorded Have you ever been in or are you currently in a harmful physical or emotional relationship or is someone making you feel afraid or unsafe? Denies 06/17/2024 Sex and Gender Information Value Date Recorded Sex Assigned at Not on file Legal Sex Male 4:46 AM SHAREPOINT ADMIN Gender Identity Not on file Sexual Orientation Not on file Obstetrics History Last Filed Vital Signs Vital Sign Reading Time Taken Comments Blood Pressure 138/72 10/23/2024 11:08 AM SHAREPOINT ADMIN Pulse 80 10/23/2024 11:08 AM SHAREPOINT ADMIN Temperature 37.1 C (98.7 F) 07/25/2024 9:15 AM CDT Respiratory Rate 16 10/23/2024 11:08 AM SHAREPOINT ADMIN Oxygen Saturation 96% 10/23/2024 11:08 AM SHAREPOINT ADMIN Inhaled Oxygen Concentration - - Weight 93 kg (205 lb) 10/23/2024 11:08 AM SHAREPOINT ADMIN Height 188 cm (6' 2) 10/23/2024 11:08 AM SHAREPOINT ADMIN Body Mass Index 26.32 10/23/2024 11:08 AM SHAREPOINT ADMIN Plan of Treatment Health Maintenance Due Date [...] 12/28/2024 Well Visit 65+ 12/28/2024 Influenza Vaccine (#1) 2025 , 07/30/2020, 08/09/2019 Fall Risk Assessment 06/23/2025 06/23/2024 eGFR 06/30/2025 06/30/2024, 05/27, 06/22/2024, Additional history exists Lipid Panel 07/10/2025 07/10/2024 Medical Devices Implanted Type Area Information Delivery Analyst Device Identifier Shelf Expiration Date Model / Serial / Lot [employer] Plate Bone Low Profile 4 Hole Box Sternum Ti 115.103.04 - [id number] Implanted:Qty: 1 on 06/19/2024 by Pantera Dewitt MD at [facility] N/A: Chest Wall [employer] 115.103.04 / / [employer] Plate Bone Low Profile 6 Hole H Shape Sternum Ti 115.102.06 - [id number] Implanted:Qty: 1 on 06/19/2024 by Pantera Dewitt MD at [facility] N/A: Chest Wall [employer] 115.102.06 / / [employer] Plate Bone Low Profile 6 Hole O Concave Sternum Ti 115.604.06 - [id number] Implanted:Qty: 1 on 06/19/2024 by Pantera Dewitt MD at [facility] N/A: Chest Wall [employer] 115.604.06 / / [employer] Screw Bone Slf Drl Full Thread Locking 3.5x16mm Ti 100.035.16 - [id number] Implanted:Qty: 16 on 06/19/2024 by Pantera Dewitt MD at [facility] N/A: Chest Wall [employer] 100.035.16 [...] LAB BLOOD ORDERABLES Final Res ult [facility] Department [place] [address] from Last 3 Months or Most Recently Relevant to Health Maintenance Insurance [employer] OPEN ACCESS Advance Directives For more information, please contact: [phone] * Full Code (Latest Code Status on File) Date Activated Date Inactivated Comments 06/17/2024 12:52 PM 06/23/2024 8:34 PM Care Teams Corporate Logistics Manager Relationship Specialty Start Date End Date Zain Cabrera MD PCP - General Family Medicine 02/21/23 Pantera Dewitt MD Surgeon Cardiothoracic Surgery 06/23/24 Celine Lujan NP [address] [facility] [address] [place] [address] Nurse Practitioner Cardiovascular Disease 06/23/24 Miscellaneous, Not In File 06/23/24
--- OUTSIDE RECORDS SUMMARY | 2025-07-03 07:17 | XMS_ITS | Encounter Summary ---
Author Organization [facility] Healthcare Address [address] [place] [address] Care Team Providers Care Litigation Associate Name Role Phone Zain Cabrera MD Primary Care Provider + [phone] Pantera Dewitt MD Unavailable [phone] Celine Lujan NP Unavailable [phone] Miscellaneous, Not In File Unavailable Unava ilable Encounter Details Date Type Department Care Team (Late st Contact Info) Description 06/22/2025 Telephone [facility] Medical Group Cardiology [address] [place] [address] Stan Bautista MD [address] [place] [address] Social History Tobacco Use Types [...] materials from doctor or pharmacy Never 07/25/2024 [facility] Utilities Answer Date Recorded In the past [...] often do you attend chur ch or caodaism services? Never 06/18/2024 Do you belong to any clubs o r organizations such as christian groups, unions, fraternal or athletic groups, or [...] any time in the past 12 m [facility], were you homeless or living in a long term (including now)? No 06/18/2024 Personal Safety Answer Date Recorded Have you ever been in or are you currently in a harmful physical or emotional relationship or is someone making you feel afraid or unsafe? Denies 06/17/2024 Sex and Gender Information Value Date Recorded Sex Assigned at Not on file Legal Sex Male 4:46 AM SENIOR ACCOUNTANT ANALYST Gender Identity Not on file Sexual Orientation Not on file documented as of this encounter Miscellaneous Notes * Telephone Encounter - Starr Sandhu RN - 06/22/2025 2:34 PM CDT See previous telephone note. * Telephone Encounter - Lala Sears - 06/22/2025 10:58 AM CDT Patient called in and is wanting to speak to Andreea about medication that he is on. He says that he is supposed to report back to her. He would not provide any additional information. He is requestinga call back. Thank you. Contact : [phone] documented in this encounter Plan of Treatment Not on file documented as of this encounter Visit Diagnoses Not on filedocumented in this encounter Care Teams Litigation Associate Relationship Specialty Start Date End Date Zain Cabrera MD PCP - General Family Medicine 02/21/23 Pantera Dewitt MD Surgeon Cardiothoracic Surgery 06/23/24 Celine Lujan NP [address] [address] [place] [address] Nurse Practitioner Cardiovascular Disease 06/23/24 Miscellaneous, Not In File 06/23/24 documented as of this encounter
--- OUTSIDE RECORDS SUMMARY | 2025-07-03 07:17 | XMS_ITS | Clinical Summary ---
Author Organization [facility] Address [address] [facility] [place] [address] Care Team Providers Care Equipment Tester Name Role Phone Erickson Alejandre MD Primary Care Provider Source Comments [facility],non-owned Affiliates and Associated Physician Practices is amultiple site organization consisting of ambulatory clinics and hospital sitesin [place], [place], [place] and [place]. This disclosure is being madepursuant to the Care Everywhere program and may not contain all information available regarding this patient. Last updated 18.[facility] Immunizations Immunization Administration Dates Next Due INFLUENZA VACCINE, QUADR. (F LUZONE; FLULAVAL; FLUARIX; AFLURIA QUADRIVALENT; 6MO+), 0.5 ML (IIV4) 07/30/2020 Social History Tobacco Use Types Packs/Day Years Used Date Smoking Tobacco: Never Assessed Sex and Gender Information Value Date Recorded Sex Assigned at Not on file Legal Sex Male 7:15 PM DIRECTOR OF FOOD AND NUTRITION SERVICES Gender Identity Not on file Sexual Orientation [...] 12/28/2009 ZOSTER VACCINE (1 of 2) 12/28/2009 DEPRESSION SCREENING 09/24/2024 COVID-19 VACCINE (1 - 2023-2 5 season) 2025 INFLUENZA VACCINE (#1) 2025 07/30/2020 Respiratory Syncytial Virus (RSV) Vaccine Pt: or [...] age to complete this topic Care Teams Equipment Tester Relationship Specialty Start Date End Date Erickson Alejandre MD [address] [place] [address] PCP - General 02/14/11
[2025-07-03 08:05] LABS: Hematocrit 41.4 % (42.0-52.0); Hemoglobin 14.2 g/dL (14.0-18.0); Mean Corpuscular HGB Conc 34.3 g/dl (32-36); Mean Corpuscular Hemoglobin 33.5 pg (26-34); Mean Corpuscular Volume 97.6 fl (80-100); Platelet Count Result 216 k/mm3 (150-375); Red Blood Count 4.24 M/mm3 (4.6-6.20); White Blood Count 6.9 K/mm3 (4.5-10.0)
[2025-07-03 08:32] LABS: Anion Gap 7 mmol/L (4-12); Blood Urea Nitrogen 31 mg/dL (9-20); Calcium 9.0 mg/dL (8.4-10.2); Carbon Dioxide 29 mmol/L (22-30); Chloride 103 mmol/L (98-107); Estimated Glomerular Filt Rate 53; Glucose 115 mg/dL (65-110); Potassium 4.5 mmol/L (3.4-5.0); Sodium 139 mmol/L (137-145)
[2025-07-03 09:26] LABS: Vitamin B12 545.0 pg/mL (239-931)
== END 2025-07-03 07:15 | disposition home or self-care (01) ==
LOC: ANHLAB 07:15
PROVIDERS: PCP Family Medicine; Visit Provider Nurse Practitioner Family
DX: N18.9 Chronic kidney disease, unspecified (principal); E55.9 Vitamin D deficiency, unspecified; D64.9 Anemia, unspecified
CPT/HCPCS: 36415; 80048; 82306; 82607; 85027

== ENCOUNTER 2025-07-10 07:35 | Outpatient (CLI) | payer OTHER, SELFPAY ==
--- OUTSIDE RECORDS SUMMARY | 2025-07-10 07:40 | XMS_ITS | Clinical Summary ---
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 06/17/2024 Hypertension 06/17/2024 Hyperlipidemia 06/17/2024 Type 2 diabetes mellitus 06/17/2024 Encounters Date Type Department Care Team Description 07/06/2025 Telephone [facility] Medical [facility] Cardiology [address] [facility] [address] [place] [phone] Stan Bautista MD Lab Results 06/22/2025 Telephone [facility] Cardiology [address] [facility] [address] [place] [phone] Stan Bautista MD 06/05/2025 Telephone [facility] Cardiology [address] [facility] [address] [place] [phone] Stan Bautista MD 05/07/2025 Telephone [facility] Cardiology [address] [place] [address] [address] [place] [phone] Stan Bautista MD from Last 3 Months [...] materials from doctor or pharmacy Never 07/25/2024 [facility] Utilities Answer Date Recorded In the past [...] any clubs o r organizations such as latter day groups, unions, fraternal or athletic groups, or [...] any time in the past 12 m [facility], were you homeless or living in a jail (including now)? No 06/18/2024 Personal Safety Answer Date Recorded Have you ever been in or are you currently in a harmful physical or emotional relationship or is someone making you feel afraid or unsafe? Denies 06/17/2024 Sex and Gender Information Value Date Recorded Sex Assigned at Not on file Legal Sex Male 4:46 AM SOCIAL WORK ADMINISTRATOR Gender Identity Not on file Sexual Orientation Not on file Obstetrics History Last Filed Vital Signs Vital Sign Reading Time Taken Comments Blood Pressure 138/72 10/23/2024 11:08 AM SOCIAL WORK ADMINISTRATOR Pulse 80 10/23/2024 11:08 AM SOCIAL WORK ADMINISTRATOR Temperature 37.1 C (98.7 F) 07/25/2024 9:15 AM CDT Respiratory Rate 16 10/23/2024 11:08 AM SOCIAL WORK ADMINISTRATOR Oxygen Saturation 96% 10/23/2024 11:08 AM SOCIAL WORK ADMINISTRATOR Inhaled Oxygen Concentration - - Weight 93 kg (205 lb) 10/23/2024 11:08 AM SOCIAL WORK ADMINISTRATOR Height 188 cm (6' 2) 10/23/2024 11:08 AM SOCIAL WORK ADMINISTRATOR Body Mass Index 26.32 10/23/2024 11:08 AM SOCIAL WORK ADMINISTRATOR Plan of Treatment Health Maintenance Due Date [...] 07/10/2025 07/10/2024 Medical Devices Implanted Type Area Fiber Optic Central Office Installer Device Identifier Shelf Expiration Date Model / Serial / Lot [employer] Plate Bone Low Profile 4 Hole Box Sternum Ti 115.103.04 - [id number] Implanted:Qty: 1 on 06/19/2024 by Pantera Dewitt MD at [facility] N/A: Chest Wall [employer] 115.103.04 / / [employer] Plate Bone Low Profile 6 Hole H Shape Sternum Ti 115.102.06 - [id number] Implanted:Qty: 1 on 06/19/2024 by Pantera Dewitt MD at [facility] N/A: Chest Wall [employer] 115.102.06 / / [employer] Plate Bone Low Profile 6 Hole O Concave Sternum Ti 115.604.06 - [id number] Implanted:Qty: 1 on 06/19/2024 by Pantera Dewitt MD at [facility] N/A: Chest Wall [employer] 115.604.06 / / [employer] Screw Bone Slf Drl Full Thread Locking 3.5x16mm Ti 100.035.16 - [id number] Implanted:Qty: 16 on 06/19/2024 by Pantera Dewitt MD at [facility] N/A: Chest Wall [employer] [...] LAB BLOOD ORDERABLES Final Res ult [facility] Department [place] [address] from Last 3 Months or Most Recently Relevant to Health Maintenance Insurance [employer] OPEN ACCESS [employer] OPEN ACCESS Advance Directives For more information, please contact: [phone] * Full Code (Latest Code Status on File) Date Activated Date Inactivated Comments 06/17/2024 12:52 PM 06/23/2024 8:34 PM Care Teams Roofing Machine Tender Relationship Specialty Start Date End Date Zain Cabrera MD PCP - General Family Medicine 02/21/23 Pantera Dewitt MD Surgeon Cardiothoracic Surgery 06/23/24 Celine Lujan NP [address] [address] Nurse Practitioner Cardiovascular Disease 06/23/24 Miscellaneous, Not In File 06/23/24
--- OUTSIDE RECORDS SUMMARY | 2025-07-10 07:40 | XMS_ITS | Clinical Summary ---
Author Organization [facility] Address [address] [facility] [place] [address] Care Team Providers Care Production Sorter Name Role Phone Erickson Alejandre MD Primary Care Provider Source Comments [facility],non-owned Affiliates and Associated Physician Practices is amultiple site organization consisting of ambulatory clinics and hospital sitesin [place], [place], [place] and [place]. This disclosure is being madepursuant to the Care Everywhere program and may not contain all information available regarding this patient. Last updated 18.[facility] Immunizations Immunization Administration Dates Next Due INFLUENZA VACCINE, QUADR. (F LUZONE; FLULAVAL; FLUARIX; AFLURIA QUADRIVALENT; 6MO+), 0.5 ML (IIV4) 07/30/2020 Social History Tobacco Use Types Packs/Day Years Used Date Smoking Tobacco: Never Assessed Sex and Gender Information Value Date Recorded Sex Assigned at Not on file Legal Sex Male 7:15 PM COMPOSITION INSTRUCTOR Gender Identity Not on file Sexual Orientation [...] age to complete this topic Care Teams Production Sorter Relationship Specialty Start Date End Date Erickson Alejandre MD [address] [place] [address] PCP - General 02/14/11
--- OUTSIDE RECORDS SUMMARY | 2025-07-10 07:40 | XMS_ITS | Encounter Summary ---
Author Organization [facility] Healthcare Address [address] [place] [address] Care Team Providers Care Sales Performance Manager Name Role Phone Zain Cabrera MD Primary Care Provider + [phone] Pantera Dewitt MD Unavailable [phone] Celine Lujan NP Unavailable [phone] Miscellaneous, Not In File Unavailable Unava ilable Encounter Details Date Type Department Care Team (Late st Contact Info) Description 06/22/2025 Telephone [facility] Medical Group Cardiology [address] [place] [address] Stan Bautista MD [address] [place] [address] Social History Tobacco Use Types [...] materials from doctor or pharmacy Never 07/25/2024 [facility] Utilities Answer Date Recorded In the [...] often do you attend chur ch or orthodoxy services? Never 06/18/2024 Do you belong to any clubs o r organizations such as lutheran groups, unions, fraternal or athletic groups, or [...] in the past 12 m [facility], were you homeless or living in a alf (including now)? No 06/18/2024 Personal Safety Answer Date Recorded Have you ever been in or are you currently in a harmful physical or emotional relationship or is someone making you feel afraid or unsafe? Denies 06/17/2024 Sex and Gender Information Value Date Recorded Sex Assigned at Not on file Legal Sex Male 4:46 AM HOME STAGING SPECIALIST Gender Identity Not on file Sexual Orientation [...] requestinga call back. Thank you. Contact : [phone] documented in this encounter Plan of Treatment Not on file documented as of this encounter Visit Diagnoses Not on filedocumented in this encounter Care Teams Sales Performance Manager Relationship Specialty Start Date End Date Zain Cabrera MD PCP - General Family Medicine 02/21/23 Pantera Dewitt MD Surgeon Cardiothoracic Surgery 06/23/24 Celine Lujan NP [address] [facility] [address] [place] [address] Nurse Practitioner Cardiovascular Disease 06/23/24 Miscellaneous, Not In File 06/23/24 documented as of this encounter
[2025-07-10 09:31] LABS: Alanine Aminotransferase 17 U/L (6-50); Albumin Level 4.4 g/dL (3.5-5.1); Alkaline Phosphatase 54 U/L (38-126); Aspartate Amino Transferase 31 U/L (17-59); Bilirubin,Total 1.2 mg/dL (0.2-1.3); Cholesterol 216 mg/dL (0-200); Creatine Kinase 95 U/L (55-170); HDL Direct 42 mg/dL; Total Protein 7.4 g/dL (6.3-8.2); Triglycerides 130 mg/dL (<150)
== END 2025-07-10 07:36 | disposition home or self-care (01) ==
LOC: ANHLAB 07:38
PROVIDERS: PCP Family Medicine; Visit Provider Internal Medicine
DX: E78.5 Hyperlipidemia, unspecified (principal); I25.10 Atherosclerotic heart disease of native coronary artery without angina pectoris
CPT/HCPCS: 36415; 80061; 80076; 82550

== ENCOUNTER 2025-09-15 07:12 | Outpatient (CLI) | payer OTHER, SELFPAY ==
--- OUTSIDE RECORDS SUMMARY | 2025-09-15 07:17 | XMS_ITS | Clinical Summary ---
Author Organization [facility] Address [address] [place] [address] Care Team Providers Care Garment Finisher Name Role Phone Erickson Alejandre MD Primary Care Provider Source Comments [facility],non-owned Affiliates and Associated Physician Practices is amultiple site organization consisting of ambulatory clinics and hospital sitesin [place], [place], [place] and [place]. This disclosure is being madepursuant to the Care Everywhere program and may not contain all information available regarding this patient. Last updated 18.[facility] Immunizations Immunization Administration Dates Next Due INFLUENZA VACCINE, QUADR. (F LUZONE; FLULAVAL; FLUARIX; AFLURIA QUADRIVALENT; 6MO+), 0.5 ML (IIV4) 07/30/2020 Social History Tobacco Use Types Packs/Day Years Used Date Smoking Tobacco: Never Assessed Sex and Gender Information Value Date Recorded Sex Assigned at Not on file Legal Sex Male 7:15 PM AREA DEVELOPMENT MANAGER Gender Identity Not on file Sexual [...] DEPRESSION SCREENING 09/24/2024 COVID-19 VACCINE (1 - 2024-2 6 season) 2025 INFLUENZA VACCINE (#1) 2025 07/30/2020 [...] age to complete this topic Care Teams Garment Finisher Relationship Specialty Start Date End Date Erickson Alejandre MD [address] [place] [address] PCP - General 02/14/11
--- OUTSIDE RECORDS SUMMARY | 2025-09-15 07:17 | XMS_ITS | Encounter Summary ---
Author Organization [facility] Healthcare Address [address] [place] [address] Care Team Providers Care Machine Overhauler Name Role Phone Zain Cabrera MD Primary Care Provider + [phone] Pantera Dewitt MD Unavailable [phone] Celine Lujan NP Unavailable [phone] Miscellaneous, Not In File Unavailable Unava ilable Encounter Details Date Type Department Care Team (Late st Contact Info) Description 09/09/2025 Telephone [facility] Medical Group Cardiology [address] [place] [address] Stan Bautista MD [address] [place] [address] Social History Tobacco Use Types [...] materials from doctor or pharmacy Never 07/25/2024 [facility] Utilities Answer Date Recorded In [...] often do you attend chur ch or judaism services? Never 06/18/2024 Do you belong to any clubs o r organizations such as orthodoxy groups, unions, fraternal or athletic groups, or [...] any time in the past 12 m [facility], were you homeless or living [...] file Legal Sex Male 4:46 AM SENIOR QUALITY ENGINEER Gender Identity Not on file Sexual Orientation Not on file documented as of this encounter Miscellaneous Notes * Telephone Encounter - Starr Barton MA - 09/14/2025 4:03 PM CST Year supply sent to pharmacy OR QUALITY ENGINEER * Telephone Encounter - Starr Barton MA - 09/14/2025 11:52 AM SENIOR QUALITY ENGINEER Spoke with Ольга at [facility] and she does not believe PA is needed. Pt was able to warp picker for$35 OR QUALITY ENGINEER * Telephone Encounter - Starr Barton MA - 09/09/2025 6:05 PM CST Pt notified and willing to try Repatha. Removed Atorvastatin from med list and already listed as anallergy for pt OR QUALITY ENGINEER * Telephone Encounter - Starr aBrton MA - 09/09/2025 9:[address] Bautista, Please advise. Thank you OR QUALITY ENGINEER * Telephone Encounter - Katie Mark - 09/09/2025 8:15 AM SENIOR QUALITY ENGINEER Patient states that atorvastatin 10mg tabs is causing muscle, joint, and tendon pain. Patient states his joints feel like they are falling apart. He states its hard for him to walk up and down the stirs. [phone] OR QUALITY ENGINEER documented in this encounter Plan of Treatment Not on file documented as of this encounter Visit Diagnoses Not on filedocumented in this encounter Care Teams Machine Overhauler Relationship Specialty Start Date End Date Zain Cabrera MD PCP - General Family Medicine 02/21/23 Pantera Dewitt MD Surgeon Cardiothoracic Surgery 06/23/24 Celine Lujan NP Nurse Practitioner Cardiovascular Disease 06/23/24 Miscellaneous, Not In File 06/23/24 documented as of this encounter
--- OUTSIDE RECORDS SUMMARY | 2025-09-15 07:17 | XMS_ITS | Clinical Summary ---
Author Organization [facility] Address [address] [place] [address] Care Team Providers Care Icu Staff Nurse Name Role Phone Zain Cabrera MD Primary Care Provider [phone] Panetra Dewitt MD Unavailable [phone] Celine Lujan NP Unavailable [phone] Miscellaneous, Not In File Unavailable Unava ilable [...] Active Additional Information Patient not taking.Reported on 07/14/2025 acetaminophen 500 mg capsuleIndicat ions:pain/feve r Take 2 capsules (1,000 mg total) by mouth every 6 (six) hours as needed for pain or headaches 4 Active senna-docusate (PERICOLACE) 8.6-50 mgIndications: constipation Take 1 tablet by mouth daily as needed for constipation 30 tablet 4 Active aspirin 81 mg enteric coated tabletIndicati ons:prevention of thrombosis Take 1 tablet (81 mg total) by mouth daily 30 tablet 2 4 Active carvediloL (COREG) 6.25 mg tablet Take 1 tablet (6.25 mg total) by mouth 2 (two) times a day with meals 180 tablet 3 5 026 Active clopidogreL (PLAVIX) 75 mg tablet TAKE 1 TABLET(75 MG) BY MOUTH DAILY 90 tablet 3 5 Active evolocumab (Repatha SureClick) 140 mg/mL pen injector Inject 1 mL (140 mg total) under the skin every 14 (fourteen) days 6 mL 3 5 Active atorvastatin (LIPITOR) 10 mg tablet Take 1 tablet (10 mg total) by mouth nightly 90 tablet 3 5 025 Discontin ued(Other ) evolocumab (Repatha SureClick) 140 mg/mL pen injector Inject 1 mL (140 mg total) under the skin every 14 (fourteen) days 2 mL 3 5 025 Discontin ued(Reord er) Active Problems Problem Noted Date Diagnosed Date Coronary artery disease (CAD) excluded 4 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 stable angina pectoris 06/18/2024 Coronary artery disease invo lving [place] coronary artery of [place] heart with angina pectoris 06/17/2024 Hypertension 06/17/2024 Hyperlipidemia 06/17/2024 Type 2 diabetes mellitus 06/17/2024 Encounters Date Type Department Care Team Description 09/09/2025 Orders Only [facility] Cardiology [address] [place] [address] [place] [phone] Starr Barton MA 09/09/2025 Telephone [facility] Cardiology [address] [place] [address] [place] [phone] Stan Bautista MD 07/14/2025 8:00 AM CDT Office Visit [facility] Cardiology [address] [place] [address] [place] [phone] Stan Bautista MD Coronary artery disease involving [place] coronary artery of [place] heart with angina pectoris (Primary Dx) 07/14/2025 Results Follow-Up [facility] Medical [facility] Cardiology [address] [place] [address] [place] [phone] Starr Sandhu RN Lipid panel, Hepatic function panel, Creatine kinase (CK), total 07/06/2025 Telephone [facility] Cardiology [address] [place] [phone] Stan Bautista MD Lab Results 06/22/2025 Telephone [facility] Cardiology [address] [place] [phone] Stan Bautista MD from Last 3 [...] materials from doctor or pharmacy Never 07/25/2024 [facility] Utilities Answer Date Recorded In the past 12 months has e [employer], docplanner, oil, or water [employer] threatened to shut off services in your [...] often do you attend chur ch or islam services? Never 06/18/2024 Do you belong to any clubs o r organizations such as mu-ism groups, unions, fraternal or athletic groups, or [...] any time in the past 12 m [facility], were you homeless or living in a retirement (including now)? No 06/18/2024 Personal Safety Answer Date Recorded Have you ever been in or are you currently in a harmful physical or emotional relationship or is someone making you feel afraid or unsafe? Denies 06/17/2024 Sex and Gender Information Value Date Recorded Sex Assigned at Not on file Legal Sex Male 4:46 AM [employer]UM[employer]ING [employer] Gender Identity Not on file Sexual Orientation Not on file Last Filed Vital Signs Vital Sign Reading Time Taken Comments Blood Pressure 142/74 07/14/2025 8:04 AM CDT Pulse 58 07/14/2025 8:04 AM CDT Temperature 37.1 C (98.7 F) 07/25/2024 9:15 AM CDT Respiratory Rate 16 07/14/2025 8:04 AM CDT Oxygen Saturation 99% 07/14/2025 8:04 AM CDT Inhaled Oxygen Concentration - - Weight 97.1 kg (214 lb) 07/14/2025 8:04 AM CDT Height 188 cm (6' 2) 07/14/2025 8:04 AM CDT Body Mass Index 27.48 07/14/2025 8:04 AM CDT Plan of Treatment Health Maintenance Due Date Last Done Comments Albumin Creatinine Ratio, Urine 1959 Colon Cancer Screening-Colonoscopy 1959 Depression Screening 1959 Hemoglobin A1C 1959 Hepatitis C Screening 1959 Prostate Cancer Screening-PSA 1959 Dilated Eye Exam 1959 Foot Exam 1959 Hepatitis B Screening 12/28/1977 Pneumococcal vaccine 65+ (1 of 2 - PCV) 12/28/1978 Zoster Vaccine (1 of 2) 12/28/2009 Abdominal Aortic Aneurysm (A AA) Screen 12/28/2024 Well Visit 65+ 12/28/2024 Influenza Vaccine (#1) 2025 , 05/23/2021, 07/30/2020, Additional history exists Fall Risk Assessment 06/23/2025 06/23/2024 eGFR 06/30/2025 06/30/2024, 05/27, 06/22/2024, Additional history exists Lipid Panel 07/10/2026 07/10/2025, 07/10/2024 DTaP/Tdap/Td Vaccine (2 - Td or Tdap) 01/04/2035 01/04/2025 Medical Devices Implanted Type Area Journeyman Plumber Device Identifier Shelf Expiration Date Model / Serial / Lot [employer] Plate Bone Low Profile 4 Hole Box Sternum Ti 115.103.04 - [id number] Implanted:Qty: 1 on 06/19/2024 by Pantera Dewitt MD at [facility] N/A: Chest Wall [employer] 115.103.04 / / [employer] Plate Bone Low Profile 6 Hole H Shape Sternum Ti 115.102.06 - [id number] Implanted:Qty: 1 on 06/19/2024 by Pantera Dewitt MD at [facility] N/A: Chest Wall [employer] 115.102.06 / / [employer] Plate Bone Low Profile 6 Hole O Concave Sternum Ti 115.604.06 - [id number] Implanted:Qty: 1 on 06/19/2024 by Pantera Dewitt MD at [facility] N/A: Chest Wall [employer] 115.604.06 / / [employer] Screw Bone Slf Drl Full Thread Locking 3.5x16mm Ti 100.035.16 - [id number] Implanted:Qty: 16 on 06/19/2024 by Pantera Dewitt MD at [facility] N/A: Chest Wall [employer] 100.035.16 / / Procedures Procedure Name Priority Date/Time Associated Diagnosis Comments CREATINE KINASE (CK), TOTAL Routine 07/10/2025 Hyperlipidemia, unspecified hyperlipidemia type Coronary artery disease involving [place] coronary artery of [place] heart without angina pectoris HEPATIC FUNCTION PANEL Routine 07/10/2025 Hyperlipidemia, unspecified hyperlipidemia type Coronary artery disease involving [place] coronary artery of [place] heart without angina pectoris LIPID PANEL Routine 07/10/2025 Hyperlipidemia, unspecified hyperlipidemia type Coronary artery disease involving [place] coronary artery of [place] heart without angina pectoris EGFR Routine 06/30/2024 12:40 PM CDT from Last 3 Months or Most Recently Relevant to Health Maintenance Results * Creatine kinase (CK), total (07/10/2025) SCRIBED Creatine Kinase, Total, Serum 95 55 - 170 EXTERNAL LAB Blood 07/10/2025 us Stan Bautista MD LAB BLOOD ORDERABLES Final Resul t EXTERNAL LAB * Hepatic function panel (07/10/2025) Pathologist [facility] SCRIBED Protein, Total, Serum 7.4 6.3 - 8.2 g/dL EXTERNAL LAB SCRIBED Albumin 4.4 3.5 - 5.0 g/dL EXTERNAL LAB SCRIBED Bilirubin, Total 1.2 0.2 - 1.3 mg/dL EXTERNAL LAB SCRIBED Bilirubin, Direct 0.0 0.0 - 0.3 mg/dL EXTERNAL LAB SCRIBED Alkaline Phosphatase 54 40 - 130 Units/L EXTERNAL LAB SCRIBED Aspartate Transaminase (AST) 31 10 - 50 Units/L EXTERNAL LAB SCRIBED Alanine Transaminase (ALT) 17 7 - 55 Units/L EXTERNAL LAB Blood 07/10/2025 Stan Bautista MD LAB BLOOD ORDERABLES Final Resul t Performing Organization Address [facility] Co de Phone Number EXTERNAL LAB * (ABNORMAL) Lipid panel (07/10/2025) [facility] SCRIBED Cholesterol, Total 216(A) 30 - 199 mg/dL EXTERNAL LAB SCRIBED Triglycerides 130 <=149 mg/dL EXTERNAL LAB SCRIBED HDL 42 >=40 mg/dL EXTERNAL LAB SCRIBED LDL 143(A) <=129 mg/dL EXTERNAL LAB Scribed Non-HDL Cholesterol EXTERNAL LAB Comment:Not performed by lab . SCRIBED Total Cholesterol/HDL Ratio EXTERNAL LAB Comment:Not performed by lab . Blood 07/10/2025 Stan Bautista MD LAB BLOOD ORDERABLES Final Resul t EXTERNAL LAB * (ABNORMAL) eGFR (06/30/2024 12:40 PM CDT) [facility] eGFR 51(L) >=60 mL/min/1. 73 m2 Comment: [...] MD LAB BLOOD ORDERABLES Final Res ult [facility] Department [place] [address] from Last 3 Months or Most Recently Relevant to Health Maintenance Insurance [employer] OPEN ACCESS Advance Directives For more information, please contact: [phone] * Full Code (Latest Code Status on File) Date Activated Date Inactivated Comments 06/17/2024 12:52 PM 06/23/2024 8:34 PM Care Teams Icu Staff Nurse Relationship Specialty Start Date End Date Zain Cabrera MD PCP - General Family Medicine 02/21/23 Pantera Dewitt MD Surgeon Cardiothoracic Surgery 06/23/24 Celine Lujan NP Nurse Practitioner Cardiovascular Disease 06/23/24 Miscellaneous, Not In File 06/23/24
[2025-09-15 08:10] LABS: Creatine Kinase 104 U/L (55-170); Magnesium 2.2 mg/dL (1.6-2.3)
[2025-09-15 08:11] LABS: Hemoglobin A1C 5.9 % (<5.7)
[2025-09-15 08:47] LABS: Prostate Specific Antigen 1.7 ng/mL (< OR = 4.0); Thyroid Stimulating Hormone 2.880 uIU/mL (0.465-4.680)
[2025-09-17 12:08] LABS: Estrogens, Total 112 pg/mL (56-213); Free Testosterone (Direct) 10.3 pg/mL (6.6-18.1)
[2025-09-18 13:08] LABS: ANA by IFA Rfx Titer/Pattern Negative (.)
== END 2025-09-15 07:13 | disposition home or self-care (01) ==
PROVIDERS: PCP Family Medicine
DX: E11.9 Type 2 diabetes mellitus without complications (principal); I10 Essential (primary) hypertension; I25.708 Atherosclerosis of coronary artery bypass graft(s), unspecified, with other forms of angina pectoris; E55.9 Vitamin D deficiency, unspecified; M79.10 Myalgia, unspecified site; E78.5 Hyperlipidemia, unspecified; R79.89 Other specified abnormal findings of blood chemistry; Z12.5 Encounter for screening for malignant neoplasm of prostate; Z13.29 Encounter for screening for other suspected endocrine disorder
CPT/HCPCS: 36415; 82024; 82306; 82533; 82550; 82627; 82672; 83036; 83525; 83527; 83695; 83735; 84153; 84402; 84403; 84443; 86038; G0103